=== PATIENT | male | born 1935 | race Caucasian/White ===

== ENCOUNTER 2017-06-08 07:30 | Inpatient (IN) | payer MEDICARE ==
[2017-06-08] MEDS ORDERED: Haloperidol Lactate 5 mg/mL 1mL Vial IM STA (07:43)
--- NOTE | 2017-06-08 07:43 | ED Physician Chart ---
ED Chief Complaint/HPI - Patient Information Date Seen:: 06/08/17 Time Seen:: 07:40 Chief Complaint:: Agitation History of Present Illness:: onset x one day of agitation and hostile behavior; no report of SIs, trauma, H/ As, neck pain, C/P, SOB, Abd. Pain, A/N/V/D/C, fever, chills, or urinary s/s Historian:: Patient, EMS Review:: Nurse's Note Reviewed, Old Chart Reviewed, EMS run form Reviewed ED Review of Systems - Review of Systems General/Constitutional: No fever, No chills, No weight loss, No weakness, No diaphoresis, No edema, No loss of appetite Skin: No skin lesions, No rash, No bruising Head: No headache, No light-headedness Eyes: No loss of vision, No pain, No diplopia ENT: No earache, No nasal drainage, No sore throat, No tinnitus Neck: No neck pain, No swelling, No thyromegaly, No stiffness, No mass noted Cardio Vascular: No chest pain, No palpitations, No PND, No orthopnea, No edema Pulmonary: No SOB, No cough, No sputum, No wheezing GI: No nausea, No vomiting, No diarrhea, No pain, No melena, No hematochezia, No constipation, No hematemesis G/U: No dysuria, No frequency, No hematuria, No nacturia Musculoskeletal: No bone or joint pain, No back pain, No muscle pain Endocrine: No polyuria, No polydipsia Psychiatric: Prior psych history, No depression, Anxiety, No suicidal ideation, No homicidal ideation, Auditory hallucination, No visual hallucination Hematopoietic: No bruising, No lymphadenopathy Allergic/Immuno: No urticaria, No angioedema Neurological: No syncope, No focal symptoms, No weakness, No paresthesia, No headache, No seizure, No dizziness, Confusion, No vertigo ED Past Medical History - Past Medical History Obtainable: Yes Past Medical History: HTN, Dyslipidemia, Arthritis, Dementia Family History: Diabetes Melitus, HTN Social History: Smoker, Alcohol, No Drug Use, Single, Care Facility Surgical History: None Psychiatricy History: Bipolar, Dementia Medication: Reviewed ED Physical Exam - Physical Examination General/Constitutional: Awake, Well-developed, well-nourished, Alert, No distress, GCS 15, Non-toxic appearing, Ambulatory Head: Atraumatic Eyes: Lids, conjuctiva normal, PERRL, EOMI Skin: Nl inspection, No rash, No skin lesions, No ecchymosis, Well hydrated, No lymphadenopathy ENMT: External ears, nose nl, TM canals nl, Nasal exam nl, Lips, teeth, gums nl , Oropharynx nl, Tonsils nl Neck: Nontender, Full ROM w/o pain, No JVD, No nuchal rigidity, No bruit, No mass, No stridor Respiratory: Nl effort/Exclusion, Clear to Auscultation, No Wheeze/Rhonchi/Rales Cardio Vascular: RRR, No murmur, gallop, rubs, NL S1 S2, Carotid/Femoral/Distal pulses equal bilaterally GI: No tenderness/rebounding/guarding, No organomegaly, No hernia, Normal BS's, Nondistended, No mass/bruits, No McBurney tenderness : No CVA tenderness Extremities: No tenderness or effusion, Full ROM, normal strength in all extremities, No edema, Normal digits & nails Neuro/Psych: Alert/oriented, DTR's symmetric, Normal sensory exam, Normal motor strength, Judgement/insight normal, Mood normal, Normal gait, No focal deficits Other Neuro/Psych comments:: Disoriented, Confused, and Agitated; + Psychmotor Agitationn; no SIs Misc: Normal back, No paraspinal tenderness ED Labs/Radiology/EKG Results - Lab Results Comments:: unremarkable ED Septic Shock - . Is Septic Shock (SBP<90, OR Lactate>4 mmol\L) present?: No ED Reassessment (Disposition) - Reassessment Reassessment:: pt is asymptomatic upon discharge Reassessment Condition:: Improved - Diagnosis Diagnosis:: Bipolar Disorder; Medical Clearance; Agitation-Resolved - Aftercare/Follow up Instructions Aftercare/Follow-Up Instructions:: Counseled pt regarding lab results/diagnosis & need follow up, Counseled pt & family regarding lab results/diagnosis & need follow up - Patient Disposition Discharge/Transfer:: Acute Care w/in this hosp Accepting Physician:: Dr. Christianson Time Called:: 929 Time Responded:: 09:30 Admitted to:: [facility] Spoke to:: Dr. Christianson Admitting Medical Physician:: Dr. Kadhium Admitting Psych Physician:: Dr. Reed Condition at Disposition:: Stable, Improved
[2017-06-08] MEDS ORDERED: Haloperidol Lactate 5 mg/mL 1mL Vial ONE (07:52)
[2017-06-08 08:08] LABS: URINE MICROSCOPIC INDICATED? YES; URINE SOURCE CLEAN C
[2017-06-08 08:13] LABS: URINE BILIRUBIN NEGATIVE (NEGATIVE); URINE BLOOD NEGATIVE (NEGATIVE); URINE GLUCOSE (UA) NEGATIVE (NEGATIVE); URINE KETONE NEGATIVE (NEGATIVE); URINE LEUKOCYTE ESTERASE NEGATIVE (NEGATIVE); URINE NITRATE NEGATIVE (NEGATIVE); URINE PROTEIN NEGATIVE (NEGATIVE); URINE UROBILINOGEN 0.2 E.U./dL (0.2 - 1.0)
[2017-06-08 08:24] LABS: URINE CLARITY CLEAR (CLEAR); URINE COLOR YELLOW
[2017-06-08 08:25] LABS: URINE RBC 0-2 /hpf (0-5)
[2017-06-08 08:26] LABS: URINE BACTERIA NONE SEEN /hpf (NONE SEEN); URINE EPITHELIAL CELLS RARE /lpf (FEW); URINE WBC 0-2 /hpf (0-5)
[2017-06-08 09:16] LABS: % BASOPHILS 0.7 % (0.0-2.0); % EOSINOPHILS 0.5 % (0.0-5.0); % LYMPHOCYTES 9.9 % (20.0-50.0); % MONOCYTES 6.5 % (2.0-10.0); % NEUTROPHILS 82.4 % (40.0-80.0); BASOPHILE ABSOLUTE 0.1 Th/cumm (0-0.2); HEMATOCRIT 31.9 % (41.0-60); HEMOGLOBIN 10.8 gm/dL (12-16); LYMPHOCYTE ABSOLUTE 0.9 Th/cmm (1.5-3.0); MEAN CELL VOLUME 91.5 fl (80-99); MEAN CORPUSCULAR HEMOGLOBIN 30.9 pg (27.0-31.0); MEAN CORPUSCULAR HGB CONC 33.8 pg (28.0-36.0); MEAN PLATELET VOLUME 6.9 fl; MONOCYTE ABSOLUTE 0.6 Th/cmm (0.3-1.0); NEUTROPHILE ABSOLUTE 7.6 Th/cmm (1.8-8.0); PLATELET COUNT 317 Th/cmm (150-400); RED BLOOD COUNT 3.48 Mil/cmm (3.80-5.80); RED CELL DISTRIBUTION WIDTH 14.4 % (11.5-20.0); WHITE BLOOD COUNT 9.2 Th/cmm (4.8-10.8)
[2017-06-08 09:32] LABS: ACETAMINOPHEN < 10.0 ug/mL (10.0-30.0); ALBUMIN 3.6 gm/dL (4.2-5.5); ALKALINE PHOSPHATASE 180 U/L (34-104); ANION GAP 7.4 (7.0-16.0); BILIRUBIN,TOTAL 0.5 mg/dL (0.3-1.0); BUN - UREA NITROGEN 28 mg/dL (7-25); CALCIUM SERUM 10.1 mg/dL (8.6-10.3); CARBON DIOXIDE 28.5 mEq/L (21.0-31.0); CHLORIDE 107 mEq/L (98-107); CHOLESTEROL 189 mg/dL (<200); CREATININE - SERUM 1.6 mg/dL (0.7-1.3); GLUCOSE 129 mg/dL (70-105); HDL -HIGH DENSITY LIPOPROTEIN 43 mg/dL (23-92); POTASSIUM SERUM 3.9 mEq/L (3.5-5.1); SALICYLATES (ASPIRIN) < 25.0 mg/L (30.0-100.0); SGOT 16 U/L (13-39); SGPT/ALT 13 U/L (7-52); SODIUM SERUM 139 mEq/L (136-145); TOTAL PROTEIN,SERUM 7.2 gm/dL (6.0-8.3); TRIGLYCERIDES 118 mg/dL (<150)
[2017-06-08 09:53] LABS: AMPHETAMINE URINE NEGATIVE (NEGATIVE); BARBITURATES URINE NEGATIVE (NEGATIVE); BENZODIAZEPINES QUAL URINE NEGATIVE (NEGATIVE); CANNABINOID THC NEGATIVE (NEGATIVE); COCAINE METABOLITE QUAL URINE NEGATIVE (NEGATIVE); METHADONE URINE NEGATIVE (NEGATIVE); METHAMPHETAMINES QUAL URINE NEGATIVE (NEGATIVE); OPIATES (MORPHINE) QUAL. URINE POSITIVE (NEGATIVE); PHENCYCLIDINE (PCP) URINE NEGATIVE (NEGATIVE); TRICYCLICS (TCA) QUAL. URINE NEGATIVE (NEGATIVE)
[2017-06-08 13:00] VITALS: BP 132/76
[2017-06-08] MEDS ORDERED: Magnesium Hydroxide (MOM) 30 mL UDC PO PRN (13:10)
[2017-06-08] MEDS ORDERED: Maalox 30 mL Cup PO PRN (13:10)
[2017-06-08 18:31] LABS: A1C % 4.8 % (4.0-6.0)
[2017-06-09] MEDS: Multivitamin Tab PO SCH (08:58)
--- NOTE | 2017-06-09 17:49 | Psychosocial Evaluation ---
DATE OF SERVICE: 06/09/2017 JUSTIFICATION FOR ADMISSION: Agitation, hostile behaviors. CHIEF COMPLAINT: "I am in the room, I am in the room." HISTORY OF PRESENT ILLNESS: An 82-year-old male, confused, disoriented, rambling speech, hostile, agitated, aggressive, very confused, disoriented, not answering any questions appropriately in a Abida chair. PAST PSYCHIATRIC HISTORY: Unclear but concern for dementia. FAMILY HISTORY: Unknown. SOCIAL HISTORY: The patient is not answering any questions. However, it is listed that he is residing in [facility], unclear social support at this time. We will try to increase collateral. MEDICAL PROBLEMS: Hypertension, arthritis also listed with dementia. MENTAL STATUS EXAMINATION: Stated age, in a Abida chair, restless, agitated, confused, rambling speech. No overt SI. Unclear psychotic symptoms. Poor insight, poor judgment, poor impulse control. Psychomotorically accelerated and agitated. MEDICATIONS: Noted. PROVISIONAL DIAGNOSES: hx of developmental disability; Dementia per documentation, will attempt to rule out; rule out dementia with behavioral disturbances; psychosis, unspecified; mood, unspecified; anxiety, unspecified. MEDICAL: Please see full H and P. ESTIMATED LENGTH OF STAY: 5-7 days. ASSESSMENT: The patient requiring inpatient hospitalization, agitated, confused, combative. PLAN: We will try to increase collateral. TREATMENT PLAN: Includes group as well as milieu therapy. CONDITIONS FOR DISCHARGE: Improved mood. Improved insight. Less agitation. JOB# [id number] YORDAN
--- NOTE | 2017-06-09 21:15 | History & Physical ---
ADMIT DATE: 06/08/2017 HISTORY OF PRESENT ILLNESS: The patient is an 82-year-old male with long history of dementia, degenerative joint disease, skin lesion of the forehead, resident at [facility], transferred to the Emergency Room with history of agitation. The patient was evaluated by the ER physician, admitted to [facility]. The patient is a very poor historian. PAST MEDICAL HISTORY: Significant for degenerative joint disease, chronic anemia, skin lesion of the external ear, agitation. PAST SURGICAL HISTORY: No recent surgery. ALLERGIES: None. MEDICATIONS: Follow admission reconciliation. SOCIAL HISTORY: Nonsmoker, no alcohol, no drugs. FAMILY HISTORY: Noncontributory. REVIEW OF SYSTEMS: IMMUNO SYSTEM: No history of chronic immune disorder. CARDIOVASCULAR SYSTEM: No coronary artery disease. ENDOCRINE SYSTEM: No diabetes or thyroid problem. GASTROINTESTINAL SYSTEM: No upper or lower gastrointestinal bleed. NEUROLOGICAL SYSTEM: He has history of dementia. SKELETOMUSCULAR SYSTEM: He has a lesion on the external ear. PHYSICAL EXAMINATION: GENERAL: He is not coherent. VITAL SIGNS: Temperature 98.7, heart rate 94, blood pressure 128/80. HEENT: Normocephalic. Pupils are reactive to light and accommodation. Sclerae clear. NECK: Supple. Negative for lymphadenopathy, JVD or bruit. CHEST: Entry of air bilateral normal. No rales, rhonchi or wheezing. HEART: S1, S2 normal, no gallop rhythm. ABDOMEN: Soft, bowel sounds positive. EXTREMITIES: No edema. BACK: No tenderness. SKIN: Significant for lesion on the right extremity. NEUROLOGIC: He is awake, alert, not fully oriented. No focal motor or sensory deficits. Cranial nerves 2-12 are intact. ASSESSMENT: 1. Anemia. 2. Dementia. 3. Skin lesion of the right external ear. 4. Degenerative joint disease. PLAN: The patient was admitted to the hospital under Dr. Reed service. Medical problems to be addressed during hospitalization is psychosis. Medical problems addressed at discharge are degenerative joint disease and anemia. The patient is medically stable for activity. Thank you, Dr. Reed, for asking me to see your patient. JOB# [id number]
[2017-06-10] MEDS: Multivitamin Tab PO SCH (09:51)
--- NOTE | 2017-06-10 16:40 | Progress Notes ---
DATE: 06/10/2017 An 82-year-old male, confused, disoriented, agitated when I say hello to him, he states," what do you want" and then uses an exploitive, the N word to be specific, very confused, staring blankly. Apparently, he is going to the [facility], still unruly at times, verbally accosting staff. ASSESSMENT: The patient remains symptomatic, unruly, agitated, aggressive. He is linked to the [facility] rude and unruly on exam. PLAN: We will continue to monitor given his hostile behavior. He is not safe for discharge. Currently on Namenda and Aricept. We will continue to monitor on his behaviors. [facility]# [id number]
--- NOTE | 2017-06-10 19:47 | Internal Medicine Prog Note ---
Internal Medicine Subjective - Subjective Service Date: 06/10/17 Patient seen and examined:: with staff Patient is:: awake, in bed, confused Per staff patient has:: no adverse event Internal Medicine Objective - Results Result Diagrams: 06/08/17 09:00 06/08/17 09:00 Recent Labs: Laboratory Last Values WBC 9.2 Th/cmm (4.8-10.8) 06/08/17 09:00 RBC 3.48 Mil/cmm (3.80-5.80) L 06/08/17 09:00 Hgb 10.8 gm/dL (12-16) L 06/08/17 09:00 Hct 31.9 % (41.0-60) L 06/08/17 09:00 MCV 91.5 fl (80-99) 06/08/17 09:00 MCH 30.9 pg (27.0-31.0) 06/08/17 09:00 MCHC Differential 33.8 pg (28.0-36.0) 06/08/17 09:00 RDW 14.4 % (11.5-20.0) 06/08/17 09:00 Plt Count 317 Th/cmm (150-400) 06/08/17 09:00 MPV 6.9 fl 06/08/17 09:00 Neutrophils % 82.4 % (40.0-80.0) H 06/08/17 09:00 Lymphocytes % 9.9 % (20.0-50.0) L 06/08/17 09:00 Monocytes % 6.5 % (2.0-10.0) 06/08/17 09:00 Eosinophils % 0.5 % (0.0-5.0) 06/08/17 09:00 Basophils % 0.7 % (0.0-2.0) 06/08/17 09:00 Sodium 139 mEq/L (136-145) 06/08/17 09:00 Potassium 3.9 mEq/L (3.5-5.1) 06/08/17 09:00 Chloride 107 mEq/L (98-107) 06/08/17 09:00 Carbon Dioxide 28.5 mEq/L (21.0-31.0) 06/08/17 09:00 Anion Gap 7.4 (7.0-16.0) 06/08/17 09:00 BUN 28 mg/dL (7-25) H 06/08/17 09:00 Creatinine 1.6 mg/dL (0.7-1.3) H 06/08/17 09:00 Est GFR ( Amer) TNP 06/08/17 09:00 Est GFR (Non-Af Amer) TNP 06/08/17 09:00 BUN/Creatinine Ratio 17.5 06/08/17 09:00 Glucose 129 mg/dL (70-105) H 06/08/17 09:00 Hemoglobin A1c % 4.8 % (4.0-6.0) 06/08/17 09:00 Calcium 10.1 mg/dL (8.6-10.3) 06/08/17 09:00 Total Bilirubin 0.5 mg/dL (0.3-1.0) 06/08/17 09:00 AST 16 U/L (13-39) 06/08/17 09:00 ALT 13 U/L (7-52) 06/08/17 09:00 Alkaline Phosphatase 180 U/L (34-104) H 06/08/17 09:00 Total Protein 7.2 gm/dL (6.0-8.3) 06/08/17 09:00 Albumin 3.6 gm/dL (4.2-5.5) L 06/08/17 09:00 Globulin 3.6 gm/dL 06/08/17 09:00 Albumin/Globulin Ratio 1.0 (1.0-1.8) 06/08/17 09:00 Triglycerides 118 mg/dL (<150) 06/08/17 09:00 Cholesterol 189 mg/dL (<200) 06/08/17 09:00 LDL Cholesterol Direct 137 mg/dL (75-193) 06/08/17 09:00 HDL Cholesterol 43 mg/dL (23-92) 06/08/17 09:00 TSH 3.25 uIU/ml (0.34-5.60) 06/08/17 09:00 Urine Source CLEAN C 06/08/17 07:45 Urine Color YELLOW 06/08/17 07:45 Urine Clarity CLEAR (CLEAR) 06/08/17 07:45 Urine pH 6.0 (4.6 - 8.0) 06/08/17 07:45 Ur Specific [place] 1.020 (1.005-1.030) 06/08/17 07:45 Urine Protein NEGATIVE mg/dL (NEGATIVE) 06/08/17 07:45 Urine Glucose (UA) NEGATIVE mg/dL (NEGATIVE) 06/08/17 07:45 Urine Ketones NEGATIVE mg/dL (NEGATIVE) 06/08/17 07:45 Urine Blood NEGATIVE (NEGATIVE) 06/08/17 07:45 Urine Nitrate NEGATIVE (NEGATIVE) 06/08/17 07:45 Urine Bilirubin NEGATIVE (NEGATIVE) 06/08/17 07:45 Urine Urobilinogen 0.2 E.U./dL (0.2 - 1.0) 06/08/17 07:45 Ur Leukocyte Esterase NEGATIVE (NEGATIVE) 06/08/17 07:45 Urine RBC 0-2 /hpf (0-5) H 06/08/17 07:45 Urine WBC 0-2 /hpf (0-5) 06/08/17 07:45 Ur Epithelial Cells RARE /lpf (FEW) 06/08/17 07:45 Urine Bacteria NONE SEEN /hpf (NONE SEEN) 06/08/17 07:45 Salicylates < 25.0 mg/L (30.0-100.0) L 06/08/17 09:00 Urine Opiates Screen POSITIVE (NEGATIVE) H 06/08/17 07:45 Urine Methadone Screen NEGATIVE (NEGATIVE) 06/08/17 07:45 Acetaminophen < 10.0 ug/mL (10.0-30.0) L 06/08/17 09:00 Ur Barbiturates Screen NEGATIVE (NEGATIVE) 06/08/17 07:45 Ur Tricyclics Screen NEGATIVE (NEGATIVE) 06/08/17 07:45 Ur Phencyclidine Scrn NEGATIVE (NEGATIVE) 06/08/17 07:45 Amphetamines Screen NEGATIVE (NEGATIVE) 06/08/17 07:45 U Methamphetamines Scrn NEGATIVE (NEGATIVE) 06/08/17 07:45 U Benzodiazepines Scrn NEGATIVE (NEGATIVE) 06/08/17 07:45 U Cocaine Metab Screen NEGATIVE (NEGATIVE) 06/08/17 07:45 U Cannabinoids Screen NEGATIVE (NEGATIVE) 06/08/17 07:45 Ethyl Alcohol < 10 mg/dL (0-10) 06/08/17 09:00 - Physical Exam Vitals and I&O: Vital Signs Temp 98.6 F 06/10/17 14:00 Pulse 91 06/10/17 14:00 Resp 20 06/10/17 14:00 BP 135/82 06/10/17 14:00 Pulse Ox 96 06/10/17 14:00 Intake & Output 06/10/17 06/10/17 06/11/17 06:59 18:59 06:59 Intake Total 120 1000 Balance 120 1000 Intake: Oral 120 1000 Other: # Voids 3 3 # Bowel Movements 0 1 Active Medications: Current Medications Acetaminophen (Tylenol) 650 mg PO Q4HR PRN PRN Reason: Mild Pain / Temp above 100 Stop: 08/07/17 13:09 Al Hydrox/Mg Hydrox/Simethicone (Maalox) 30 ml PO Q4HR PRN PRN Reason: GI DISTRESS Stop: 08/07/17 13:09 Donepezil HCl (Aricept) 5 mg PO HS CARMINE Stop: 08/08/17 20:59 Last Admin: 06/09/17 21:39 Dose: 5 mg Lorazepam (Ativan) 0.5 mg PO Q6HR PRN; Protocol PRN Reason: Agitation Stop: 08/08/17 17:00 Last Admin: 06/10/17 09:52 Dose: 0.5 mg Magnesium Hydroxide (Milk Of Magnesia) 30 ml PO HS PRN PRN Reason: Constipation Memantine (Namenda) 5 mg PO DAILY [facility]MINE Stop: 08/09/17 08:59 Last Admin: 06/10/17 09:51 Dose: 5 mg Multivitamins/Vitamin C (Theragran) 1 tab PO DAILY [facility] Stop: 08/08/17 08:59 Last Admin: 06/10/17 09:51 Dose: 1 tab Zolpidem Tartrate (Ambien) 5 mg PO HS PRN PRN Reason: Insomnia Stop: 08/07/17 13:09 Last Admin: 06/09/17 21:39 Dose: 5 mg General: demented HEENT: NC/AT, PERRLA, EOMI, anicteric sclerae, throat clear Neck: Supple, No JVD, No thyromegaly Lungs: CTAB Abdomen: soft, non-tender, non-distended Extremities: clear Neurological: no change Internal Medicine Assmt/Plan - Assessment Assessment: 1.ANEMIA 2.DJD. 3.LEFT EXTERNAL EAR SKIN LESION. 4.DEMENTIA. - Plan Plan: CONTINUE ON CURRENT MEDICATION AND DIET.
[2017-06-11] MEDS: Multivitamin Tab PO SCH (09:03)
--- NOTE | 2017-06-11 19:42 | Internal Medicine Prog Note ---
Internal Medicine Subjective - Subjective Service Date: 06/11/17 Patient seen and examined:: with staff Patient is:: awake, in bed, confused Per staff patient has:: no adverse event Internal Medicine Objective - Results Result Diagrams: 06/08/17 09:00 06/08/17 09:00 Recent Labs: Laboratory Last Values WBC 9.2 Th/cmm (4.8-10.8) 06/08/17 09:00 RBC 3.48 Mil/cmm (3.80-5.80) L 06/08/17 09:00 Hgb 10.8 gm/dL (12-16) L 06/08/17 09:00 Hct 31.9 % (41.0-60) L 06/08/17 09:00 MCV 91.5 fl (80-99) 06/08/17 09:00 MCH 30.9 pg (27.0-31.0) 06/08/17 09:00 MCHC Differential 33.8 pg (28.0-36.0) 06/08/17 09:00 RDW 14.4 % (11.5-20.0) 06/08/17 09:00 Plt Count 317 Th/cmm (150-400) 06/08/17 09:00 MPV 6.9 fl 06/08/17 09:00 Neutrophils % 82.4 % (40.0-80.0) H 06/08/17 09:00 Lymphocytes % 9.9 % (20.0-50.0) L 06/08/17 09:00 Monocytes % 6.5 % (2.0-10.0) 06/08/17 09:00 Eosinophils % 0.5 % (0.0-5.0) 06/08/17 09:00 Basophils % 0.7 % (0.0-2.0) 06/08/17 09:00 Sodium 139 mEq/L (136-145) 06/08/17 09:00 Potassium 3.9 mEq/L (3.5-5.1) 06/08/17 09:00 Chloride 107 mEq/L (98-107) 06/08/17 09:00 Carbon Dioxide 28.5 mEq/L (21.0-31.0) 06/08/17 09:00 Anion Gap 7.4 (7.0-16.0) 06/08/17 09:00 BUN 28 mg/dL (7-25) H 06/08/17 09:00 Creatinine 1.6 mg/dL (0.7-1.3) H 06/08/17 09:00 Est GFR ( Amer) TNP 06/08/17 09:00 Est GFR (Non-Af Amer) TNP 06/08/17 09:00 BUN/Creatinine Ratio 17.5 06/08/17 09:00 Glucose 129 mg/dL (70-105) H 06/08/17 09:00 Hemoglobin A1c % 4.8 % (4.0-6.0) 06/08/17 09:00 Calcium 10.1 mg/dL (8.6-10.3) 06/08/17 09:00 Total Bilirubin 0.5 mg/dL (0.3-1.0) 06/08/17 09:00 AST 16 U/L (13-39) 06/08/17 09:00 ALT 13 U/L (7-52) 06/08/17 09:00 Alkaline Phosphatase 180 U/L (34-104) H 06/08/17 09:00 Total Protein 7.2 gm/dL (6.0-8.3) 06/08/17 09:00 Albumin 3.6 gm/dL (4.2-5.5) L 06/08/17 09:00 Globulin 3.6 gm/dL 06/08/17 09:00 Albumin/Globulin Ratio 1.0 (1.0-1.8) 06/08/17 09:00 Triglycerides 118 mg/dL (<150) 06/08/17 09:00 Cholesterol 189 mg/dL (<200) 06/08/17 09:00 LDL Cholesterol Direct 137 mg/dL (75-193) 06/08/17 09:00 HDL Cholesterol 43 mg/dL (23-92) 06/08/17 09:00 TSH 3.25 uIU/ml (0.34-5.60) 06/08/17 09:00 Urine Source CLEAN C 06/08/17 07:45 Urine Color YELLOW 06/08/17 07:45 Urine Clarity CLEAR (CLEAR) 06/08/17 07:45 Urine pH 6.0 (4.6 - 8.0) 06/08/17 07:45 Ur Specific [place] 1.020 (1.005-1.030) 06/08/17 07:45 Urine Protein NEGATIVE mg/dL (NEGATIVE) 06/08/17 07:45 Urine Glucose (UA) NEGATIVE mg/dL (NEGATIVE) 06/08/17 07:45 Urine Ketones NEGATIVE mg/dL (NEGATIVE) 06/08/17 07:45 Urine Blood NEGATIVE (NEGATIVE) 06/08/17 07:45 Urine Nitrate NEGATIVE (NEGATIVE) 06/08/17 07:45 Urine Bilirubin NEGATIVE (NEGATIVE) 06/08/17 07:45 Urine Urobilinogen 0.2 E.U./dL (0.2 - 1.0) 06/08/17 07:45 Ur Leukocyte Esterase NEGATIVE (NEGATIVE) 06/08/17 07:45 Urine RBC 0-2 /hpf (0-5) H 06/08/17 07:45 Urine WBC 0-2 /hpf (0-5) 06/08/17 07:45 Ur Epithelial Cells RARE /lpf (FEW) 06/08/17 07:45 Urine Bacteria NONE SEEN /hpf (NONE SEEN) 06/08/17 07:45 Salicylates < 25.0 mg/L (30.0-100.0) L 06/08/17 09:00 Urine Opiates Screen POSITIVE (NEGATIVE) H 06/08/17 07:45 Urine Methadone Screen NEGATIVE (NEGATIVE) 06/08/17 07:45 Acetaminophen < 10.0 ug/mL (10.0-30.0) L 06/08/17 09:00 Ur Barbiturates Screen NEGATIVE (NEGATIVE) 06/08/17 07:45 Ur Tricyclics Screen NEGATIVE (NEGATIVE) 06/08/17 07:45 Ur Phencyclidine Scrn NEGATIVE (NEGATIVE) 06/08/17 07:45 Amphetamines Screen NEGATIVE (NEGATIVE) 06/08/17 07:45 U Methamphetamines Scrn NEGATIVE (NEGATIVE) 06/08/17 07:45 U Benzodiazepines Scrn NEGATIVE (NEGATIVE) 06/08/17 07:45 U Cocaine Metab Screen NEGATIVE (NEGATIVE) 06/08/17 07:45 U Cannabinoids Screen NEGATIVE (NEGATIVE) 06/08/17 07:45 Ethyl Alcohol < 10 mg/dL (0-10) 06/08/17 09:00 RPR NONREACTIVE (NONREACTIVE) 06/08/17 09:00 - Physical Exam Vitals and I&O: Vital Signs Temp 97.9 F 06/11/17 16:27 Pulse 77 06/11/17 16:27 Resp 19 06/11/17 16:27 BP 133/57 06/11/17 16:27 Pulse Ox 97 06/11/17 16:27 Intake & Output 06/11/17 06/11/17 06/12/17 06:59 18:59 06:59 Intake Total 400 900 Balance 400 900 Intake: Oral 400 900 Other: # Voids 3 4 # Bowel Movements 1 1 Active Medications: Current Medications Acetaminophen (Tylenol) 650 mg PO Q4HR PRN PRN Reason: Mild Pain / Temp above 100 Stop: 08/07/17 13:09 Al Hydrox/Mg Hydrox/Simethicone (Maalox) 30 ml PO Q4HR PRN PRN Reason: GI DISTRESS Stop: 08/07/17 13:09 Donepezil HCl (Aricept) 5 mg PO HS CARMINE Stop: 08/08/17 20:59 Last Admin: 06/10/17 20:48 Dose: 5 mg Lorazepam (Ativan) 0.5 mg PO Q6HR PRN; Protocol PRN Reason: Agitation Stop: 08/08/17 17:00 Last Admin: 06/10/17 09:52 Dose: 0.5 mg Magnesium Hydroxide (Milk Of Magnesia) 30 ml PO HS PRN PRN Reason: Constipation Memantine (Namenda) 5 mg PO DAILY CARMINE Stop: 08/09/17 08:59 Last Admin: 06/11/17 09:03 Dose: Not Given Multivitamins/Vitamin C (Theragran) 1 tab PO DAILY [facility] Stop: 08/08/17 08:59 Last Admin: 06/11/17 09:03 Dose: Not Given Zolpidem Tartrate (Ambien) 5 mg PO HS PRN PRN Reason: Insomnia Stop: 08/07/17 13:09 Last Admin: 06/10/17 20:48 Dose: 5 mg General: demented HEENT: NC/AT, PERRLA, EOMI, anicteric sclerae, throat clear Neck: Supple, No JVD, No thyromegaly Lungs: CTAB Abdomen: soft, non-tender, non-distended Extremities: clear Neurological: no change Internal Medicine Assmt/Plan - Assessment Assessment: 1.ANEMIA 2.DJD. 3.LEFT EXTERNAL EAR SKIN LESION. 4.DEMENTIA. - Plan Plan: CONTINUE ON CURRENT MEDICATION AND DIET.
--- NOTE | 2017-06-11 19:53 | Progress Notes ---
DATE: 06/11/2017 The patient is currently in the hospital, seen today 06/11/2017, agitation, escalation of behaviors, disoriented on [id number] today, the patient mumbling and nonsensical statements I can understand him. Yesterday, he was screaming expletives and was quite rude, dementia per documentation, the patient remains unruly highly unpredictable, still with ongoing symptoms indicative of behavioral disturbances and indicative of instability. He is linked to the [facility]. He remains reclusive and isolated. Currently, started on Namenda, Aricept as well. ASSESSMENT: The patient remains symptomatic, unruly, impulsive, unpredictable, still at times verbally accosting staff including this clinician. He remains pretty confused. PLAN: We will continue to monitor. We will monitor for any further behavioral disturbances and will make appropriate medication adjustments. JOB# [id number]
[2017-06-12] MEDS: Multivitamin Tab PO SCH (08:52)
--- NOTE | 2017-06-12 19:14 | Internal Medicine Prog Note ---
Internal Medicine Subjective - Subjective Service Date: 06/12/17 Patient seen and examined:: with staff Patient is:: awake, in bed, confused Per staff patient has:: no adverse event Internal Medicine Objective - Results Result Diagrams: 06/08/17 09:00 06/08/17 09:00 Recent Labs: Laboratory Last Values WBC 9.2 Th/cmm (4.8-10.8) 06/08/17 09:00 RBC 3.48 Mil/cmm (3.80-5.80) L 06/08/17 09:00 Hgb 10.8 gm/dL (12-16) L 06/08/17 09:00 Hct 31.9 % (41.0-60) L 06/08/17 09:00 MCV 91.5 fl (80-99) 06/08/17 09:00 MCH 30.9 pg (27.0-31.0) 06/08/17 09:00 MCHC Differential 33.8 pg (28.0-36.0) 06/08/17 09:00 RDW 14.4 % (11.5-20.0) 06/08/17 09:00 Plt Count 317 Th/cmm (150-400) 06/08/17 09:00 MPV 6.9 fl 06/08/17 09:00 Neutrophils % 82.4 % (40.0-80.0) H 06/08/17 09:00 Lymphocytes % 9.9 % (20.0-50.0) L 06/08/17 09:00 Monocytes % 6.5 % (2.0-10.0) 06/08/17 09:00 Eosinophils % 0.5 % (0.0-5.0) 06/08/17 09:00 Basophils % 0.7 % (0.0-2.0) 06/08/17 09:00 Sodium 139 mEq/L (136-145) 06/08/17 09:00 Potassium 3.9 mEq/L (3.5-5.1) 06/08/17 09:00 Chloride 107 mEq/L (98-107) 06/08/17 09:00 Carbon Dioxide 28.5 mEq/L (21.0-31.0) 06/08/17 09:00 Anion Gap 7.4 (7.0-16.0) 06/08/17 09:00 BUN 28 mg/dL (7-25) H 06/08/17 09:00 Creatinine 1.6 mg/dL (0.7-1.3) H 06/08/17 09:00 Est GFR ( Amer) TNP 06/08/17 09:00 Est GFR (Non-Af Amer) TNP 06/08/17 09:00 BUN/Creatinine Ratio 17.5 06/08/17 09:00 Glucose 129 mg/dL (70-105) H 06/08/17 09:00 Hemoglobin A1c % 4.8 % (4.0-6.0) 06/08/17 09:00 Calcium 10.1 mg/dL (8.6-10.3) 06/08/17 09:00 Total Bilirubin 0.5 mg/dL (0.3-1.0) 06/08/17 09:00 AST 16 U/L (13-39) 06/08/17 09:00 ALT 13 U/L (7-52) 06/08/17 09:00 Alkaline Phosphatase 180 U/L (34-104) H 06/08/17 09:00 Total Protein 7.2 gm/dL (6.0-8.3) 06/08/17 09:00 Albumin 3.6 gm/dL (4.2-5.5) L 06/08/17 09:00 Globulin 3.6 gm/dL 06/08/17 09:00 Albumin/Globulin Ratio 1.0 (1.0-1.8) 06/08/17 09:00 Triglycerides 118 mg/dL (<150) 06/08/17 09:00 Cholesterol 189 mg/dL (<200) 06/08/17 09:00 LDL Cholesterol Direct 137 mg/dL (75-193) 06/08/17 09:00 HDL Cholesterol 43 mg/dL (23-92) 06/08/17 09:00 TSH 3.25 uIU/ml (0.34-5.60) 06/08/17 09:00 Urine Source CLEAN C 06/08/17 07:45 Urine Color YELLOW 06/08/17 07:45 Urine Clarity CLEAR (CLEAR) 06/08/17 07:45 Urine pH 6.0 (4.6 - 8.0) 06/08/17 07:45 Ur Specific [place] 1.020 (1.005-1.030) 06/08/17 07:45 Urine Protein NEGATIVE mg/dL (NEGATIVE) 06/08/17 07:45 Urine Glucose (UA) NEGATIVE mg/dL (NEGATIVE) 06/08/17 07:45 Urine Ketones NEGATIVE mg/dL (NEGATIVE) 06/08/17 07:45 Urine Blood NEGATIVE (NEGATIVE) 06/08/17 07:45 Urine Nitrate NEGATIVE (NEGATIVE) 06/08/17 07:45 Urine Bilirubin NEGATIVE (NEGATIVE) 06/08/17 07:45 Urine Urobilinogen 0.2 E.U./dL (0.2 - 1.0) 06/08/17 07:45 Ur Leukocyte Esterase NEGATIVE (NEGATIVE) 06/08/17 07:45 Urine RBC 0-2 /hpf (0-5) H 06/08/17 07:45 Urine WBC 0-2 /hpf (0-5) 06/08/17 07:45 Ur Epithelial Cells RARE /lpf (FEW) 06/08/17 07:45 Urine Bacteria NONE SEEN /hpf (NONE SEEN) 06/08/17 07:45 Salicylates < 25.0 mg/L (30.0-100.0) L 06/08/17 09:00 Urine Opiates Screen POSITIVE (NEGATIVE) H 06/08/17 07:45 Urine Methadone Screen NEGATIVE (NEGATIVE) 06/08/17 07:45 Acetaminophen < 10.0 ug/mL (10.0-30.0) L 06/08/17 09:00 Ur Barbiturates Screen NEGATIVE (NEGATIVE) 06/08/17 07:45 Ur Tricyclics Screen NEGATIVE (NEGATIVE) 06/08/17 07:45 Ur Phencyclidine Scrn NEGATIVE (NEGATIVE) 06/08/17 07:45 Amphetamines Screen NEGATIVE (NEGATIVE) 06/08/17 07:45 U Methamphetamines Scrn NEGATIVE (NEGATIVE) 06/08/17 07:45 U Benzodiazepines Scrn NEGATIVE (NEGATIVE) 06/08/17 07:45 U Cocaine Metab Screen NEGATIVE (NEGATIVE) 06/08/17 07:45 U Cannabinoids Screen NEGATIVE (NEGATIVE) 06/08/17 07:45 Ethyl Alcohol < 10 mg/dL (0-10) 06/08/17 09:00 RPR NONREACTIVE (NONREACTIVE) 06/08/17 09:00 - Physical Exam Vitals and I&O: Vital Signs Temp 98.6 F 06/12/17 14:49 Pulse 60 06/12/17 14:49 Resp 18 06/12/17 14:49 BP 119/58 06/12/17 14:49 Pulse Ox 98 06/12/17 14:49 Intake & Output 06/12/17 06/12/17 06/13/17 06:59 18:59 07:59 Intake Total 490 900 Balance 490 900 Intake: Oral 490 900 Other: # Voids 3 4 # Bowel Movements 0 2 Active Medications: Current Medications Acetaminophen (Tylenol) 650 mg PO Q4HR PRN PRN Reason: Mild Pain / Temp above 100 Stop: 08/07/17 13:09 Al Hydrox/Mg Hydrox/Simethicone (Maalox) 30 ml PO Q4HR PRN PRN Reason: GI DISTRESS Stop: 08/07/17 13:09 Donepezil HCl (Aricept) 5 mg PO HS CARMINE Stop: 08/08/17 20:59 Last Admin: 06/11/17 20:43 Dose: 5 mg Lorazepam (Ativan) 0.5 mg PO Q6HR PRN; Protocol PRN Reason: Agitation Stop: 08/08/17 17:00 Last Admin: 06/11/17 20:43 Dose: 0.5 mg Magnesium Hydroxide (Milk Of Magnesia) 30 ml PO HS PRN PRN Reason: Constipation Memantine (Namenda) 5 mg PO DAILY CARMINE Stop: 08/09/17 08:59 Last Admin: 06/12/17 08:52 Dose: 5 mg Multivitamins/Vitamin C (Theragran) 1 tab PO DAILY CARMINE Stop: 08/08/17 08:59 Last Admin: 06/12/17 08:52 Dose: 1 tab Zolpidem Tartrate (Ambien) 5 mg PO HS PRN PRN Reason: Insomnia Stop: 08/07/17 13:09 Last Admin: 06/11/17 20:44 Dose: 5 mg General: demented HEENT: NC/AT, PERRLA, EOMI, anicteric sclerae, throat clear Neck: Supple, No JVD, No thyromegaly Lungs: CTAB Abdomen: soft, non-tender, non-distended Extremities: clear Neurological: no change Internal Medicine Assmt/Plan - Assessment Assessment: 1.ANEMIA 2.DJD. 3.LEFT EXTERNAL EAR SKIN LESION. 4.DEMENTIA. - Plan Plan: CONTINUE ON CURRENT MEDICATION AND DIET.
--- NOTE | 2017-06-12 22:55 | Progress Notes ---
DATE: 06/12/2017 Dr. Schneider covering for Dr. Reed. SUBJECTIVE: Chart reviewed and the patient interviewed. Also discussed the patient's condition with the staff and reviewed records and labs. The patient is still agitated and still have episodes of aggressive behavior and also still seems to be disoriented. The patient also has still disorganized thoughts and talking to self and mumbling and because of yelling and screaming. The patient also needs lots of redirections because of his unpredictable behavior. ASSESSMENT: The patient is still agitated and psychotic. TREATMENT PLAN: We will continue monitoring his behavior and his condition closely. Also, we will continue Namenda and Aricept and will continue to monitor behavior closely. JOB# [id number]
[2017-06-13] MEDS: Multivitamin Tab PO SCH (10:20)
--- NOTE | 2017-06-13 18:08 | Progress Notes ---
DATE: 06/13/2017 Chart reviewed and the patient interviewed. Also discussed the patient's condition with the staff and reviewed records and labs. The patient is agitated and is today covering his face and did not want to talk to me. Also, easily agitated and easily irritable, but at the same time when he cannot cover the face seems to be paranoid and disoriented. The patient also still has disorganized thoughts and rambling and thought processes are circumstantial with flight of ideas. The patient also still has episodes of yelling and screaming, but seems to be less than before. ASSESSMENT: The patient is still psychotic. TREATMENT PLAN: We will continue to monitor his behavior and his condition closely. Also, continue Aricept and Namenda and continued to work on behavior modification and on his agitation. JOB# [id number]
--- NOTE | 2017-06-13 23:46 | Internal Medicine Prog Note ---
Internal Medicine Subjective - Subjective Service Date: 06/13/17 Patient seen and examined:: without staff Patient is:: awake, in bed, confused Per staff patient has:: no adverse event Internal Medicine Objective - Results Result Diagrams: 06/08/17 09:00 06/08/17 09:00 Recent Labs: Laboratory Last Values WBC 9.2 Th/cmm (4.8-10.8) 06/08/17 09:00 RBC 3.48 Mil/cmm (3.80-5.80) L 06/08/17 09:00 Hgb 10.8 gm/dL (12-16) L 06/08/17 09:00 Hct 31.9 % (41.0-60) L 06/08/17 09:00 MCV 91.5 fl (80-99) 06/08/17 09:00 MCH 30.9 pg (27.0-31.0) 06/08/17 09:00 MCHC Differential 33.8 pg (28.0-36.0) 06/08/17 09:00 RDW 14.4 % (11.5-20.0) 06/08/17 09:00 Plt Count 317 Th/cmm (150-400) 06/08/17 09:00 MPV 6.9 fl 06/08/17 09:00 Neutrophils % 82.4 % (40.0-80.0) H 06/08/17 09:00 Lymphocytes % 9.9 % (20.0-50.0) L 06/08/17 09:00 Monocytes % 6.5 % (2.0-10.0) 06/08/17 09:00 Eosinophils % 0.5 % (0.0-5.0) 06/08/17 09:00 Basophils % 0.7 % (0.0-2.0) 06/08/17 09:00 Sodium 139 mEq/L (136-145) 06/08/17 09:00 Potassium 3.9 mEq/L (3.5-5.1) 06/08/17 09:00 Chloride 107 mEq/L (98-107) 06/08/17 09:00 Carbon Dioxide 28.5 mEq/L (21.0-31.0) 06/08/17 09:00 Anion Gap 7.4 (7.0-16.0) 06/08/17 09:00 BUN 28 mg/dL (7-25) H 06/08/17 09:00 Creatinine 1.6 mg/dL (0.7-1.3) H 06/08/17 09:00 Est GFR ( Amer) TNP 06/08/17 09:00 Est GFR (Non-Af Amer) TNP 06/08/17 09:00 BUN/Creatinine Ratio 17.5 06/08/17 09:00 Glucose 129 mg/dL (70-105) H 06/08/17 09:00 Hemoglobin A1c % 4.8 % (4.0-6.0) 06/08/17 09:00 Calcium 10.1 mg/dL (8.6-10.3) 06/08/17 09:00 Total Bilirubin 0.5 mg/dL (0.3-1.0) 06/08/17 09:00 AST 16 U/L (13-39) 06/08/17 09:00 ALT 13 U/L (7-52) 06/08/17 09:00 Alkaline Phosphatase 180 U/L (34-104) H 06/08/17 09:00 Total Protein 7.2 gm/dL (6.0-8.3) 06/08/17 09:00 Albumin 3.6 gm/dL (4.2-5.5) L 06/08/17 09:00 Globulin 3.6 gm/dL 06/08/17 09:00 Albumin/Globulin Ratio 1.0 (1.0-1.8) 06/08/17 09:00 Triglycerides 118 mg/dL (<150) 06/08/17 09:00 Cholesterol 189 mg/dL (<200) 06/08/17 09:00 LDL Cholesterol Direct 137 mg/dL (75-193) 06/08/17 09:00 HDL Cholesterol 43 mg/dL (23-92) 06/08/17 09:00 TSH 3.25 uIU/ml (0.34-5.60) 06/08/17 09:00 Urine Source CLEAN C 06/08/17 07:45 Urine Color YELLOW 06/08/17 07:45 Urine Clarity CLEAR (CLEAR) 06/08/17 07:45 Urine pH 6.0 (4.6 - 8.0) 06/08/17 07:45 Ur Specific [place] 1.020 (1.005-1.030) 06/08/17 07:45 Urine Protein NEGATIVE mg/dL (NEGATIVE) 06/08/17 07:45 Urine Glucose (UA) NEGATIVE mg/dL (NEGATIVE) 06/08/17 07:45 Urine Ketones NEGATIVE mg/dL (NEGATIVE) 06/08/17 07:45 Urine Blood NEGATIVE (NEGATIVE) 06/08/17 07:45 Urine Nitrate NEGATIVE (NEGATIVE) 06/08/17 07:45 Urine Bilirubin NEGATIVE (NEGATIVE) 06/08/17 07:45 Urine Urobilinogen 0.2 E.U./dL (0.2 - 1.0) 06/08/17 07:45 Ur Leukocyte Esterase NEGATIVE (NEGATIVE) 06/08/17 07:45 Urine RBC 0-2 /hpf (0-5) H 06/08/17 07:45 Urine WBC 0-2 /hpf (0-5) 06/08/17 07:45 Ur Epithelial Cells RARE /lpf (FEW) 06/08/17 07:45 Urine Bacteria NONE SEEN /hpf (NONE SEEN) 06/08/17 07:45 Salicylates < 25.0 mg/L (30.0-100.0) L 06/08/17 09:00 Urine Opiates Screen POSITIVE (NEGATIVE) H 06/08/17 07:45 Urine Methadone Screen NEGATIVE (NEGATIVE) 06/08/17 07:45 Acetaminophen < 10.0 ug/mL (10.0-30.0) L 06/08/17 09:00 Ur Barbiturates Screen NEGATIVE (NEGATIVE) 06/08/17 07:45 Ur Tricyclics Screen NEGATIVE (NEGATIVE) 06/08/17 07:45 Ur Phencyclidine Scrn NEGATIVE (NEGATIVE) 06/08/17 07:45 Amphetamines Screen NEGATIVE (NEGATIVE) 06/08/17 07:45 U Methamphetamines Scrn NEGATIVE (NEGATIVE) 06/08/17 07:45 U Benzodiazepines Scrn NEGATIVE (NEGATIVE) 06/08/17 07:45 U Cocaine Metab Screen NEGATIVE (NEGATIVE) 06/08/17 07:45 U Cannabinoids Screen NEGATIVE (NEGATIVE) 06/08/17 07:45 Ethyl Alcohol < 10 mg/dL (0-10) 06/08/17 09:00 RPR NONREACTIVE (NONREACTIVE) 06/08/17 09:00 - Physical Exam Vitals and I&O: Vital Signs Temp 97.3 F 06/13/17 20:38 Pulse 79 06/13/17 20:38 Resp 20 06/13/17 20:38 BP 108/55 06/13/17 20:38 Pulse Ox 99 06/13/17 20:38 Intake & Output 06/13/17 06/13/17 06/14/17 06:59 18:59 06:59 Intake Total 900 Balance 900 Intake: Oral 900 Other: # Voids 3 # Bowel Movements Active Medications: Current Medications Acetaminophen (Tylenol) 650 mg PO Q4HR PRN PRN Reason: Mild Pain / Temp above 100 Stop: 08/07/17 13:09 Al Hydrox/Mg Hydrox/Simethicone (Maalox) 30 ml PO Q4HR PRN PRN Reason: GI DISTRESS Stop: 08/07/17 13:09 Donepezil HCl (Aricept) 5 mg PO HS CARMINE Stop: 08/08/17 20:59 Last Admin: 06/13/17 20:53 Dose: 5 mg Lorazepam (Ativan) 0.5 mg PO Q6HR PRN; Protocol PRN Reason: Agitation Stop: 08/08/17 17:00 Last Admin: 06/13/17 14:42 Dose: 0.5 mg Magnesium Hydroxide (Milk Of Magnesia) 30 ml PO HS PRN PRN Reason: Constipation Memantine (Namenda) 5 mg PO DAILY CARMINE Stop: 08/09/17 08:59 Last Admin: 06/13/17 10:20 Dose: Not Given Multivitamins/Vitamin C (Theragran) 1 tab PO DAILY CARMINE Stop: 08/08/17 08:59 Last Admin: 06/13/17 10:20 Dose: Not Given Zolpidem Tartrate (Ambien) 5 mg PO HS PRN PRN Reason: Insomnia Stop: 08/07/17 13:09 Last Admin: 06/13/17 20:53 Dose: 5 mg General: demented HEENT: NC/AT, PERRLA, EOMI, anicteric sclerae, throat clear Neck: Supple, No JVD, No thyromegaly Lungs: CTAB Abdomen: soft, non-tender, non-distended Extremities: clear Neurological: no change Internal Medicine Assmt/Plan - Assessment Assessment: 1.ANEMIA 2.DJD. 3.LEFT EXTERNAL EAR SKIN LESION. 4.DEMENTIA. - Plan Plan: CONTINUE ON CURRENT MEDICATION AND DIET.
[2017-06-14] MEDS: Multivitamin Tab PO SCH (12:47)
--- NOTE | 2017-06-14 19:18 | Internal Medicine Prog Note ---
Internal Medicine Subjective - Subjective Service Date: 06/14/17 Patient seen and examined:: with staff Patient is:: awake, in bed, confused Per staff patient has:: no adverse event Internal Medicine Objective - Results Result Diagrams: 06/08/17 09:00 06/08/17 09:00 Recent Labs: Laboratory Last Values WBC 9.2 Th/cmm (4.8-10.8) 06/08/17 09:00 RBC 3.48 Mil/cmm (3.80-5.80) L 06/08/17 09:00 Hgb 10.8 gm/dL (12-16) L 06/08/17 09:00 Hct 31.9 % (41.0-60) L 06/08/17 09:00 MCV 91.5 fl (80-99) 06/08/17 09:00 MCH 30.9 pg (27.0-31.0) 06/08/17 09:00 MCHC Differential 33.8 pg (28.0-36.0) 06/08/17 09:00 RDW 14.4 % (11.5-20.0) 06/08/17 09:00 Plt Count 317 Th/cmm (150-400) 06/08/17 09:00 MPV 6.9 fl 06/08/17 09:00 Neutrophils % 82.4 % (40.0-80.0) H 06/08/17 09:00 Lymphocytes % 9.9 % (20.0-50.0) L 06/08/17 09:00 Monocytes % 6.5 % (2.0-10.0) 06/08/17 09:00 Eosinophils % 0.5 % (0.0-5.0) 06/08/17 09:00 Basophils % 0.7 % (0.0-2.0) 06/08/17 09:00 Sodium 139 mEq/L (136-145) 06/08/17 09:00 Potassium 3.9 mEq/L (3.5-5.1) 06/08/17 09:00 Chloride 107 mEq/L (98-107) 06/08/17 09:00 Carbon Dioxide 28.5 mEq/L (21.0-31.0) 06/08/17 09:00 Anion Gap 7.4 (7.0-16.0) 06/08/17 09:00 BUN 28 mg/dL (7-25) H 06/08/17 09:00 Creatinine 1.6 mg/dL (0.7-1.3) H 06/08/17 09:00 Est GFR ( Amer) TNP 06/08/17 09:00 Est GFR (Non-Af Amer) TNP 06/08/17 09:00 BUN/Creatinine Ratio 17.5 06/08/17 09:00 Glucose 129 mg/dL (70-105) H 06/08/17 09:00 Hemoglobin A1c % 4.8 % (4.0-6.0) 06/08/17 09:00 Calcium 10.1 mg/dL (8.6-10.3) 06/08/17 09:00 Total Bilirubin 0.5 mg/dL (0.3-1.0) 06/08/17 09:00 AST 16 U/L (13-39) 06/08/17 09:00 ALT 13 U/L (7-52) 06/08/17 09:00 Alkaline Phosphatase 180 U/L (34-104) H 06/08/17 09:00 Total Protein 7.2 gm/dL (6.0-8.3) 06/08/17 09:00 Albumin 3.6 gm/dL (4.2-5.5) L 06/08/17 09:00 Globulin 3.6 gm/dL 06/08/17 09:00 Albumin/Globulin Ratio 1.0 (1.0-1.8) 06/08/17 09:00 Triglycerides 118 mg/dL (<150) 06/08/17 09:00 Cholesterol 189 mg/dL (<200) 06/08/17 09:00 LDL Cholesterol Direct 137 mg/dL (75-193) 06/08/17 09:00 HDL Cholesterol 43 mg/dL (23-92) 06/08/17 09:00 TSH 3.25 uIU/ml (0.34-5.60) 06/08/17 09:00 Urine Source CLEAN C 06/08/17 07:45 Urine Color YELLOW 06/08/17 07:45 Urine Clarity CLEAR (CLEAR) 06/08/17 07:45 Urine pH 6.0 (4.6 - 8.0) 06/08/17 07:45 Ur Specific [place] 1.020 (1.005-1.030) 06/08/17 07:45 Urine Protein NEGATIVE mg/dL (NEGATIVE) 06/08/17 07:45 Urine Glucose (UA) NEGATIVE mg/dL (NEGATIVE) 06/08/17 07:45 Urine Ketones NEGATIVE mg/dL (NEGATIVE) 06/08/17 07:45 Urine Blood NEGATIVE (NEGATIVE) 06/08/17 07:45 Urine Nitrate NEGATIVE (NEGATIVE) 06/08/17 07:45 Urine Bilirubin NEGATIVE (NEGATIVE) 06/08/17 07:45 Urine Urobilinogen 0.2 E.U./dL (0.2 - 1.0) 06/08/17 07:45 Ur Leukocyte Esterase NEGATIVE (NEGATIVE) 06/08/17 07:45 Urine RBC 0-2 /hpf (0-5) H 06/08/17 07:45 Urine WBC 0-2 /hpf (0-5) 06/08/17 07:45 Ur Epithelial Cells RARE /lpf (FEW) 06/08/17 07:45 Urine Bacteria NONE SEEN /hpf (NONE SEEN) 06/08/17 07:45 Salicylates < 25.0 mg/L (30.0-100.0) L 06/08/17 09:00 Urine Opiates Screen POSITIVE (NEGATIVE) H 06/08/17 07:45 Urine Methadone Screen NEGATIVE (NEGATIVE) 06/08/17 07:45 Acetaminophen < 10.0 ug/mL (10.0-30.0) L 06/08/17 09:00 Ur Barbiturates Screen NEGATIVE (NEGATIVE) 06/08/17 07:45 Ur Tricyclics Screen NEGATIVE (NEGATIVE) 06/08/17 07:45 Ur Phencyclidine Scrn NEGATIVE (NEGATIVE) 06/08/17 07:45 Amphetamines Screen NEGATIVE (NEGATIVE) 06/08/17 07:45 U Methamphetamines Scrn NEGATIVE (NEGATIVE) 06/08/17 07:45 U Benzodiazepines Scrn NEGATIVE (NEGATIVE) 06/08/17 07:45 U Cocaine Metab Screen NEGATIVE (NEGATIVE) 06/08/17 07:45 U Cannabinoids Screen NEGATIVE (NEGATIVE) 06/08/17 07:45 Ethyl Alcohol < 10 mg/dL (0-10) 06/08/17 09:00 RPR NONREACTIVE (NONREACTIVE) 06/08/17 09:00 - Physical Exam Vitals and I&O: Vital Signs Temp 97.6 F 06/14/17 15:19 Pulse 82 06/14/17 15:19 Resp 19 06/14/17 15:19 BP 108/59 06/14/17 15:19 Pulse Ox 99 06/14/17 15:19 Intake & Output 06/14/17 06/14/17 06/15/17 06:59 18:59 06:59 Intake Total 1020 900 Balance 1020 900 Intake: Oral 1020 900 Other: # Voids 3 4 # Bowel Movements 1 Active Medications: Current Medications Acetaminophen (Tylenol) 650 mg PO Q4HR PRN PRN Reason: Mild Pain / Temp above 100 Stop: 08/07/17 13:09 Al Hydrox/Mg Hydrox/Simethicone (Maalox) 30 ml PO Q4HR PRN PRN Reason: GI DISTRESS Stop: 08/07/17 13:09 Donepezil HCl (Aricept) 5 mg PO HS CARMINE Stop: 08/08/17 20:59 Last Admin: 06/13/17 20:53 Dose: 5 mg Lorazepam (Ativan) 0.5 mg PO Q6HR PRN PRN Reason: Agitation Stop: 08/13/17 16:06 Magnesium Hydroxide (Milk Of Magnesia) 30 ml PO HS PRN PRN Reason: Constipation Memantine (Namenda) 5 mg PO DAILY [facility] Stop: 08/09/17 08:59 Last Admin: 06/14/17 12:47 Dose: Not Given Multivitamins/Vitamin C (Theragran) 1 tab PO DAILY CARMINE Stop: 08/08/17 08:59 Last Admin: 06/14/17 12:47 Dose: Not Given Zolpidem Tartrate (Ambien) 5 mg PO HS PRN PRN Reason: Insomnia Stop: 08/07/17 13:09 Last Admin: 06/13/17 20:53 Dose: 5 mg General: demented HEENT: NC/AT, PERRLA, EOMI, anicteric sclerae, throat clear Neck: Supple, No JVD, No thyromegaly Lungs: CTAB Abdomen: soft, non-tender, non-distended Extremities: clear Neurological: no change Internal Medicine Assmt/Plan - Assessment Assessment: 1.ANEMIA 2.DJD. 3.LEFT EXTERNAL EAR SKIN LESION. 4.DEMENTIA. - Plan Plan: CONTINUE ON CURRENT MEDICATION AND DIET. Nutritional Asmnt/Malnutr-PDOC - Dietary Evaluation Malnutrition Findings (Please click <Entered> for more info): Nutritional Asmnt/Malnutrition Start: 06/14/17 09: 57 Text: Status: Complete Freq: Document 06/14/17 09:57 GILLESKATERIN (Rec: 06/14/17 10:01 LCKATERIN [id number]) Nutritional Asmnt/Malnutrition Patient General Information Nutritional Screening Moderate Risk Diagnosis psychosis Pertinent Medical Hx/Surgical Hx DJD, chronic anemia, skin lesion, agitation Subjective Information Per EMR, PO intake 50-100%, avg 75%. Per nurse note, pt only oriented to self. Current Diet Order/ Nutrition Support [facility] soft chopped Pertinent Medications theragran Pertinent Labs 06/08 Na 139, K 3.9, Cl 107, BUN 28, Cr 1.6, Glucose 129, A1c 4.8, Alb 3.6 Nutritional Hx/Data Height 1.78 m Height (Calculated Centimeters) 177.8 Current Weight (lbs) 68.039 kg Weight (Calculated Kilograms) 68.0 Weight (Calculated Grams) 76152.9 [place] Body Weight 166 Body Mass Index (BMI) 21.5 Weight Status Approriate GI Symptoms GI Symptoms None Last BM 06/12 x 2 Difficult in: None Skin Integrity/Comment: laceration to left ear Estimated Nutritional Goals BEE in Kcals: Using Current wt Calories/Kcals/Kg 25-30 Kcals Calculated 7814-6866 Protein: Using Current wt Protein g/k Protein Calculated 75 Fluid: ml 1875-2250ml(1ml/kcal) Nutritional Problem No current Nutrition Prob Problem N/A Intervention/Recommendation Comments 1. Continue with [facility] soft chopped diet as ordered. 2. Monitor PO intake, wt, labs and skin integrity 3. F/U as low risk in 7 days, 06/21 Expected Outcomes/Goals Expected Outcomes/Goals 1. PO intake to meet at least 75% of nutritional needs. 2. Wt stability, skin to remain intact, labs to approach WNL.
--- NOTE | 2017-06-14 21:17 | Progress Notes ---
DATE: 06/14/2017 The patient is currently in the hospital, had been unruly, not safe for a lower level of care, admitted on , agitated, hostile behaviors, unruly. On [id number], the patient remains calm, isolative, still highly impulsive; however still at times refusing interview. Dr. Schneider saw the patient over the weekend, noted he remained disorganized, talking to self, mumbling to self. MEDICATIONS: Reviewed. ASSESSMENT: The patient remains symptomatic, still agitated, impulsive, however he does seem somewhat calmer versus his admission. We will continue to monitor. JOB# [id number]
[2017-06-15] MEDS: Multivitamin Tab PO SCH (10:02)
--- NOTE | 2017-06-15 17:07 | Progress Notes ---
DATE: 06/15/2017 SUBJECTIVE: The patient is currently in the hospital, still agitated, unruly, yelling, screaming, demanding coffee, highly impulsive, unpredictable, not answering most questions, mumbling to self, very hard to understand. He remained somewhat reclusive and isolated. Dr. Schneider saw the patient over the weekend, noted to remain quite agitated, rambling, circumstantial on psychosis. ASSESSMENT AND PLAN: The patient remains symptomatic, not safe for a lower level of care. Continue Aricept and Namenda. Consider an antipsychotic if his symptoms did not alleviate further. [facility]# [id number]
[2017-06-16] MEDS: Multivitamin Tab PO SCH (09:46)
--- NOTE | 2017-06-16 13:31 | Internal Medicine Prog Note ---
Internal Medicine Subjective - Subjective Service Date: 06/16/17 Patient seen and examined:: without staff Patient is:: awake, in bed, confused Per staff patient has:: no adverse event Internal Medicine Objective - Results Result Diagrams: 06/08/17 09:00 06/08/17 09:00 Recent Labs: Laboratory Last Values WBC 9.2 Th/cmm (4.8-10.8) 06/08/17 09:00 RBC 3.48 Mil/cmm (3.80-5.80) L 06/08/17 09:00 Hgb 10.8 gm/dL (12-16) L 06/08/17 09:00 Hct 31.9 % (41.0-60) L 06/08/17 09:00 MCV 91.5 fl (80-99) 06/08/17 09:00 MCH 30.9 pg (27.0-31.0) 06/08/17 09:00 MCHC Differential 33.8 pg (28.0-36.0) 06/08/17 09:00 RDW 14.4 % (11.5-20.0) 06/08/17 09:00 Plt Count 317 Th/cmm (150-400) 06/08/17 09:00 MPV 6.9 fl 06/08/17 09:00 Neutrophils % 82.4 % (40.0-80.0) H 06/08/17 09:00 Lymphocytes % 9.9 % (20.0-50.0) L 06/08/17 09:00 Monocytes % 6.5 % (2.0-10.0) 06/08/17 09:00 Eosinophils % 0.5 % (0.0-5.0) 06/08/17 09:00 Basophils % 0.7 % (0.0-2.0) 06/08/17 09:00 Sodium 139 mEq/L (136-145) 06/08/17 09:00 Potassium 3.9 mEq/L (3.5-5.1) 06/08/17 09:00 Chloride 107 mEq/L (98-107) 06/08/17 09:00 Carbon Dioxide 28.5 mEq/L (21.0-31.0) 06/08/17 09:00 Anion Gap 7.4 (7.0-16.0) 06/08/17 09:00 BUN 28 mg/dL (7-25) H 06/08/17 09:00 Creatinine 1.6 mg/dL (0.7-1.3) H 06/08/17 09:00 Est GFR ( Amer) TNP 06/08/17 09:00 Est GFR (Non-Af Amer) TNP 06/08/17 09:00 BUN/Creatinine Ratio 17.5 06/08/17 09:00 Glucose 129 mg/dL (70-105) H 06/08/17 09:00 Hemoglobin A1c % 4.8 % (4.0-6.0) 06/08/17 09:00 Calcium 10.1 mg/dL (8.6-10.3) 06/08/17 09:00 Total Bilirubin 0.5 mg/dL (0.3-1.0) 06/08/17 09:00 AST 16 U/L (13-39) 06/08/17 09:00 ALT 13 U/L (7-52) 06/08/17 09:00 Alkaline Phosphatase 180 U/L (34-104) H 06/08/17 09:00 Total Protein 7.2 gm/dL (6.0-8.3) 06/08/17 09:00 Albumin 3.6 gm/dL (4.2-5.5) L 06/08/17 09:00 Globulin 3.6 gm/dL 06/08/17 09:00 Albumin/Globulin Ratio 1.0 (1.0-1.8) 06/08/17 09:00 Triglycerides 118 mg/dL (<150) 06/08/17 09:00 Cholesterol 189 mg/dL (<200) 06/08/17 09:00 LDL Cholesterol Direct 137 mg/dL (75-193) 06/08/17 09:00 HDL Cholesterol 43 mg/dL (23-92) 06/08/17 09:00 TSH 3.25 uIU/ml (0.34-5.60) 06/08/17 09:00 Urine Source CLEAN C 06/08/17 07:45 Urine Color YELLOW 06/08/17 07:45 Urine Clarity CLEAR (CLEAR) 06/08/17 07:45 Urine pH 6.0 (4.6 - 8.0) 06/08/17 07:45 Ur Specific [place] 1.020 (1.005-1.030) 06/08/17 07:45 Urine Protein NEGATIVE mg/dL (NEGATIVE) 06/08/17 07:45 Urine Glucose (UA) NEGATIVE mg/dL (NEGATIVE) 06/08/17 07:45 Urine Ketones NEGATIVE mg/dL (NEGATIVE) 06/08/17 07:45 Urine Blood NEGATIVE (NEGATIVE) 06/08/17 07:45 Urine Nitrate NEGATIVE (NEGATIVE) 06/08/17 07:45 Urine Bilirubin NEGATIVE (NEGATIVE) 06/08/17 07:45 Urine Urobilinogen 0.2 E.U./dL (0.2 - 1.0) 06/08/17 07:45 Ur Leukocyte Esterase NEGATIVE (NEGATIVE) 06/08/17 07:45 Urine RBC 0-2 /hpf (0-5) H 06/08/17 07:45 Urine WBC 0-2 /hpf (0-5) 06/08/17 07:45 Ur Epithelial Cells RARE /lpf (FEW) 06/08/17 07:45 Urine Bacteria NONE SEEN /hpf (NONE SEEN) 06/08/17 07:45 Salicylates < 25.0 mg/L (30.0-100.0) L 06/08/17 09:00 Urine Opiates Screen POSITIVE (NEGATIVE) H 06/08/17 07:45 Urine Methadone Screen NEGATIVE (NEGATIVE) 06/08/17 07:45 Acetaminophen < 10.0 ug/mL (10.0-30.0) L 06/08/17 09:00 Ur Barbiturates Screen NEGATIVE (NEGATIVE) 06/08/17 07:45 Ur Tricyclics Screen NEGATIVE (NEGATIVE) 06/08/17 07:45 Ur Phencyclidine Scrn NEGATIVE (NEGATIVE) 06/08/17 07:45 Amphetamines Screen NEGATIVE (NEGATIVE) 06/08/17 07:45 U Methamphetamines Scrn NEGATIVE (NEGATIVE) 06/08/17 07:45 U Benzodiazepines Scrn NEGATIVE (NEGATIVE) 06/08/17 07:45 U Cocaine Metab Screen NEGATIVE (NEGATIVE) 06/08/17 07:45 U Cannabinoids Screen NEGATIVE (NEGATIVE) 06/08/17 07:45 Ethyl Alcohol < 10 mg/dL (0-10) 06/08/17 09:00 RPR NONREACTIVE (NONREACTIVE) 06/08/17 09:00 - Physical Exam Vitals and I&O: Vital Signs Temp 97.9 F 06/16/17 06:26 Pulse 56 06/16/17 06:26 Resp 19 06/16/17 06:26 BP 135/50 06/16/17 06:26 Pulse Ox 96 06/16/17 06:26 Intake & Output 06/15/17 06/16/17 06/16/17 18:59 06:59 18:59 Intake Total 1200 360 Balance 1200 360 Intake: Oral 1200 360 Other: # Voids 3 1 # Bowel Movements 1 1 Active Medications: Current Medications Acetaminophen (Tylenol) 650 mg PO Q4HR PRN PRN Reason: Mild Pain / Temp above 100 Stop: 08/07/17 13:09 Al Hydrox/Mg Hydrox/Simethicone (Maalox) 30 ml PO Q4HR PRN PRN Reason: GI DISTRESS Stop: 08/07/17 13:09 Donepezil HCl (Aricept) 5 mg PO HS CARMINE Stop: 08/08/17 20:59 Last Admin: 06/15/17 20:52 Dose: 5 mg Lorazepam (Ativan) 0.5 mg PO Q6HR PRN PRN Reason: Agitation Stop: 08/13/17 16:06 Magnesium Hydroxide (Milk Of Magnesia) 30 ml PO HS PRN PRN Reason: Constipation Memantine (Namenda) 5 mg PO DAILY CARMINE Stop: 08/09/17 08:59 Last Admin: 06/16/17 09:46 Dose: Not Given Multivitamins/Vitamin C (Theragran) 1 tab PO DAILY CARMINE Stop: 08/08/17 08:59 Last Admin: 06/16/17 09:46 Dose: Not Given Zolpidem Tartrate (Ambien) 5 mg PO HS PRN PRN Reason: Insomnia Stop: 08/07/17 13:09 Last Admin: 06/15/17 20:52 Dose: 5 mg General: demented HEENT: NC/AT, PERRLA, EOMI, anicteric sclerae, throat clear Neck: Supple, No JVD, No thyromegaly Lungs: CTAB Abdomen: soft, non-tender, non-distended Extremities: clear Neurological: no change Internal Medicine Assmt/Plan - Assessment Assessment: 1.ANEMIA 2.DJD. 3.LEFT EXTERNAL EAR SKIN LESION. 4.DEMENTIA. - Plan Plan: CONTINUE ON CURRENT MEDICATION AND DIET. Nutritional Asmnt/Malnutr-PDOC - Dietary Evaluation Malnutrition Findings (Please click <Entered> for more info): Nutritional Asmnt/Malnutrition Start: 06/14/17 09: 57 Text: Status: Complete Freq: Document 06/14/17 09:57 QUINTON (Rec: 06/14/17 10:01 [email or web address]) Nutritional Asmnt/Malnutrition Patient General Information Nutritional Screening Moderate Risk Diagnosis psychosis Pertinent Medical Hx/Surgical Hx DJD, chronic anemia, skin lesion, agitation Subjective Information Per EMR, PO intake 50-100%, avg 75%. Per nurse note, pt only oriented to self. Current Diet Order/ Nutrition Support [facility] soft chopped Pertinent Medications theragran Pertinent Labs 06/08 Na 139, K 3.9, Cl 107, BUN 28, Cr 1.6, Glucose 129, A1c 4.8, Alb 3.6 Nutritional Hx/Data Height 1.78 m Height (Calculated Centimeters) 177.8 Current Weight (lbs) 68.039 kg Weight (Calculated Kilograms) 68.0 Weight (Calculated Grams) 82789.9 [place] Body Weight 166 Body Mass Index (BMI) 21.5 Weight Status Approriate GI Symptoms GI Symptoms None Last BM 06/12 x 2 Difficult in: None Skin Integrity/Comment: laceration to left ear Estimated Nutritional Goals BEE in Kcals: Using Current wt Calories/Kcals/Kg 25-30 Kcals Calculated 4616-6885 Protein: Using Current wt Protein g/k Protein Calculated 75 Fluid: ml 1875-2250ml(1ml/kcal) Nutritional Problem No current Nutrition Prob Problem N/A Intervention/Recommendation Comments 1. Continue with [facility] soft chopped diet as ordered. 2. Monitor PO intake, wt, labs and skin integrity 3. F/U as low risk in 7 days, 06/21 Expected Outcomes/Goals Expected Outcomes/Goals 1. PO intake to meet at least 75% of nutritional needs. 2. Wt stability, skin to remain intact, labs to approach WNL.
--- NOTE | 2017-06-16 17:09 | Progress Notes ---
DATE: 06/16/2017 The patient states he feels "good," still in a [place] chair, unruly, impulsive, unpredictable, rambling speech and unable to understand them, circumstantial seems to be with ongoing psychosis, talking to self. He is more sociable and engaged, no combative behaviors. ASSESSMENT: The patient remains symptomatic, not safe for a lower level of care. The patient does seem to be improving. We will continue to monitor and follow up. [facility]# [id number]
[2017-06-17] MEDS: Multivitamin Tab PO SCH (08:24)
--- NOTE | 2017-06-17 15:03 | Internal Medicine Prog Note ---
Internal Medicine Subjective - Subjective Service Date: 06/17/17 Patient seen and examined:: with staff Patient is:: awake, in bed, confused Per staff patient has:: no adverse event Internal Medicine Objective - Results Result Diagrams: 06/08/17 09:00 06/08/17 09:00 Recent Labs: Laboratory Last Values WBC 9.2 Th/cmm (4.8-10.8) 06/08/17 09:00 RBC 3.48 Mil/cmm (3.80-5.80) L 06/08/17 09:00 Hgb 10.8 gm/dL (12-16) L 06/08/17 09:00 Hct 31.9 % (41.0-60) L 06/08/17 09:00 MCV 91.5 fl (80-99) 06/08/17 09:00 MCH 30.9 pg (27.0-31.0) 06/08/17 09:00 MCHC Differential 33.8 pg (28.0-36.0) 06/08/17 09:00 RDW 14.4 % (11.5-20.0) 06/08/17 09:00 Plt Count 317 Th/cmm (150-400) 06/08/17 09:00 MPV 6.9 fl 06/08/17 09:00 Neutrophils % 82.4 % (40.0-80.0) H 06/08/17 09:00 Lymphocytes % 9.9 % (20.0-50.0) L 06/08/17 09:00 Monocytes % 6.5 % (2.0-10.0) 06/08/17 09:00 Eosinophils % 0.5 % (0.0-5.0) 06/08/17 09:00 Basophils % 0.7 % (0.0-2.0) 06/08/17 09:00 Sodium 139 mEq/L (136-145) 06/08/17 09:00 Potassium 3.9 mEq/L (3.5-5.1) 06/08/17 09:00 Chloride 107 mEq/L (98-107) 06/08/17 09:00 Carbon Dioxide 28.5 mEq/L (21.0-31.0) 06/08/17 09:00 Anion Gap 7.4 (7.0-16.0) 06/08/17 09:00 BUN 28 mg/dL (7-25) H 06/08/17 09:00 Creatinine 1.6 mg/dL (0.7-1.3) H 06/08/17 09:00 Est GFR ( Amer) TNP 06/08/17 09:00 Est GFR (Non-Af Amer) TNP 06/08/17 09:00 BUN/Creatinine Ratio 17.5 06/08/17 09:00 Glucose 129 mg/dL (70-105) H 06/08/17 09:00 Hemoglobin A1c % 4.8 % (4.0-6.0) 06/08/17 09:00 Calcium 10.1 mg/dL (8.6-10.3) 06/08/17 09:00 Total Bilirubin 0.5 mg/dL (0.3-1.0) 06/08/17 09:00 AST 16 U/L (13-39) 06/08/17 09:00 ALT 13 U/L (7-52) 06/08/17 09:00 Alkaline Phosphatase 180 U/L (34-104) H 06/08/17 09:00 Total Protein 7.2 gm/dL (6.0-8.3) 06/08/17 09:00 Albumin 3.6 gm/dL (4.2-5.5) L 06/08/17 09:00 Globulin 3.6 gm/dL 06/08/17 09:00 Albumin/Globulin Ratio 1.0 (1.0-1.8) 06/08/17 09:00 Triglycerides 118 mg/dL (<150) 06/08/17 09:00 Cholesterol 189 mg/dL (<200) 06/08/17 09:00 LDL Cholesterol Direct 137 mg/dL (75-193) 06/08/17 09:00 HDL Cholesterol 43 mg/dL (23-92) 06/08/17 09:00 TSH 3.25 uIU/ml (0.34-5.60) 06/08/17 09:00 Urine Source CLEAN C 06/08/17 07:45 Urine Color YELLOW 06/08/17 07:45 Urine Clarity CLEAR (CLEAR) 06/08/17 07:45 Urine pH 6.0 (4.6 - 8.0) 06/08/17 07:45 Ur Specific [place] 1.020 (1.005-1.030) 06/08/17 07:45 Urine Protein NEGATIVE mg/dL (NEGATIVE) 06/08/17 07:45 Urine Glucose (UA) NEGATIVE mg/dL (NEGATIVE) 06/08/17 07:45 Urine Ketones NEGATIVE mg/dL (NEGATIVE) 06/08/17 07:45 Urine Blood NEGATIVE (NEGATIVE) 06/08/17 07:45 Urine Nitrate NEGATIVE (NEGATIVE) 06/08/17 07:45 Urine Bilirubin NEGATIVE (NEGATIVE) 06/08/17 07:45 Urine Urobilinogen 0.2 E.U./dL (0.2 - 1.0) 06/08/17 07:45 Ur Leukocyte Esterase NEGATIVE (NEGATIVE) 06/08/17 07:45 Urine RBC 0-2 /hpf (0-5) H 06/08/17 07:45 Urine WBC 0-2 /hpf (0-5) 06/08/17 07:45 Ur Epithelial Cells RARE /lpf (FEW) 06/08/17 07:45 Urine Bacteria NONE SEEN /hpf (NONE SEEN) 06/08/17 07:45 Salicylates < 25.0 mg/L (30.0-100.0) L 06/08/17 09:00 Urine Opiates Screen POSITIVE (NEGATIVE) H 06/08/17 07:45 Urine Methadone Screen NEGATIVE (NEGATIVE) 06/08/17 07:45 Acetaminophen < 10.0 ug/mL (10.0-30.0) L 06/08/17 09:00 Ur Barbiturates Screen NEGATIVE (NEGATIVE) 06/08/17 07:45 Ur Tricyclics Screen NEGATIVE (NEGATIVE) 06/08/17 07:45 Ur Phencyclidine Scrn NEGATIVE (NEGATIVE) 06/08/17 07:45 Amphetamines Screen NEGATIVE (NEGATIVE) 06/08/17 07:45 U Methamphetamines Scrn NEGATIVE (NEGATIVE) 06/08/17 07:45 U Benzodiazepines Scrn NEGATIVE (NEGATIVE) 06/08/17 07:45 U Cocaine Metab Screen NEGATIVE (NEGATIVE) 06/08/17 07:45 U Cannabinoids Screen NEGATIVE (NEGATIVE) 06/08/17 07:45 Ethyl Alcohol < 10 mg/dL (0-10) 06/08/17 09:00 RPR NONREACTIVE (NONREACTIVE) 06/08/17 09:00 - Physical Exam Vitals and I&O: Vital Signs Temp 97.3 F 06/17/17 06:40 Pulse 70 06/17/17 06:40 Resp 18 06/17/17 06:40 BP 119/66 06/17/17 06:40 Pulse Ox 98 06/17/17 06:40 Intake & Output 06/16/17 06/17/17 06/17/17 18:59 06:59 18:59 Intake Total 1200 120 Balance 1200 120 Intake: Oral 1200 120 Other: # Voids 3 3 # Bowel Movements 1 1 Stool Characteristics Formed Active Medications: Current Medications Acetaminophen (Tylenol) 650 mg PO Q4HR PRN PRN Reason: Mild Pain / Temp above 100 Stop: 08/07/17 13:09 Al Hydrox/Mg Hydrox/Simethicone (Maalox) 30 ml PO Q4HR PRN PRN Reason: GI DISTRESS Stop: 08/07/17 13:09 Donepezil HCl (Aricept) 5 mg PO HS CARMINE Stop: 08/08/17 20:59 Last Admin: 06/16/17 20:45 Dose: 5 mg Lorazepam (Ativan) 0.5 mg PO Q6HR PRN PRN Reason: Agitation Stop: 08/13/17 16:06 Magnesium Hydroxide (Milk Of Magnesia) 30 ml PO HS PRN PRN Reason: Constipation Memantine (Namenda) 5 mg PO DAILY CARMINE Stop: 08/09/17 08:59 Last Admin: 06/17/17 08:24 Dose: 5 mg Multivitamins/Vitamin C (Theragran) 1 tab PO DAILY CARMINE Stop: 08/08/17 08:59 Last Admin: 06/17/17 08:24 Dose: 1 tab Zolpidem Tartrate (Ambien) 5 mg PO HS PRN PRN Reason: Insomnia Stop: 08/07/17 13:09 Last Admin: 06/15/17 20:52 Dose: 5 mg General: demented HEENT: NC/AT, PERRLA, EOMI, anicteric sclerae, throat clear Neck: Supple, No JVD, No thyromegaly Lungs: CTAB Abdomen: soft, non-tender, non-distended Extremities: clear Neurological: no change Internal Medicine Assmt/Plan - Assessment Assessment: 1.ANEMIA 2.DJD. 3.LEFT EXTERNAL EAR SKIN LESION. 4.DEMENTIA. - Plan Plan: CONTINUE ON CURRENT MEDICATION AND DIET. Nutritional Asmnt/Malnutr-PDOC - Dietary Evaluation Malnutrition Findings (Please click <Entered> for more info): Nutritional Asmnt/Malnutrition Start: 06/14/17 09: 57 Text: Status: Complete Freq: Document 06/14/17 09:57 GILLESKATERIN (Rec: 06/14/17 10:01 GILLESKATERIN [email or web address]) Nutritional Asmnt/Malnutrition Patient General Information Nutritional Screening Moderate Risk Diagnosis psychosis Pertinent Medical Hx/Surgical Hx DJD, chronic anemia, skin lesion, agitation Subjective Information Per EMR, PO intake 50-100%, avg 75%. Per nurse note, pt only oriented to self. Current Diet Order/ Nutrition Support [facility] soft chopped Pertinent Medications theragran Pertinent Labs 06/08 Na 139, K 3.9, Cl 107, BUN 28, Cr 1.6, Glucose 129, A1c 4.8, Alb 3.6 Nutritional Hx/Data Height 1.78 m Height (Calculated Centimeters) 177.8 Current Weight (lbs) 68.039 kg Weight (Calculated Kilograms) 68.0 Weight (Calculated Grams) 70467.9 [place] Body Weight 166 Body Mass Index (BMI) 21.5 Weight Status Approriate GI Symptoms GI Symptoms None Last BM 06/12 x 2 Difficult in: None Skin Integrity/Comment: laceration to left ear Estimated Nutritional Goals BEE in Kcals: Using Current wt Calories/Kcals/Kg 25-30 Kcals Calculated 5522-3347 Protein: Using Current wt Protein g/k Protein Calculated 75 Fluid: ml 1875-2250ml(1ml/kcal) Nutritional Problem No current Nutrition Prob Problem N/A Intervention/Recommendation Comments 1. Continue with [facility] soft chopped diet as ordered. 2. Monitor PO intake, wt, labs and skin integrity 3. F/U as low risk in 7 days, 06/21 Expected Outcomes/Goals Expected Outcomes/Goals 1. PO intake to meet at least 75% of nutritional needs. 2. Wt stability, skin to remain intact, labs to approach WNL.
--- NOTE | 2017-06-17 17:33 | Progress Notes ---
DATE: 06/17/2017 The patient notes that he feels "okay." He keeps repeating "I want to go to bed," "I want to go to bed," "I want to go to bed," still talking to himself, highly impulsive and unpredictable and in a [place] chair, however he is not combative, overall calmer. ASSESSMENT: The patient is symptomatic, confused, disoriented, ruminative. PLAN: We will continue to monitor. Given his ongoing symptoms, he is not safe for discharge, still concerns for his safety. JOB# [id number]
[2017-06-18] MEDS: Multivitamin Tab PO SCH ×2 (09:08→09:11)
--- NOTE | 2017-06-18 23:13 | Internal Medicine Prog Note ---
Internal Medicine Subjective - Subjective Service Date: 06/18/17 Patient seen and examined:: with staff (HE IS STILL CONFUSSED AND AGITATED) Patient is:: awake, in bed, confused Per staff patient has:: no adverse event Internal Medicine Objective - Results Result Diagrams: 06/08/17 09:00 06/08/17 09:00 Recent Labs: Laboratory Last Values WBC 9.2 Th/cmm (4.8-10.8) 06/08/17 09:00 RBC 3.48 Mil/cmm (3.80-5.80) L 06/08/17 09:00 Hgb 10.8 gm/dL (12-16) L 06/08/17 09:00 Hct 31.9 % (41.0-60) L 06/08/17 09:00 MCV 91.5 fl (80-99) 06/08/17 09:00 MCH 30.9 pg (27.0-31.0) 06/08/17 09:00 MCHC Differential 33.8 pg (28.0-36.0) 06/08/17 09:00 RDW 14.4 % (11.5-20.0) 06/08/17 09:00 Plt Count 317 Th/cmm (150-400) 06/08/17 09:00 MPV 6.9 fl 06/08/17 09:00 Neutrophils % 82.4 % (40.0-80.0) H 06/08/17 09:00 Lymphocytes % 9.9 % (20.0-50.0) L 06/08/17 09:00 Monocytes % 6.5 % (2.0-10.0) 06/08/17 09:00 Eosinophils % 0.5 % (0.0-5.0) 06/08/17 09:00 Basophils % 0.7 % (0.0-2.0) 06/08/17 09:00 Sodium 139 mEq/L (136-145) 06/08/17 09:00 Potassium 3.9 mEq/L (3.5-5.1) 06/08/17 09:00 Chloride 107 mEq/L (98-107) 06/08/17 09:00 Carbon Dioxide 28.5 mEq/L (21.0-31.0) 06/08/17 09:00 Anion Gap 7.4 (7.0-16.0) 06/08/17 09:00 BUN 28 mg/dL (7-25) H 06/08/17 09:00 Creatinine 1.6 mg/dL (0.7-1.3) H 06/08/17 09:00 Est GFR ( Amer) TNP 06/08/17 09:00 Est GFR (Non-Af Amer) TNP 06/08/17 09:00 BUN/Creatinine Ratio 17.5 06/08/17 09:00 Glucose 129 mg/dL (70-105) H 06/08/17 09:00 Hemoglobin A1c % 4.8 % (4.0-6.0) 06/08/17 09:00 Calcium 10.1 mg/dL (8.6-10.3) 06/08/17 09:00 Total Bilirubin 0.5 mg/dL (0.3-1.0) 06/08/17 09:00 AST 16 U/L (13-39) 06/08/17 09:00 ALT 13 U/L (7-52) 06/08/17 09:00 Alkaline Phosphatase 180 U/L (34-104) H 06/08/17 09:00 Total Protein 7.2 gm/dL (6.0-8.3) 06/08/17 09:00 Albumin 3.6 gm/dL (4.2-5.5) L 06/08/17 09:00 Globulin 3.6 gm/dL 06/08/17 09:00 Albumin/Globulin Ratio 1.0 (1.0-1.8) 06/08/17 09:00 Triglycerides 118 mg/dL (<150) 06/08/17 09:00 Cholesterol 189 mg/dL (<200) 06/08/17 09:00 LDL Cholesterol Direct 137 mg/dL (75-193) 06/08/17 09:00 HDL Cholesterol 43 mg/dL (23-92) 06/08/17 09:00 TSH 3.25 uIU/ml (0.34-5.60) 06/08/17 09:00 Urine Source CLEAN C 06/08/17 07:45 Urine Color YELLOW 06/08/17 07:45 Urine Clarity CLEAR (CLEAR) 06/08/17 07:45 Urine pH 6.0 (4.6 - 8.0) 06/08/17 07:45 Ur Specific [place] 1.020 (1.005-1.030) 06/08/17 07:45 Urine Protein NEGATIVE mg/dL (NEGATIVE) 06/08/17 07:45 Urine Glucose (UA) NEGATIVE mg/dL (NEGATIVE) 06/08/17 07:45 Urine Ketones NEGATIVE mg/dL (NEGATIVE) 06/08/17 07:45 Urine Blood NEGATIVE (NEGATIVE) 06/08/17 07:45 Urine Nitrate NEGATIVE (NEGATIVE) 06/08/17 07:45 Urine Bilirubin NEGATIVE (NEGATIVE) 06/08/17 07:45 Urine Urobilinogen 0.2 E.U./dL (0.2 - 1.0) 06/08/17 07:45 Ur Leukocyte Esterase NEGATIVE (NEGATIVE) 06/08/17 07:45 Urine RBC 0-2 /hpf (0-5) H 06/08/17 07:45 Urine WBC 0-2 /hpf (0-5) 06/08/17 07:45 Ur Epithelial Cells RARE /lpf (FEW) 06/08/17 07:45 Urine Bacteria NONE SEEN /hpf (NONE SEEN) 06/08/17 07:45 Salicylates < 25.0 mg/L (30.0-100.0) L 06/08/17 09:00 Urine Opiates Screen POSITIVE (NEGATIVE) H 06/08/17 07:45 Urine Methadone Screen NEGATIVE (NEGATIVE) 06/08/17 07:45 Acetaminophen < 10.0 ug/mL (10.0-30.0) L 06/08/17 09:00 Ur Barbiturates Screen NEGATIVE (NEGATIVE) 06/08/17 07:45 Ur Tricyclics Screen NEGATIVE (NEGATIVE) 06/08/17 07:45 Ur Phencyclidine Scrn NEGATIVE (NEGATIVE) 06/08/17 07:45 Amphetamines Screen NEGATIVE (NEGATIVE) 06/08/17 07:45 U Methamphetamines Scrn NEGATIVE (NEGATIVE) 06/08/17 07:45 U Benzodiazepines Scrn NEGATIVE (NEGATIVE) 06/08/17 07:45 U Cocaine Metab Screen NEGATIVE (NEGATIVE) 06/08/17 07:45 U Cannabinoids Screen NEGATIVE (NEGATIVE) 06/08/17 07:45 Ethyl Alcohol < 10 mg/dL (0-10) 06/08/17 09:00 RPR NONREACTIVE (NONREACTIVE) 06/08/17 09:00 - Physical Exam Vitals and I&O: Vital Signs Temp 97.8 F 06/18/17 15:14 Pulse 68 06/18/17 15:14 Resp 18 06/18/17 19:36 BP 136/63 06/18/17 15:14 Pulse Ox 97 06/18/17 15:14 Intake & Output 06/18/17 06/18/17 06/19/17 06:59 18:59 06:59 Intake Total 120 1200 Balance 120 1200 Intake: Oral 120 1200 Other: # Voids 3 3 # Bowel Movements 1 1 Stool Characteristics Soft Soft Soft Formed Formed Formed Active Medications: Current Medications Acetaminophen (Tylenol) 650 mg PO Q4HR PRN PRN Reason: Mild Pain / Temp above 100 Stop: 08/07/17 13:09 Al Hydrox/Mg Hydrox/Simethicone (Maalox) 30 ml PO Q4HR PRN PRN Reason: GI DISTRESS Stop: 08/07/17 13:09 Donepezil HCl (Aricept) 5 mg PO HS CARMINE Stop: 08/08/17 20:59 Last Admin: 06/18/17 21:10 Dose: 5 mg Lorazepam (Ativan) 0.5 mg PO Q6HR PRN PRN Reason: Agitation Stop: 08/13/17 16:06 Magnesium Hydroxide (Milk Of Magnesia) 30 ml PO HS PRN PRN Reason: Constipation Memantine (Namenda) 5 mg PO DAILY PENDING SALE TO [facility] Stop: 08/09/17 08:59 Last Admin: 06/18/17 09:11 Dose: Not Given Multivitamins/Vitamin C (Theragran) 1 tab PO DAILY PENDING S[facility] TO [facility] Stop: 08/08/17 08:59 Last Admin: 06/18/17 09:11 Dose: Not Given Zolpidem Tartrate (Ambien) 5 mg PO HS PRN PRN Reason: Insomnia Stop: 08/07/17 13:09 Last Admin: 06/15/17 20:52 Dose: 5 mg General: demented HEENT: NC/AT, PERRLA, EOMI, anicteric sclerae, throat clear Neck: Supple, No JVD, No thyromegaly Lungs: CTAB Abdomen: soft, non-tender, non-distended Extremities: clear Neurological: no change Internal Medicine Assmt/Plan - Assessment Assessment: 1.ANEMIA 2.DJD. 3.LEFT EXTERNAL EAR SKIN LESION. 4.DEMENTIA. - Plan Plan: CONTINUE ON CURRENT MEDICATION AND DIET. Nutritional Asmnt/Malnutr-PDOC - Dietary Evaluation Malnutrition Findings (Please click <Entered> for more info): Nutritional Asmnt/Malnutrition Start: 06/14/17 09: 57 Text: Status: Complete Freq: Document 06/14/17 09:57 QUINTON (Rec: 06/14/17 10:01 QUINTON [email or web address]) Nutritional Asmnt/Malnutrition Patient General Information Nutritional Screening Moderate Risk Diagnosis psychosis Pertinent Medical Hx/Surgical Hx DJD, chronic anemia, skin lesion, agitation Subjective Information Per EMR, PO intake 50-100%, avg 75%. Per nurse note, pt only oriented to self. Current Diet Order/ Nutrition Support [facility] chopped Pertinent Medications theragran Pertinent Labs 06/08 Na 139, K 3.9, Cl 107, BUN 28, Cr 1.6, Glucose 129, A1c 4.8, Alb 3.6 Nutritional Hx/Data Height 1.78 m Height (Calculated Centimeters) 177.8 Current Weight (lbs) 68.039 kg Weight (Calculated Kilograms) 68.0 Weight (Calculated Grams) 95835.9 [place] Body Weight 166 Body Mass Index (BMI) 21.5 Weight Status Approriate GI Symptoms GI Symptoms None Last BM 06/12 x 2 Difficult in: None Skin Integrity/Comment: laceration to left ear Estimated Nutritional Goals BEE in Kcals: Using Current wt Calories/Kcals/Kg 25-30 Kcals Calculated 3445-1620 Protein: Using Current wt Protein g/k Protein Calculated 75 Fluid: ml 1875-2250ml(1ml/kcal) Nutritional Problem No current Nutrition Prob Problem N/A Intervention/Recommendation Comments 1. Continue with [facility] soft chopped diet as ordered. 2. Monitor PO intake, wt, labs and skin integrity 3. F/U as low risk in 7 days, 06/21 Expected Outcomes/Goals Expected Outcomes/Goals 1. PO intake to meet at least 75% of nutritional needs. 2. Wt stability, skin to remain intact, labs to approach WNL.
--- NOTE | 2017-06-19 06:54 | Progress Notes ---
DATE: 06/19/2017 SUBJECTIVE: The patient yelling, screaming "get out, get out, get out," very impulsive, unpredictable behaviors, unruly. It was originally suspected that the patient may have dementia. It is unclear if he has dementia, but he seems to certainly have a diagnosis of developmental disability. The patient is requiring a lot of prompting, a lot of redirection, currently gravely disabled. ASSESSMENT: The patient remains symptomatic, not safe for a lower level of care at this time, still unruly, acting out behaviors. PLAN: We will continue to monitor given ongoing symptoms. The patient is not safe for discharge at this time. JOB# [id number]
[2017-06-19] MEDS: Multivitamin Tab PO SCH ×2 (08:02→08:06)
--- NOTE | 2017-06-19 15:21 | General Progress Note ---
Subjective - Review of Systems Service Date: 06/19/17 Subjective: resting comfortably in chair no distress Objective - Results Result Diagrams: 06/08/17 09:00 06/08/17 09:00 Recent Labs: Laboratory Last Values WBC 9.2 Th/cmm (4.8-10.8) 06/08/17 09:00 RBC 3.48 Mil/cmm (3.80-5.80) L 06/08/17 09:00 Hgb 10.8 gm/dL (12-16) L 06/08/17 09:00 Hct 31.9 % (41.0-60) L 06/08/17 09:00 MCV 91.5 fl (80-99) 06/08/17 09:00 MCH 30.9 pg (27.0-31.0) 06/08/17 09:00 MCHC Differential 33.8 pg (28.0-36.0) 06/08/17 09:00 RDW 14.4 % (11.5-20.0) 06/08/17 09:00 Plt Count 317 Th/cmm (150-400) 06/08/17 09:00 MPV 6.9 fl 06/08/17 09:00 Neutrophils % 82.4 % (40.0-80.0) H 06/08/17 09:00 Lymphocytes % 9.9 % (20.0-50.0) L 06/08/17 09:00 Monocytes % 6.5 % (2.0-10.0) 06/08/17 09:00 Eosinophils % 0.5 % (0.0-5.0) 06/08/17 09:00 Basophils % 0.7 % (0.0-2.0) 06/08/17 09:00 Sodium 139 mEq/L (136-145) 06/08/17 09:00 Potassium 3.9 mEq/L (3.5-5.1) 06/08/17 09:00 Chloride 107 mEq/L (98-107) 06/08/17 09:00 Carbon Dioxide 28.5 mEq/L (21.0-31.0) 06/08/17 09:00 Anion Gap 7.4 (7.0-16.0) 06/08/17 09:00 BUN 28 mg/dL (7-25) H 06/08/17 09:00 Creatinine 1.6 mg/dL (0.7-1.3) H 06/08/17 09:00 Est GFR ( Amer) TNP 06/08/17 09:00 Est GFR (Non-Af Amer) TNP 06/08/17 09:00 BUN/Creatinine Ratio 17.5 06/08/17 09:00 Glucose 129 mg/dL (70-105) H 06/08/17 09:00 Hemoglobin A1c % 4.8 % (4.0-6.0) 06/08/17 09:00 Calcium 10.1 mg/dL (8.6-10.3) 06/08/17 09:00 Total Bilirubin 0.5 mg/dL (0.3-1.0) 06/08/17 09:00 AST 16 U/L (13-39) 06/08/17 09:00 ALT 13 U/L (7-52) 06/08/17 09:00 Alkaline Phosphatase 180 U/L (34-104) H 06/08/17 09:00 Total Protein 7.2 gm/dL (6.0-8.3) 06/08/17 09:00 Albumin 3.6 gm/dL (4.2-5.5) L 06/08/17 09:00 Globulin 3.6 gm/dL 06/08/17 09:00 Albumin/Globulin Ratio 1.0 (1.0-1.8) 06/08/17 09:00 Triglycerides 118 mg/dL (<150) 06/08/17 09:00 Cholesterol 189 mg/dL (<200) 06/08/17 09:00 LDL Cholesterol Direct 137 mg/dL (75-193) 06/08/17 09:00 HDL Cholesterol 43 mg/dL (23-92) 06/08/17 09:00 TSH 3.25 uIU/ml (0.34-5.60) 06/08/17 09:00 Urine Source CLEAN C 06/08/17 07:45 Urine Color YELLOW 06/08/17 07:45 Urine Clarity CLEAR (CLEAR) 06/08/17 07:45 Urine pH 6.0 (4.6 - 8.0) 06/08/17 07:45 Ur Specific [place] 1.020 (1.005-1.030) 06/08/17 07:45 Urine Protein NEGATIVE mg/dL (NEGATIVE) 06/08/17 07:45 Urine Glucose (UA) NEGATIVE mg/dL (NEGATIVE) 06/08/17 07:45 Urine Ketones NEGATIVE mg/dL (NEGATIVE) 06/08/17 07:45 Urine Blood NEGATIVE (NEGATIVE) 06/08/17 07:45 Urine Nitrate NEGATIVE (NEGATIVE) 06/08/17 07:45 Urine Bilirubin NEGATIVE (NEGATIVE) 06/08/17 07:45 Urine Urobilinogen 0.2 E.U./dL (0.2 - 1.0) 06/08/17 07:45 Ur Leukocyte Esterase NEGATIVE (NEGATIVE) 06/08/17 07:45 Urine RBC 0-2 /hpf (0-5) H 06/08/17 07:45 Urine WBC 0-2 /hpf (0-5) 06/08/17 07:45 Ur Epithelial Cells RARE /lpf (FEW) 06/08/17 07:45 Urine Bacteria NONE SEEN /hpf (NONE SEEN) 06/08/17 07:45 Salicylates < 25.0 mg/L (30.0-100.0) L 06/08/17 09:00 Urine Opiates Screen POSITIVE (NEGATIVE) H 06/08/17 07:45 Urine Methadone Screen NEGATIVE (NEGATIVE) 06/08/17 07:45 Acetaminophen < 10.0 ug/mL (10.0-30.0) L 06/08/17 09:00 Ur Barbiturates Screen NEGATIVE (NEGATIVE) 06/08/17 07:45 Ur Tricyclics Screen NEGATIVE (NEGATIVE) 06/08/17 07:45 Ur Phencyclidine Scrn NEGATIVE (NEGATIVE) 06/08/17 07:45 Amphetamines Screen NEGATIVE (NEGATIVE) 06/08/17 07:45 U Methamphetamines Scrn NEGATIVE (NEGATIVE) 06/08/17 07:45 U Benzodiazepines Scrn NEGATIVE (NEGATIVE) 06/08/17 07:45 U Cocaine Metab Screen NEGATIVE (NEGATIVE) 06/08/17 07:45 U Cannabinoids Screen NEGATIVE (NEGATIVE) 06/08/17 07:45 Ethyl Alcohol < 10 mg/dL (0-10) 06/08/17 09:00 RPR NONREACTIVE (NONREACTIVE) 06/08/17 09:00 - Physical Exam Vitals and I&O: Vital Signs Temp 97.6 F 06/19/17 15:12 Pulse 93 06/19/17 15:12 Resp 20 06/19/17 15:12 BP 130/65 06/19/17 15:12 Pulse Ox 98 06/19/17 15:12 Intake & Output 06/18/17 06/19/17 06/19/17 18:59 06:59 18:59 Intake Total 1200 Balance 1200 Intake: Oral 1200 Other: # Voids 3 # Bowel Movements 1 Stool Characteristics Soft Soft Soft Formed Formed Formed Active Medications: Current Medications Acetaminophen (Tylenol) 650 mg PO Q4HR PRN PRN Reason: Mild Pain / Temp above 100 Stop: 08/07/17 13:09 Al Hydrox/Mg Hydrox/Simethicone (Maalox) 30 ml PO Q4HR PRN PRN Reason: GI DISTRESS Stop: 08/07/17 13:09 Donepezil HCl (Aricept) 5 mg PO HS CARMINE Stop: 08/08/17 20:59 Last Admin: 06/18/17 21:10 Dose: 5 mg Lorazepam (Ativan) 0.5 mg PO Q6HR PRN PRN Reason: Agitation Stop: 08/13/17 16:06 Magnesium Hydroxide (Milk Of Magnesia) 30 ml PO HS PRN PRN Reason: Constipation Memantine (Namenda) 5 mg PO DAILY [facility] Stop: 08/09/17 08:59 Last Admin: 06/19/17 08:06 Dose: 5 mg Multivitamins/Vitamin C (Theragran) 1 tab PO DAILY [facility] Stop: 08/08/17 08:59 Last Admin: 06/19/17 08:06 Dose: 1 tab Zolpidem Tartrate (Ambien) 5 mg PO HS PRN PRN Reason: Insomnia Stop: 08/07/17 13:09 Last Admin: 06/15/17 20:52 Dose: 5 mg General: Alert, Oriented x3, Cooperative HEENT: Atraumatic, PERRLA, EOMI Neck: Supple, JVD, Thyromegaly Cardiovascular: Regular rate, Normal S1, Normal S2 Lungs: Clear to auscultation Abdomen: Bowel sounds, Soft Assessment/Plan - Assessment Assessment: 1.ANEMIA 2.DJD. 3.LEFT EXTERNAL EAR SKIN LESION. 4.DEMENTIA. - Plan Plan: cont current treatment Nutritional Asmnt/Malnutr-PDOC - Dietary Evaluation Malnutrition Findings (Please click <Entered> for more info): Nutritional Asmnt/Malnutrition Start: 06/14/17 09: 57 Text: Status: Complete Freq: Document 06/14/17 09:57 QUINTON (Rec: 06/14/17 10:01 QUINTON [email or web address]) Nutritional Asmnt/Malnutrition Patient General Information Nutritional Screening Moderate Risk Diagnosis psychosis Pertinent Medical Hx/Surgical Hx DJD, chronic anemia, skin lesion, agitation Subjective Information Per EMR, PO intake 50-100%, avg 75%. Per nurse note, pt only oriented to self. Current Diet Order/ Nutrition Support [facility] soft chopped Pertinent Medications theragran Pertinent Labs 06/08 Na 139, K 3.9, Cl 107, BUN 28, Cr 1.6, Glucose 129, A1c 4.8, Alb 3.6 Nutritional Hx/Data Height 1.78 m Height (Calculated Centimeters) 177.8 Current Weight (lbs) 68.039 kg Weight (Calculated Kilograms) 68.0 Weight (Calculated Grams) 44755.9 [place] Body Weight 166 Body Mass Index (BMI) 21.5 Weight Status Approriate GI Symptoms GI Symptoms None Last BM 06/12 x 2 Difficult in: None Skin Integrity/Comment: laceration to left ear Estimated Nutritional Goals BEE in Kcals: Using Current wt Calories/Kcals/Kg 25-30 Kcals Calculated 4210-5393 Protein: Using Current wt Protein g/k Protein Calculated 75 Fluid: ml 1875-2250ml(1ml/kcal) Nutritional Problem No current Nutrition Prob Problem N/A Intervention/Recommendation Comments 1. Continue with [facility] soft chopped diet as ordered. 2. Monitor PO intake, wt, labs and skin integrity 3. F/U as low risk in 7 days, 06/21 Expected Outcomes/Goals Expected Outcomes/Goals 1. PO intake to meet at least 75% of nutritional needs. 2. Wt stability, skin to remain intact, labs to approach WNL.
--- NOTE | 2017-06-20 07:05 | Progress Notes ---
DATE: 06/20/2017 SUBJECTIVE: The patient is still unruly, stating "get out," does not want to talk to me, still remains gravely disabled, unable to be cared for at a lower level of care, still requiring high level of redirection and prompting. He is med compliant and no combative behaviors, but remains impulsive. ASSESSMENT: The patient remains symptomatic, not safe for a lower level of care. We will continue to monitor. We are trying to confirm a safe discharge. PLAN: We will titrate and adjust medications. JOB# [id number]
[2017-06-20] MEDS: Multivitamin Tab PO SCH (09:35)
--- NOTE | 2017-06-20 11:23 | General Progress Note ---
Subjective - Review of Systems Service Date: 06/20/17 Subjective: resting comfortably in chair no distress Objective - Results Result Diagrams: 06/08/17 09:00 06/08/17 09:00 Recent Labs: Laboratory Last Values WBC 9.2 Th/cmm (4.8-10.8) 06/08/17 09:00 RBC 3.48 Mil/cmm (3.80-5.80) L 06/08/17 09:00 Hgb 10.8 gm/dL (12-16) L 06/08/17 09:00 Hct 31.9 % (41.0-60) L 06/08/17 09:00 MCV 91.5 fl (80-99) 06/08/17 09:00 MCH 30.9 pg (27.0-31.0) 06/08/17 09:00 MCHC Differential 33.8 pg (28.0-36.0) 06/08/17 09:00 RDW 14.4 % (11.5-20.0) 06/08/17 09:00 Plt Count 317 Th/cmm (150-400) 06/08/17 09:00 MPV 6.9 fl 06/08/17 09:00 Neutrophils % 82.4 % (40.0-80.0) H 06/08/17 09:00 Lymphocytes % 9.9 % (20.0-50.0) L 06/08/17 09:00 Monocytes % 6.5 % (2.0-10.0) 06/08/17 09:00 Eosinophils % 0.5 % (0.0-5.0) 06/08/17 09:00 Basophils % 0.7 % (0.0-2.0) 06/08/17 09:00 Sodium 139 mEq/L (136-145) 06/08/17 09:00 Potassium 3.9 mEq/L (3.5-5.1) 06/08/17 09:00 Chloride 107 mEq/L (98-107) 06/08/17 09:00 Carbon Dioxide 28.5 mEq/L (21.0-31.0) 06/08/17 09:00 Anion Gap 7.4 (7.0-16.0) 06/08/17 09:00 BUN 28 mg/dL (7-25) H 06/08/17 09:00 Creatinine 1.6 mg/dL (0.7-1.3) H 06/08/17 09:00 Est GFR ( Amer) TNP 06/08/17 09:00 Est GFR (Non-Af Amer) TNP 06/08/17 09:00 BUN/Creatinine Ratio 17.5 06/08/17 09:00 Glucose 129 mg/dL (70-105) H 06/08/17 09:00 Hemoglobin A1c % 4.8 % (4.0-6.0) 06/08/17 09:00 Calcium 10.1 mg/dL (8.6-10.3) 06/08/17 09:00 Total Bilirubin 0.5 mg/dL (0.3-1.0) 06/08/17 09:00 AST 16 U/L (13-39) 06/08/17 09:00 ALT 13 U/L (7-52) 06/08/17 09:00 Alkaline Phosphatase 180 U/L (34-104) H 06/08/17 09:00 Total Protein 7.2 gm/dL (6.0-8.3) 06/08/17 09:00 Albumin 3.6 gm/dL (4.2-5.5) L 06/08/17 09:00 Globulin 3.6 gm/dL 06/08/17 09:00 Albumin/Globulin Ratio 1.0 (1.0-1.8) 06/08/17 09:00 Triglycerides 118 mg/dL (<150) 06/08/17 09:00 Cholesterol 189 mg/dL (<200) 06/08/17 09:00 LDL Cholesterol Direct 137 mg/dL (75-193) 06/08/17 09:00 HDL Cholesterol 43 mg/dL (23-92) 06/08/17 09:00 TSH 3.25 uIU/ml (0.34-5.60) 06/08/17 09:00 Urine Source CLEAN C 06/08/17 07:45 Urine Color YELLOW 06/08/17 07:45 Urine Clarity CLEAR (CLEAR) 06/08/17 07:45 Urine pH 6.0 (4.6 - 8.0) 06/08/17 07:45 Ur Specific [place] 1.020 (1.005-1.030) 06/08/17 07:45 Urine Protein NEGATIVE mg/dL (NEGATIVE) 06/08/17 07:45 Urine Glucose (UA) NEGATIVE mg/dL (NEGATIVE) 06/08/17 07:45 Urine Ketones NEGATIVE mg/dL (NEGATIVE) 06/08/17 07:45 Urine Blood NEGATIVE (NEGATIVE) 06/08/17 07:45 Urine Nitrate NEGATIVE (NEGATIVE) 06/08/17 07:45 Urine Bilirubin NEGATIVE (NEGATIVE) 06/08/17 07:45 Urine Urobilinogen 0.2 E.U./dL (0.2 - 1.0) 06/08/17 07:45 Ur Leukocyte Esterase NEGATIVE (NEGATIVE) 06/08/17 07:45 Urine RBC 0-2 /hpf (0-5) H 06/08/17 07:45 Urine WBC 0-2 /hpf (0-5) 06/08/17 07:45 Ur Epithelial Cells RARE /lpf (FEW) 06/08/17 07:45 Urine Bacteria NONE SEEN /hpf (NONE SEEN) 06/08/17 07:45 Salicylates < 25.0 mg/L (30.0-100.0) L 06/08/17 09:00 Urine Opiates Screen POSITIVE (NEGATIVE) H 06/08/17 07:45 Urine Methadone Screen NEGATIVE (NEGATIVE) 06/08/17 07:45 Acetaminophen < 10.0 ug/mL (10.0-30.0) L 06/08/17 09:00 Ur Barbiturates Screen NEGATIVE (NEGATIVE) 06/08/17 07:45 Ur Tricyclics Screen NEGATIVE (NEGATIVE) 06/08/17 07:45 Ur Phencyclidine Scrn NEGATIVE (NEGATIVE) 06/08/17 07:45 Amphetamines Screen NEGATIVE (NEGATIVE) 06/08/17 07:45 U Methamphetamines Scrn NEGATIVE (NEGATIVE) 06/08/17 07:45 U Benzodiazepines Scrn NEGATIVE (NEGATIVE) 06/08/17 07:45 U Cocaine Metab Screen NEGATIVE (NEGATIVE) 06/08/17 07:45 U Cannabinoids Screen NEGATIVE (NEGATIVE) 06/08/17 07:45 Ethyl Alcohol < 10 mg/dL (0-10) 06/08/17 09:00 RPR NONREACTIVE (NONREACTIVE) 06/08/17 09:00 - Physical Exam Vitals and I&O: Vital Signs Temp 97.9 F 06/20/17 08:00 Pulse 77 06/20/17 08:00 Resp 20 06/20/17 08:00 BP 134/69 06/20/17 08:00 Pulse Ox 96 06/20/17 08:00 Intake & Output 06/19/17 06/20/17 06/20/17 18:59 06:59 18:59 Intake Total 1200 360 Balance 1200 360 Intake: Oral 1200 360 Other: # Voids 3 2 Stool Characteristics Soft Soft Formed Formed Active Medications: Current Medications Acetaminophen (Tylenol) 650 mg PO Q4HR PRN PRN Reason: Mild Pain / Temp above 100 Stop: 08/07/17 13:09 Al Hydrox/Mg Hydrox/Simethicone (Maalox) 30 ml PO Q4HR PRN PRN Reason: GI DISTRESS Stop: 08/07/17 13:09 Donepezil HCl (Aricept) 5 mg PO HS CARMINE Stop: 08/08/17 20:59 Last Admin: 06/19/17 21:36 Dose: 5 mg Lorazepam (Ativan) 0.5 mg PO Q6HR PRN PRN Reason: Agitation Stop: 08/13/17 16:06 Magnesium Hydroxide (Milk Of Magnesia) 30 ml PO HS PRN PRN Reason: Constipation Memantine (Namenda) 5 mg PO DAILY [facility] Stop: 08/09/17 08:59 Last Admin: 06/20/17 09:35 Dose: 5 mg Multivitamins/Vitamin C (Theragran) 1 tab PO DAILY CARMINE Stop: 08/08/17 08:59 Last Admin: 06/20/17 09:35 Dose: 1 tab Zolpidem Tartrate (Ambien) 5 mg PO HS PRN PRN Reason: Insomnia Stop: 08/07/17 13:09 Last Admin: 06/15/17 20:52 Dose: 5 mg General: Alert, Oriented x3, Cooperative HEENT: Atraumatic, PERRLA, EOMI Neck: Supple, JVD, Thyromegaly Cardiovascular: Regular rate, Normal S1, Normal S2 Lungs: Clear to auscultation Abdomen: Bowel sounds, Soft Assessment/Plan - Assessment Assessment: 1.ANEMIA 2.DJD. 3.LEFT EXTERNAL EAR SKIN LESION. 4.DEMENTIA. - Plan Plan: cont current treatment Nutritional Asmnt/Malnutr-PDOC - Dietary Evaluation Malnutrition Findings (Please click <Entered> for more info): Nutritional Asmnt/Malnutrition Start: 06/14/17 09: 57 Text: Status: Complete Freq: Document 06/14/17 09:57 QUINTON (Rec: 06/14/17 10:01 QUINTON [email or web address]) Nutritional Asmnt/Malnutrition Patient General Information Nutritional Screening Moderate Risk Diagnosis psychosis Pertinent Medical Hx/Surgical Hx DJD, chronic anemia, skin lesion, agitation Subjective Information Per EMR, PO intake 50-100%, avg 75%. Per nurse note, pt only oriented to self. Current Diet Order/ Nutrition Support [facility] soft chopped Pertinent Medications theragran Pertinent Labs 06/08 Na 139, K 3.9, Cl 107, BUN 28, Cr 1.6, Glucose 129, A1c 4.8, Alb 3.6 Nutritional Hx/Data Height 1.78 m Height (Calculated Centimeters) 177.8 Current Weight (lbs) 68.039 kg Weight (Calculated Kilograms) 68.0 Weight (Calculated Grams) 61523.9 [place] Body Weight 166 Body Mass Index (BMI) 21.5 Weight Status Approriate GI Symptoms GI Symptoms None Last BM 06/12 x 2 Difficult in: None Skin Integrity/Comment: laceration to left ear Estimated Nutritional Goals BEE in Kcals: Using Current wt Calories/Kcals/Kg 25-30 Kcals Calculated 5291-9550 Protein: Using Current wt Protein g/k Protein Calculated 75 Fluid: ml 1875-2250ml(1ml/kcal) Nutritional Problem No current Nutrition Prob Problem N/A Intervention/Recommendation Comments 1. Continue with [facility] soft chopped diet as ordered. 2. Monitor PO intake, wt, labs and skin integrity 3. F/U as low risk in 7 days, 06/21 Expected Outcomes/Goals Expected Outcomes/Goals 1. PO intake to meet at least 75% of nutritional needs. 2. Wt stability, skin to remain intact, labs to approach WNL.
[2017-06-21] MEDS: Multivitamin Tab PO SCH (09:03)
--- NOTE | 2017-06-21 21:44 | Internal Medicine Prog Note ---
Internal Medicine Subjective - Subjective Service Date: 06/21/17 Patient seen and examined:: with staff Patient is:: awake, in bed, confused Per staff patient has:: no adverse event Internal Medicine Objective - Results Result Diagrams: 06/08/17 09:00 06/08/17 09:00 Recent Labs: Laboratory Last Values WBC 9.2 Th/cmm (4.8-10.8) 06/08/17 09:00 RBC 3.48 Mil/cmm (3.80-5.80) L 06/08/17 09:00 Hgb 10.8 gm/dL (12-16) L 06/08/17 09:00 Hct 31.9 % (41.0-60) L 06/08/17 09:00 MCV 91.5 fl (80-99) 06/08/17 09:00 MCH 30.9 pg (27.0-31.0) 06/08/17 09:00 MCHC Differential 33.8 pg (28.0-36.0) 06/08/17 09:00 RDW 14.4 % (11.5-20.0) 06/08/17 09:00 Plt Count 317 Th/cmm (150-400) 06/08/17 09:00 MPV 6.9 fl 06/08/17 09:00 Neutrophils % 82.4 % (40.0-80.0) H 06/08/17 09:00 Lymphocytes % 9.9 % (20.0-50.0) L 06/08/17 09:00 Monocytes % 6.5 % (2.0-10.0) 06/08/17 09:00 Eosinophils % 0.5 % (0.0-5.0) 06/08/17 09:00 Basophils % 0.7 % (0.0-2.0) 06/08/17 09:00 Sodium 139 mEq/L (136-145) 06/08/17 09:00 Potassium 3.9 mEq/L (3.5-5.1) 06/08/17 09:00 Chloride 107 mEq/L (98-107) 06/08/17 09:00 Carbon Dioxide 28.5 mEq/L (21.0-31.0) 06/08/17 09:00 Anion Gap 7.4 (7.0-16.0) 06/08/17 09:00 BUN 28 mg/dL (7-25) H 06/08/17 09:00 Creatinine 1.6 mg/dL (0.7-1.3) H 06/08/17 09:00 Est GFR ( Amer) TNP 06/08/17 09:00 Est GFR (Non-Af Amer) TNP 06/08/17 09:00 BUN/Creatinine Ratio 17.5 06/08/17 09:00 Glucose 129 mg/dL (70-105) H 06/08/17 09:00 Hemoglobin A1c % 4.8 % (4.0-6.0) 06/08/17 09:00 Calcium 10.1 mg/dL (8.6-10.3) 06/08/17 09:00 Total Bilirubin 0.5 mg/dL (0.3-1.0) 06/08/17 09:00 AST 16 U/L (13-39) 06/08/17 09:00 ALT 13 U/L (7-52) 06/08/17 09:00 Alkaline Phosphatase 180 U/L (34-104) H 06/08/17 09:00 Total Protein 7.2 gm/dL (6.0-8.3) 06/08/17 09:00 Albumin 3.6 gm/dL (4.2-5.5) L 06/08/17 09:00 Globulin 3.6 gm/dL 06/08/17 09:00 Albumin/Globulin Ratio 1.0 (1.0-1.8) 06/08/17 09:00 Triglycerides 118 mg/dL (<150) 06/08/17 09:00 Cholesterol 189 mg/dL (<200) 06/08/17 09:00 LDL Cholesterol Direct 137 mg/dL (75-193) 06/08/17 09:00 HDL Cholesterol 43 mg/dL (23-92) 06/08/17 09:00 TSH 3.25 uIU/ml (0.34-5.60) 06/08/17 09:00 Urine Source CLEAN C 06/08/17 07:45 Urine Color YELLOW 06/08/17 07:45 Urine Clarity CLEAR (CLEAR) 06/08/17 07:45 Urine pH 6.0 (4.6 - 8.0) 06/08/17 07:45 Ur Specific [place] 1.020 (1.005-1.030) 06/08/17 07:45 Urine Protein NEGATIVE mg/dL (NEGATIVE) 06/08/17 07:45 Urine Glucose (UA) NEGATIVE mg/dL (NEGATIVE) 06/08/17 07:45 Urine Ketones NEGATIVE mg/dL (NEGATIVE) 06/08/17 07:45 Urine Blood NEGATIVE (NEGATIVE) 06/08/17 07:45 Urine Nitrate NEGATIVE (NEGATIVE) 06/08/17 07:45 Urine Bilirubin NEGATIVE (NEGATIVE) 06/08/17 07:45 Urine Urobilinogen 0.2 E.U./dL (0.2 - 1.0) 06/08/17 07:45 Ur Leukocyte Esterase NEGATIVE (NEGATIVE) 06/08/17 07:45 Urine RBC 0-2 /hpf (0-5) H 06/08/17 07:45 Urine WBC 0-2 /hpf (0-5) 06/08/17 07:45 Ur Epithelial Cells RARE /lpf (FEW) 06/08/17 07:45 Urine Bacteria NONE SEEN /hpf (NONE SEEN) 06/08/17 07:45 Salicylates < 25.0 mg/L (30.0-100.0) L 06/08/17 09:00 Urine Opiates Screen POSITIVE (NEGATIVE) H 06/08/17 07:45 Urine Methadone Screen NEGATIVE (NEGATIVE) 06/08/17 07:45 Acetaminophen < 10.0 ug/mL (10.0-30.0) L 06/08/17 09:00 Ur Barbiturates Screen NEGATIVE (NEGATIVE) 06/08/17 07:45 Ur Tricyclics Screen NEGATIVE (NEGATIVE) 06/08/17 07:45 Ur Phencyclidine Scrn NEGATIVE (NEGATIVE) 06/08/17 07:45 Amphetamines Screen NEGATIVE (NEGATIVE) 06/08/17 07:45 U Methamphetamines Scrn NEGATIVE (NEGATIVE) 06/08/17 07:45 U Benzodiazepines Scrn NEGATIVE (NEGATIVE) 06/08/17 07:45 U Cocaine Metab Screen NEGATIVE (NEGATIVE) 06/08/17 07:45 U Cannabinoids Screen NEGATIVE (NEGATIVE) 06/08/17 07:45 Ethyl Alcohol < 10 mg/dL (0-10) 06/08/17 09:00 RPR NONREACTIVE (NONREACTIVE) 06/08/17 09:00 - Physical Exam Vitals and I&O: Vital Signs Temp 97.6 F 06/21/17 20:06 Pulse 80 06/21/17 20:06 Resp 18 06/21/17 20:06 BP 121/55 06/21/17 20:06 Pulse Ox 98 06/21/17 20:06 Intake & Output 06/21/17 06/21/17 06/22/17 06:59 18:59 06:59 Intake Total 240 1175 120 Balance 240 1175 120 Intake: Oral 240 1175 120 Other: # Voids 1 3 3 # Bowel Movements 1 1 0 Stool Characteristics Soft Soft Formed Formed Active Medications: Current Medications Acetaminophen (Tylenol) 650 mg PO Q4HR PRN PRN Reason: Mild Pain / Temp above 100 Stop: 08/07/17 13:09 Al Hydrox/Mg Hydrox/Simethicone (Maalox) 30 ml PO Q4HR PRN PRN Reason: GI DISTRESS Stop: 08/07/17 13:09 Donepezil HCl (Aricept) 5 mg PO HS [facility] Stop: 08/08/17 20:59 Last Admin: 06/21/17 21:18 Dose: 5 mg Lorazepam (Ativan) 0.5 mg PO Q6HR PRN PRN Reason: Agitation Stop: 08/13/17 16:06 Magnesium Hydroxide (Milk Of Magnesia) 30 ml PO HS PRN PRN Reason: Constipation Memantine (Namenda) 5 mg PO BID [facility] Stop: 08/20/17 16:59 Last Admin: 06/21/17 17:52 Dose: 5 mg Multivitamins/Vitamin C (Theragran) 1 tab PO DAILY [facility] Stop: 08/08/17 08:59 Last Admin: 06/21/17 09:03 Dose: 1 tab Zolpidem Tartrate (Ambien) 5 mg PO HS PRN PRN Reason: Insomnia Stop: 08/07/17 13:09 Last Admin: 06/21/17 21:18 Dose: 5 mg General: demented HEENT: NC/AT, PERRLA, EOMI, anicteric sclerae, throat clear Neck: Supple, No JVD, No thyromegaly Lungs: CTAB Abdomen: soft, non-tender, non-distended Extremities: clear Neurological: no change Internal Medicine Assmt/Plan - Assessment Assessment: 1.ANEMIA 2.DJD. 3.LEFT EXTERNAL EAR SKIN LESION. 4.DEMENTIA. - Plan Plan: CONTINUE ON CURRENT MEDICATION AND DIET. Nutritional Asmnt/Malnutr-PDOC - Dietary Evaluation Malnutrition Findings (Please click <Entered> for more info): Nutritional Asmnt/Malnutrition Start: 06/14/17 09: 57 Text: Status: Complete Freq: Document 06/14/17 09:57 QUINTON (Rec: 06/14/17 10:01 QUINTON [email or web address]) Nutritional Asmnt/Malnutrition Patient General Information Nutritional Screening Moderate Risk Diagnosis psychosis Pertinent Medical Hx/Surgical Hx DJD, chronic anemia, skin lesion, agitation Subjective Information Per EMR, PO intake 50-100%, avg 75%. Per nurse note, pt only oriented to self. Current Diet Order/ Nutrition Support [facility] [place] soft chopped Pertinent Medications theragran Pertinent Labs 06/08 Na 139, K 3.9, Cl 107, BUN 28, Cr 1.6, Glucose 129, A1c 4.8, Alb 3.6 Nutritional Hx/Data Height 1.78 m Height (Calculated Centimeters) 177.8 Current Weight (lbs) 68.039 kg Weight (Calculated Kilograms) 68.0 Weight (Calculated Grams) 35110.9 [place] Body Weight 166 Body Mass Index (BMI) 21.5 Weight Status Approriate GI Symptoms GI Symptoms None Last BM 06/12 x 2 Difficult in: None Skin Integrity/Comment: laceration to left ear Estimated Nutritional Goals BEE in Kcals: Using Current wt Calories/Kcals/Kg 25-30 Kcals Calculated 0304-8175 Protein: Using Current wt Protein g/k Protein Calculated 75 Fluid: ml 1875-2250ml(1ml/kcal) Nutritional Problem No current Nutrition Prob Problem N/A Intervention/Recommendation Comments 1. Continue with [facility] [place] soft chopped diet as ordered. 2. Monitor PO intake, wt, labs and skin integrity 3. F/U as low risk in 7 days, 06/21 Expected Outcomes/Goals Expected Outcomes/Goals 1. PO intake to meet at least 75% of nutritional needs. 2. Wt stability, skin to remain intact, labs to approach WNL.
--- NOTE | 2017-06-21 23:35 | Progress Notes ---
DATE: 06/21/[address] Charlie Reed. Case was discussed with staff of the patient, reviewed records. This is an 82-year-old male who was admitted on 06/08/2017 because of hostile, agitated behavior, who was disoriented, rambling, hostile, agitated, aggressive, very confused, not answering questions with a history of dementia. The patient continues to be confused. Continues to isolate himself staying in bed most of the time and unable to carry on a conversation, disoriented. He is compliant with the medication with no side effects. He is on Aricept 5 mg at bedtime, Namenda 5 mg daily and started on 06/10/2017, so I will be increasing the dose to twice a day and so far no side effects with the medication, no sedation, no nausea. I will continue to work with the patient in group therapy, milieu therapy and adjust medications as needed. JOB# [id number]
[2017-06-22] MEDS: Multivitamin Tab PO SCH (09:17)
[2017-06-22] MEDS ORDERED: ILOPERIDONE 8 MG PO SCH (17:00)
[2017-06-22] MEDS: FANAPT 8 MG PO SCH (17:23)
[2017-06-22] MEDS ORDERED: Non-Formulary Item 1 EA (Acetaminophen [Pain Reliever] 650 MG) PO PRN (21:47)
[2017-06-22] MEDS ORDERED: Albuterol Nebulizer 2.5mg/3mL HHN PRN (21:47)
[2017-06-22] MEDS ORDERED: Hydrocodone/APAP 5mg/325mg Tab PO PRN (21:47)
--- NOTE | 2017-06-22 21:52 | Internal Medicine Prog Note ---
Internal Medicine Subjective - Subjective Service Date: 06/22/17 Patient seen and examined:: with staff Patient is:: awake, in bed, confused Per staff patient has:: no adverse event Internal Medicine Objective - Results Result Diagrams: 06/08/17 09:00 06/08/17 09:00 Recent Labs: Laboratory Last Values WBC 9.2 Th/cmm (4.8-10.8) 06/08/17 09:00 RBC 3.48 Mil/cmm (3.80-5.80) L 06/08/17 09:00 Hgb 10.8 gm/dL (12-16) L 06/08/17 09:00 Hct 31.9 % (41.0-60) L 06/08/17 09:00 MCV 91.5 fl (80-99) 06/08/17 09:00 MCH 30.9 pg (27.0-31.0) 06/08/17 09:00 MCHC Differential 33.8 pg (28.0-36.0) 06/08/17 09:00 RDW 14.4 % (11.5-20.0) 06/08/17 09:00 Plt Count 317 Th/cmm (150-400) 06/08/17 09:00 MPV 6.9 fl 06/08/17 09:00 Neutrophils % 82.4 % (40.0-80.0) H 06/08/17 09:00 Lymphocytes % 9.9 % (20.0-50.0) L 06/08/17 09:00 Monocytes % 6.5 % (2.0-10.0) 06/08/17 09:00 Eosinophils % 0.5 % (0.0-5.0) 06/08/17 09:00 Basophils % 0.7 % (0.0-2.0) 06/08/17 09:00 Sodium 139 mEq/L (136-145) 06/08/17 09:00 Potassium 3.9 mEq/L (3.5-5.1) 06/08/17 09:00 Chloride 107 mEq/L (98-107) 06/08/17 09:00 Carbon Dioxide 28.5 mEq/L (21.0-31.0) 06/08/17 09:00 Anion Gap 7.4 (7.0-16.0) 06/08/17 09:00 BUN 28 mg/dL (7-25) H 06/08/17 09:00 Creatinine 1.6 mg/dL (0.7-1.3) H 06/08/17 09:00 Est GFR ( Amer) TNP 06/08/17 09:00 Est GFR (Non-Af Amer) TNP 06/08/17 09:00 BUN/Creatinine Ratio 17.5 06/08/17 09:00 Glucose 129 mg/dL (70-105) H 06/08/17 09:00 Hemoglobin A1c % 4.8 % (4.0-6.0) 06/08/17 09:00 Calcium 10.1 mg/dL (8.6-10.3) 06/08/17 09:00 Total Bilirubin 0.5 mg/dL (0.3-1.0) 06/08/17 09:00 AST 16 U/L (13-39) 06/08/17 09:00 ALT 13 U/L (7-52) 06/08/17 09:00 Alkaline Phosphatase 180 U/L (34-104) H 06/08/17 09:00 Total Protein 7.2 gm/dL (6.0-8.3) 06/08/17 09:00 Albumin 3.6 gm/dL (4.2-5.5) L 06/08/17 09:00 Globulin 3.6 gm/dL 06/08/17 09:00 Albumin/Globulin Ratio 1.0 (1.0-1.8) 06/08/17 09:00 Triglycerides 118 mg/dL (<150) 06/08/17 09:00 Cholesterol 189 mg/dL (<200) 06/08/17 09:00 LDL Cholesterol Direct 137 mg/dL (75-193) 06/08/17 09:00 HDL Cholesterol 43 mg/dL (23-92) 06/08/17 09:00 TSH 3.25 uIU/ml (0.34-5.60) 06/08/17 09:00 Urine Source CLEAN C 06/08/17 07:45 Urine Color YELLOW 06/08/17 07:45 Urine Clarity CLEAR (CLEAR) 06/08/17 07:45 Urine pH 6.0 (4.6 - 8.0) 06/08/17 07:45 Ur Specific [place] 1.020 (1.005-1.030) 06/08/17 07:45 Urine Protein NEGATIVE mg/dL (NEGATIVE) 06/08/17 07:45 Urine Glucose (UA) NEGATIVE mg/dL (NEGATIVE) 06/08/17 07:45 Urine Ketones NEGATIVE mg/dL (NEGATIVE) 06/08/17 07:45 Urine Blood NEGATIVE (NEGATIVE) 06/08/17 07:45 Urine Nitrate NEGATIVE (NEGATIVE) 06/08/17 07:45 Urine Bilirubin NEGATIVE (NEGATIVE) 06/08/17 07:45 Urine Urobilinogen 0.2 E.U./dL (0.2 - 1.0) 06/08/17 07:45 Ur Leukocyte Esterase NEGATIVE (NEGATIVE) 06/08/17 07:45 Urine RBC 0-2 /hpf (0-5) H 06/08/17 07:45 Urine WBC 0-2 /hpf (0-5) 06/08/17 07:45 Ur Epithelial Cells RARE /lpf (FEW) 06/08/17 07:45 Urine Bacteria NONE SEEN /hpf (NONE SEEN) 06/08/17 07:45 Salicylates < 25.0 mg/L (30.0-100.0) L 06/08/17 09:00 Urine Opiates Screen POSITIVE (NEGATIVE) H 06/08/17 07:45 Urine Methadone Screen NEGATIVE (NEGATIVE) 06/08/17 07:45 Acetaminophen < 10.0 ug/mL (10.0-30.0) L 06/08/17 09:00 Ur Barbiturates Screen NEGATIVE (NEGATIVE) 06/08/17 07:45 Ur Tricyclics Screen NEGATIVE (NEGATIVE) 06/08/17 07:45 Ur Phencyclidine Scrn NEGATIVE (NEGATIVE) 06/08/17 07:45 Amphetamines Screen NEGATIVE (NEGATIVE) 06/08/17 07:45 U Methamphetamines Scrn NEGATIVE (NEGATIVE) 06/08/17 07:45 U Benzodiazepines Scrn NEGATIVE (NEGATIVE) 06/08/17 07:45 U Cocaine Metab Screen NEGATIVE (NEGATIVE) 06/08/17 07:45 U Cannabinoids Screen NEGATIVE (NEGATIVE) 06/08/17 07:45 Ethyl Alcohol < 10 mg/dL (0-10) 06/08/17 09:00 RPR NONREACTIVE (NONREACTIVE) 06/08/17 09:00 - Physical Exam Vitals and I&O: Vital Signs Temp 98 F 06/22/17 20:00 Pulse 60 06/22/17 20:00 Resp 19 06/22/17 20:00 BP 110/63 06/22/17 20:00 Pulse Ox 98 06/22/17 20:00 Intake & Output 06/22/17 06/22/17 06/23/17 06:59 18:59 06:59 Intake Total 120 1200 Balance 120 1200 Intake: Oral 120 1200 Other: # Voids 3 3 # Bowel Movements 0 Stool Characteristics Soft Soft Formed Formed Active Medications: Current Medications Acetaminophen (Tylenol) 650 mg PO Q4HR PRN PRN Reason: Mild Pain / Temp above 100 Stop: 08/07/17 13:09 Last Admin: 06/22/17 15:43 Dose: 650 mg Acetaminophen/Hydrocodone Bitart ([place] 5mg/325mg) 1 tab PO Q6H PRN PRN Reason: Pain (Moderate) Stop: 08/21/17 21:46 Al Hydrox/Mg Hydrox/Simethicone (Maalox) 30 ml PO Q4HR PRN PRN Reason: GI DISTRESS Stop: 08/07/17 13:09 Ascorbic Acid (Vitamin C) mg PO DAILY [facility] Stop: 08/22/17 08:59 Famotidine (Pepcid) 20 mg PO DAILY [facility] Stop: 08/22/17 08:59 Levothyroxine Sodium (Synthroid) mg PO DAILY [facility] Stop: 08/22/17 08:59 Lorazepam (Ativan) 0.5 mg PO Q6HR PRN PRN Reason: Agitation Stop: 08/13/17 16:06 Last Admin: 06/22/17 15:44 Dose: 0.5 mg Magnesium Hydroxide (Milk Of Magnesia) 30 ml PO HS PRN PRN Reason: Constipation Metoprolol Tartrate (Lopressor) mg PO BID [facility] Stop: 08/22/17 08:59 Miscellaneous (Acetaminophen [Pain Reliever]) 650 mg PO Q4H PRN PRN Reason: fever>101 Miscellaneous (Albuterol Sulfate [Albuterol Sulfate]) 1 unit INH Q8H PRN PRN Reason: Shortness of Breath Miscellaneous (Lactobacillus Acidophilus/Pect [Acidophilus-Pectin Capsule]) 1 cap PO DAILY [facility] Stop: 08/22/17 08:59 Miscellaneous (Multivitamin [Multi-Day Vitamins]) 1 tab PO DAILY [facility] Stop: 08/22/17 08:59 Multivitamins/Vitamin C (Theragran) 1 tab PO DAILY [facility] Stop: 08/08/17 08:59 Last Admin: 06/22/17 09:17 Dose: 1 tab Ondansetron HCl (Zofran Odt) mg PO Q8H PRN PRN Reason: Nausea / Vomiting Stop: 08/21/17 21:46 Oxybutynin Chloride (Ditropan) mg PO BID [facility] Stop: 08/22/17 08:59 Fanapt (Iloperidone) (8mg Tablet) 1 PO BID [facility] Stop: 08/21/17 16:59 Last Admin: 06/22/17 17:23 Dose: 1 Quetiapine Fumarate (Seroquel) 75 mg PO HS [facility] PRN Reason: Protocol Stop: 08/21/17 20:59 Last Admin: 06/22/17 21:01 Dose: 75 mg Senna (Senna) mg PO HS [facility] Stop: 08/22/17 20:59 Tamsulosin HCl (Flomax) 0.4 mg PO DAILY [facility] Stop: 08/22/17 08:59 Zolpidem Tartrate (Ambien) 5 mg PO HS PRN PRN Reason: Insomnia Stop: 08/07/17 13:09 Last Admin: 06/21/17 21:18 Dose: 5 mg General: demented HEENT: NC/AT, PERRLA, EOMI, anicteric sclerae, throat clear Neck: Supple, No JVD, No thyromegaly Lungs: CTAB Abdomen: soft, non-tender, non-distended Extremities: clear Neurological: no change Internal Medicine Assmt/Plan - Assessment Assessment: 1.HTN 2.HYPOTHYROIDISM. 3.LEFT EXTERNAL EAR SKIN LESION. 4.CONFUSED - Plan Plan: CONTINUE ON CURRENT MEDICATION AND DIET. Nutritional Asmnt/Malnutr-PDOC - Dietary Evaluation Malnutrition Findings (Please click <Entered> for more info): Nutritional Asmnt/Malnutrition Start: 06/14/17 09: 57 Text: Status: Complete Freq: Document 06/14/17 09:57 QUINTON (Rec: 06/14/17 10:01 [email or web address] [email or web address]) Nutritional Asmnt/Malnutrition Patient General Information Nutritional Screening Moderate Risk Diagnosis psychosis Pertinent Medical Hx/Surgical Hx DJD, chronic anemia, skin lesion, agitation Subjective Information Per EMR, PO intake 50-100%, avg 75%. Per nurse note, pt only oriented to self. Current Diet Order/ Nutrition Support [facility] soft chopped Pertinent Medications theragran Pertinent Labs 06/08 Na 139, K 3.9, Cl 107, BUN 28, Cr 1.6, Glucose 129, A1c 4.8, Alb 3.6 Nutritional Hx/Data Height 1.78 m Height (Calculated Centimeters) 177.8 Current Weight (lbs) 68.039 kg Weight (Calculated Kilograms) 68.0 Weight (Calculated Grams) 18988.9 [place] Body Weight 166 Body Mass Index (BMI) 21.5 Weight Status Approriate GI Symptoms GI Symptoms None Last BM 06/12 x 2 Difficult in: None Skin Integrity/Comment: laceration to left ear Estimated Nutritional Goals BEE in Kcals: Using Current wt Calories/Kcals/Kg 25-30 Kcals Calculated 2213-1751 Protein: Using Current wt Protein g/k Protein Calculated 75 Fluid: ml 1875-2250ml(1ml/kcal) Nutritional Problem No current Nutrition Prob Problem N/A Intervention/Recommendation Comments 1. Continue with [facility] soft chopped diet as ordered. 2. Monitor PO intake, wt, labs and skin integrity 3. F/U as low risk in 7 days, 06/21 Expected Outcomes/Goals Expected Outcomes/Goals 1. PO intake to meet at least 75% of nutritional needs. 2. Wt stability, skin to remain intact, labs to approach WNL.
--- NOTE | 2017-06-22 21:59 | Progress Notes ---
DATE: 06/22/[address] Reed. SUBJECTIVE: Case was discussed with staff of the patient and reviewed records. 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 He was supposed to be on Seroquel and that was restarted, ordered by Dr. Reed and the patient continues to be unable to make safe plan for self-care. Continues to be unpredictable, impulsive, needing redirection. Very poor insight. We will continue the patient in group therapy, milieu therapy, and adjust medication as needed. JOB# [id number]
[2017-06-23] MEDS: Levothyroxine 0.075 Mg Tab PO SCH (08:00)
[2017-06-23] MEDS ORDERED: Non-Formulary Item 1 EA (Multivitamin [Multi-Day Vitamins] 1 TAB) PO SCH (09:00)
[2017-06-23] MEDS ORDERED: [UNRECOGNIZED DRUG - OTHER] PO SCH (09:00)
[2017-06-23] MEDS: Multivitamin Tab PO SCH (09:15)
[2017-06-23] MEDS: FANAPT 8 MG PO SCH ×2 (09:19→16:22)
--- NOTE | 2017-06-23 22:47 | Internal Medicine Prog Note ---
Internal Medicine Subjective - Subjective Service Date: 06/23/17 Patient seen and examined:: without staff Patient is:: awake, in bed, confused Per staff patient has:: no adverse event Internal Medicine Objective - Results Result Diagrams: 06/08/17 09:00 06/08/17 09:00 Recent Labs: Laboratory Last Values WBC 9.2 Th/cmm (4.8-10.8) 06/08/17 09:00 RBC 3.48 Mil/cmm (3.80-5.80) L 06/08/17 09:00 Hgb 10.8 gm/dL (12-16) L 06/08/17 09:00 Hct 31.9 % (41.0-60) L 06/08/17 09:00 MCV 91.5 fl (80-99) 06/08/17 09:00 MCH 30.9 pg (27.0-31.0) 06/08/17 09:00 MCHC Differential 33.8 pg (28.0-36.0) 06/08/17 09:00 RDW 14.4 % (11.5-20.0) 06/08/17 09:00 Plt Count 317 Th/cmm (150-400) 06/08/17 09:00 MPV 6.9 fl 06/08/17 09:00 Neutrophils % 82.4 % (40.0-80.0) H 06/08/17 09:00 Lymphocytes % 9.9 % (20.0-50.0) L 06/08/17 09:00 Monocytes % 6.5 % (2.0-10.0) 06/08/17 09:00 Eosinophils % 0.5 % (0.0-5.0) 06/08/17 09:00 Basophils % 0.7 % (0.0-2.0) 06/08/17 09:00 Sodium 139 mEq/L (136-145) 06/08/17 09:00 Potassium 3.9 mEq/L (3.5-5.1) 06/08/17 09:00 Chloride 107 mEq/L (98-107) 06/08/17 09:00 Carbon Dioxide 28.5 mEq/L (21.0-31.0) 06/08/17 09:00 Anion Gap 7.4 (7.0-16.0) 06/08/17 09:00 BUN 28 mg/dL (7-25) H 06/08/17 09:00 Creatinine 1.6 mg/dL (0.7-1.3) H 06/08/17 09:00 Est GFR ( Amer) TNP 06/08/17 09:00 Est GFR (Non-Af Amer) TNP 06/08/17 09:00 BUN/Creatinine Ratio 17.5 06/08/17 09:00 Glucose 129 mg/dL (70-105) H 06/08/17 09:00 Hemoglobin A1c % 4.8 % (4.0-6.0) 06/08/17 09:00 Calcium 10.1 mg/dL (8.6-10.3) 06/08/17 09:00 Total Bilirubin 0.5 mg/dL (0.3-1.0) 06/08/17 09:00 AST 16 U/L (13-39) 06/08/17 09:00 ALT 13 U/L (7-52) 06/08/17 09:00 Alkaline Phosphatase 180 U/L (34-104) H 06/08/17 09:00 Total Protein 7.2 gm/dL (6.0-8.3) 06/08/17 09:00 Albumin 3.6 gm/dL (4.2-5.5) L 06/08/17 09:00 Globulin 3.6 gm/dL 06/08/17 09:00 Albumin/Globulin Ratio 1.0 (1.0-1.8) 06/08/17 09:00 Triglycerides 118 mg/dL (<150) 06/08/17 09:00 Cholesterol 189 mg/dL (<200) 06/08/17 09:00 LDL Cholesterol Direct 137 mg/dL (75-193) 06/08/17 09:00 HDL Cholesterol 43 mg/dL (23-92) 06/08/17 09:00 TSH 3.25 uIU/ml (0.34-5.60) 06/08/17 09:00 Urine Source CLEAN C 06/08/17 07:45 Urine Color YELLOW 06/08/17 07:45 Urine Clarity CLEAR (CLEAR) 06/08/17 07:45 Urine pH 6.0 (4.6 - 8.0) 06/08/17 07:45 Ur Specific [place] 1.020 (1.005-1.030) 06/08/17 07:45 Urine Protein NEGATIVE mg/dL (NEGATIVE) 06/08/17 07:45 Urine Glucose (UA) NEGATIVE mg/dL (NEGATIVE) 06/08/17 07:45 Urine Ketones NEGATIVE mg/dL (NEGATIVE) 06/08/17 07:45 Urine Blood NEGATIVE (NEGATIVE) 06/08/17 07:45 Urine Nitrate NEGATIVE (NEGATIVE) 06/08/17 07:45 Urine Bilirubin NEGATIVE (NEGATIVE) 06/08/17 07:45 Urine Urobilinogen 0.2 E.U./dL (0.2 - 1.0) 06/08/17 07:45 Ur Leukocyte Esterase NEGATIVE (NEGATIVE) 06/08/17 07:45 Urine RBC 0-2 /hpf (0-5) H 06/08/17 07:45 Urine WBC 0-2 /hpf (0-5) 06/08/17 07:45 Ur Epithelial Cells RARE /lpf (FEW) 06/08/17 07:45 Urine Bacteria NONE SEEN /hpf (NONE SEEN) 06/08/17 07:45 Salicylates < 25.0 mg/L (30.0-100.0) L 06/08/17 09:00 Urine Opiates Screen POSITIVE (NEGATIVE) H 06/08/17 07:45 Urine Methadone Screen NEGATIVE (NEGATIVE) 06/08/17 07:45 Acetaminophen < 10.0 ug/mL (10.0-30.0) L 06/08/17 09:00 Ur Barbiturates Screen NEGATIVE (NEGATIVE) 06/08/17 07:45 Ur Tricyclics Screen NEGATIVE (NEGATIVE) 06/08/17 07:45 Ur Phencyclidine Scrn NEGATIVE (NEGATIVE) 06/08/17 07:45 Amphetamines Screen NEGATIVE (NEGATIVE) 06/08/17 07:45 U Methamphetamines Scrn NEGATIVE (NEGATIVE) 06/08/17 07:45 U Benzodiazepines Scrn NEGATIVE (NEGATIVE) 06/08/17 07:45 U Cocaine Metab Screen NEGATIVE (NEGATIVE) 06/08/17 07:45 U Cannabinoids Screen NEGATIVE (NEGATIVE) 06/08/17 07:45 Ethyl Alcohol < 10 mg/dL (0-10) 06/08/17 09:00 RPR NONREACTIVE (NONREACTIVE) 06/08/17 09:00 - Physical Exam Vitals and I&O: Vital Signs Temp 97 F 06/23/17 20:00 Pulse 85 06/23/17 20:00 Resp 18 06/23/17 20:00 BP 108/66 06/23/17 20:00 Pulse Ox 96 06/23/17 20:00 Intake & Output 06/23/17 06/23/17 06/24/17 06:59 18:59 06:59 Intake Total 240 1200 Balance 240 1200 Intake: Oral 240 1200 Other: # Voids 3 3 Stool Characteristics Soft Active Medications: Current Medications Acetaminophen (Tylenol) 650 mg PO Q4HR PRN PRN Reason: Mild Pain / Temp above 100 Stop: 08/07/17 13:09 Last Admin: 06/23/17 15:26 Dose: 650 mg Acetaminophen/Hydrocodone Bitart ([place] 5mg/325mg) 1 tab PO Q6H PRN PRN Reason: Pain (Moderate) Stop: 08/21/17 21:46 Al Hydrox/Mg Hydrox/Simethicone (Maalox) 30 ml PO Q4HR PRN PRN Reason: GI DISTRESS Stop: 08/07/17 13:09 Albuterol Sulfate (Albuterol 2.5mg/3ml Neb Ud) 2.5 mg HHN Q8H PRN PRN Reason: Shortness of Breath Ascorbic Acid (Vitamin C) 500 mg PO DAILY [facility] Stop: 08/22/17 08:59 Last Admin: 06/23/17 09:15 Dose: 500 mg Famotidine (Pepcid) 20 mg PO DAILY [facility] Stop: 08/22/17 08:59 Last Admin: 06/23/17 09:15 Dose: 20 mg Levothyroxine Sodium (Synthroid) 0.075 mg PO QDAC [facility] Stop: 08/22/17 07:29 Last Admin: 06/23/17 08:00 Dose: 0.075 mg Lorazepam (Ativan) 0.5 mg PO Q6HR PRN PRN Reason: Agitation Stop: 08/13/17 16:06 Last Admin: 06/23/17 20:42 Dose: 0.5 mg Magnesium Hydroxide (Milk Of Magnesia) 30 ml PO HS PRN PRN Reason: Constipation Metoprolol Tartrate (Lopressor) 12.5 mg PO BID [facility] Stop: 08/22/17 08:59 Last Admin: 06/23/17 16:22 Dose: 12.5 mg Multivitamins/Vitamin C (Theragran) 1 tab PO DAILY [facility] Stop: 08/08/17 08:59 Last Admin: 06/23/17 09:15 Dose: 1 tab Ondansetron HCl (Zofran Odt) 4 mg PO Q8H PRN PRN Reason: Nausea / Vomiting Stop: 08/21/17 21:46 Oxybutynin Chloride (Ditropan) 5 mg PO BID [facility] Stop: 08/22/17 08:59 Last Admin: 06/23/17 16:22 Dose: 5 mg Fanapt (Iloperidone) (8mg Tablet) 1 PO BID [facility] Stop: 08/21/17 16:59 Last Admin: 06/23/17 16:22 Dose: 1 Quetiapine Fumarate (Seroquel) 75 mg PO HS [facility] PRN Reason: Protocol Stop: 08/21/17 20:59 Last Admin: 06/23/17 20:41 Dose: 75 mg Senna (Senna) 17.2 mg PO HS [facility] Stop: 08/22/17 20:59 Last Admin: 06/23/17 20:40 Dose: 17.2 mg Tamsulosin HCl (Flomax) 0.4 mg PO DAILY [facility] Stop: 08/22/17 08:59 Last Admin: 06/23/17 09:15 Dose: 0.4 mg Zolpidem Tartrate (Ambien) 5 mg PO HS PRN PRN Reason: Insomnia Stop: 08/07/17 13:09 Last Admin: 06/23/17 20:42 Dose: 5 mg General: demented HEENT: NC/AT, PERRLA, EOMI, anicteric sclerae, throat clear Neck: Supple, No JVD, No thyromegaly Lungs: CTAB Abdomen: soft, non-tender, non-distended Extremities: clear Neurological: no change Internal Medicine Assmt/Plan - Assessment Assessment: 1.HTN 2.HYPOTHYROIDISM. 3.LEFT EXTERNAL EAR SKIN LESION. 4.CONFUSED - Plan Plan: CONTINUE ON CURRENT MEDICATION AND DIET. Nutritional Asmnt/Malnutr-PDOC - Dietary Evaluation Malnutrition Findings (Please click <Entered> for more info): Nutritional Asmnt/Malnutrition Start: 06/14/17 09: 57 Text: Status: Complete Freq: Document 06/14/17 09:57 BETTY (Rec: 06/14/17 10:01 REJI [email or web address]) Nutritional Asmnt/Malnutrition Patient General Information Nutritional Screening Moderate Risk Diagnosis psychosis Pertinent Medical Hx/Surgical Hx DJD, chronic anemia, skin lesion, agitation Subjective Information Per EMR, PO intake 50-100%, avg 75%. Per nurse note, pt only oriented to self. Current Diet Order/ Nutrition Support [facility] soft chopped Pertinent Medications theragran Pertinent Labs 06/08 Na 139, K 3.9, Cl 107, BUN 28, Cr 1.6, Glucose 129, A1c 4.8, Alb 3.6 Nutritional Hx/Data Height 1.78 m Height (Calculated Centimeters) 177.8 Current Weight (lbs) 68.039 kg Weight (Calculated Kilograms) 68.0 Weight (Calculated Grams) 57689.9 [place] Body Weight 166 Body Mass Index (BMI) 21.5 Weight Status Approriate GI Symptoms GI Symptoms None Last BM 06/12 x 2 Difficult in: None Skin Integrity/Comment: laceration to left ear Estimated Nutritional Goals BEE in Kcals: Using Current wt Calories/Kcals/Kg 25-30 Kcals Calculated 9978-8244 Protein: Using Current wt Protein g/k Protein Calculated 75 Fluid: ml 1875-2250ml(1ml/kcal) Nutritional Problem No current Nutrition Prob Problem N/A Intervention/Recommendation Comments 1. Continue with [facility] soft chopped diet as ordered. 2. Monitor PO intake, wt, labs and skin integrity 3. F/U as low risk in 7 days, 06/21 Expected Outcomes/Goals Expected Outcomes/Goals 1. PO intake to meet at least 75% of nutritional needs. 2. Wt stability, skin to remain intact, labs to approach WNL.
--- NOTE | 2017-06-24 00:56 | Progress Notes ---
DATE: 06/23/2017 SUBJECTIVE: Case was discussed with staff of the patient and reviewed records. Covering for Dr. Reed. The patient is diagnosed to be mentally retarded and he is on Seroquel, which he used to be on, of his dementia medications, though most people who have mental retardation end up getting dementia at a younger age especially if they have Mongolism. He is sleeping well, eating well. He has episodes of agitation, irritability, hard to redirect at times. No side effects with the medication, no sedation, no nausea, no extrapyramidal symptoms. We will continue to work with the patient in group therapy, milieu therapy, and adjust medications as needed. JOB# [id number]
[2017-06-24] MEDS: Levothyroxine 0.075 Mg Tab PO SCH (06:48)
[2017-06-24] MEDS: FANAPT 8 MG PO SCH (08:41)
[2017-06-24] MEDS: Multivitamin Tab PO SCH (08:41)
--- NOTE | 2017-06-24 14:23 | Diagnostic Imaging Report ---
CHEST X-RAY: AP view INDICATION: Pain rule out aspiration COMPARISON: None FINDINGS: Chronic lung changes are seen with increased right basal lung markings. No focal consolidation or effusions. Heart size normal. Degenerative changes of spine are noted. There may be a hiatal hernia. IMPRESSION: Chronic lung changes with increased right basal lung markings which may be due to atelectasis, however, focal infiltrate of right lung base cannot be excluded. There may be a hiatal hernia. If necessary CT or upper GI would further clarify.
--- NOTE | 2017-06-24 18:08 | Progress Notes ---
DATE: 06/24/2017 FOLLOWUP NOTE An 82-year-old male came into the hospital with diagnosed developmental disability, possibly with dementia, this is ruled out. The patient noted to be sleeping well, eating well. Still with some episodes of agitation in a Abida chair, still picking at himself, hard to redirect at times. It is unclear if he has dementia, unable to fully assess but he is 82 years old. It is unclear if the patient is approaching is baseline. He is requiring a lot of prompting and redirection, currently on Seroquel, recent dose adjustment. ASSESSMENT: The patient remains symptoms, still on a Abida chair, but somewhat calmer, more cooperative. Dr. Davila is seeing the patient over the past few days noting he still remains somewhat restless, confused, disoriented, rambling. PLAN: We will continue to monitor. We are currently trying to address his ongoing symptoms. We will monitor and follow up. [facility]# [id number]
--- NOTE | 2017-06-24 21:08 | Internal Medicine Prog Note ---
Internal Medicine Subjective - Subjective Service Date: 06/24/17 Patient seen and examined:: with staff (HE CHOCKED ON HIS FOOD TODAY.HE IS STABLE.), without staff Patient is:: awake, in bed, confused Per staff patient has:: no adverse event Internal Medicine Objective - Results Result Diagrams: 06/08/17 09:00 06/08/17 09:00 Recent Labs: Laboratory Last Values WBC 9.2 Th/cmm (4.8-10.8) 06/08/17 09:00 RBC 3.48 Mil/cmm (3.80-5.80) L 06/08/17 09:00 Hgb 10.8 gm/dL (12-16) L 06/08/17 09:00 Hct 31.9 % (41.0-60) L 06/08/17 09:00 MCV 91.5 fl (80-99) 06/08/17 09:00 MCH 30.9 pg (27.0-31.0) 06/08/17 09:00 MCHC Differential 33.8 pg (28.0-36.0) 06/08/17 09:00 RDW 14.4 % (11.5-20.0) 06/08/17 09:00 Plt Count 317 Th/cmm (150-400) 06/08/17 09:00 MPV 6.9 fl 06/08/17 09:00 Neutrophils % 82.4 % (40.0-80.0) H 06/08/17 09:00 Lymphocytes % 9.9 % (20.0-50.0) L 06/08/17 09:00 Monocytes % 6.5 % (2.0-10.0) 06/08/17 09:00 Eosinophils % 0.5 % (0.0-5.0) 06/08/17 09:00 Basophils % 0.7 % (0.0-2.0) 06/08/17 09:00 Sodium 139 mEq/L (136-145) 06/08/17 09:00 Potassium 3.9 mEq/L (3.5-5.1) 06/08/17 09:00 Chloride 107 mEq/L (98-107) 06/08/17 09:00 Carbon Dioxide 28.5 mEq/L (21.0-31.0) 06/08/17 09:00 Anion Gap 7.4 (7.0-16.0) 06/08/17 09:00 BUN 28 mg/dL (7-25) H 06/08/17 09:00 Creatinine 1.6 mg/dL (0.7-1.3) H 06/08/17 09:00 Est GFR ( Amer) TNP 06/08/17 09:00 Est GFR (Non-Af Amer) TNP 06/08/17 09:00 BUN/Creatinine Ratio 17.5 06/08/17 09:00 Glucose 129 mg/dL (70-105) H 06/08/17 09:00 Hemoglobin A1c % 4.8 % (4.0-6.0) 06/08/17 09:00 Calcium 10.1 mg/dL (8.6-10.3) 06/08/17 09:00 Total Bilirubin 0.5 mg/dL (0.3-1.0) 06/08/17 09:00 AST 16 U/L (13-39) 06/08/17 09:00 ALT 13 U/L (7-52) 06/08/17 09:00 Alkaline Phosphatase 180 U/L (34-104) H 06/08/17 09:00 Total Protein 7.2 gm/dL (6.0-8.3) 06/08/17 09:00 Albumin 3.6 gm/dL (4.2-5.5) L 06/08/17 09:00 Globulin 3.6 gm/dL 06/08/17 09:00 Albumin/Globulin Ratio 1.0 (1.0-1.8) 06/08/17 09:00 Triglycerides 118 mg/dL (<150) 06/08/17 09:00 Cholesterol 189 mg/dL (<200) 06/08/17 09:00 LDL Cholesterol Direct 137 mg/dL (75-193) 06/08/17 09:00 HDL Cholesterol 43 mg/dL (23-92) 06/08/17 09:00 TSH 3.25 uIU/ml (0.34-5.60) 06/08/17 09:00 Urine Source CLEAN C 06/08/17 07:45 Urine Color YELLOW 06/08/17 07:45 Urine Clarity CLEAR (CLEAR) 06/08/17 07:45 Urine pH 6.0 (4.6 - 8.0) 06/08/17 07:45 Ur Specific [place] 1.020 (1.005-1.030) 06/08/17 07:45 Urine Protein NEGATIVE mg/dL (NEGATIVE) 06/08/17 07:45 Urine Glucose (UA) NEGATIVE mg/dL (NEGATIVE) 06/08/17 07:45 Urine Ketones NEGATIVE mg/dL (NEGATIVE) 06/08/17 07:45 Urine Blood NEGATIVE (NEGATIVE) 06/08/17 07:45 Urine Nitrate NEGATIVE (NEGATIVE) 06/08/17 07:45 Urine Bilirubin NEGATIVE (NEGATIVE) 06/08/17 07:45 Urine Urobilinogen 0.2 E.U./dL (0.2 - 1.0) 06/08/17 07:45 Ur Leukocyte Esterase NEGATIVE (NEGATIVE) 06/08/17 07:45 Urine RBC 0-2 /hpf (0-5) H 06/08/17 07:45 Urine WBC 0-2 /hpf (0-5) 06/08/17 07:45 Ur Epithelial Cells RARE /lpf (FEW) 06/08/17 07:45 Urine Bacteria NONE SEEN /hpf (NONE SEEN) 06/08/17 07:45 Salicylates < 25.0 mg/L (30.0-100.0) L 06/08/17 09:00 Urine Opiates Screen POSITIVE (NEGATIVE) H 06/08/17 07:45 Urine Methadone Screen NEGATIVE (NEGATIVE) 06/08/17 07:45 Acetaminophen < 10.0 ug/mL (10.0-30.0) L 06/08/17 09:00 Ur Barbiturates Screen NEGATIVE (NEGATIVE) 06/08/17 07:45 Ur Tricyclics Screen NEGATIVE (NEGATIVE) 06/08/17 07:45 Ur Phencyclidine Scrn NEGATIVE (NEGATIVE) 06/08/17 07:45 Amphetamines Screen NEGATIVE (NEGATIVE) 06/08/17 07:45 U Methamphetamines Scrn NEGATIVE (NEGATIVE) 06/08/17 07:45 U Benzodiazepines Scrn NEGATIVE (NEGATIVE) 06/08/17 07:45 U Cocaine Metab Screen NEGATIVE (NEGATIVE) 06/08/17 07:45 U Cannabinoids Screen NEGATIVE (NEGATIVE) 06/08/17 07:45 Ethyl Alcohol < 10 mg/dL (0-10) 06/08/17 09:00 RPR NONREACTIVE (NONREACTIVE) 06/08/17 09:00 - Physical Exam Vitals and I&O: Vital Signs Temp 98.2 F 06/24/17 20:21 Pulse 101 06/24/17 20:21 Resp 18 06/24/17 20:21 BP 112/59 06/24/17 20:21 Pulse Ox 98 06/24/17 20:21 Intake & Output 06/24/17 06/24/17 06/25/17 06:59 18:59 06:59 Intake Total 120 1200 320 Balance 120 1200 320 Intake: Oral 120 1200 320 Other: # Voids 3 3 1 # Bowel Movements 1 Stool Characteristics Soft Soft Active Medications: Current Medications Acetaminophen (Tylenol) 650 mg PO Q4HR PRN PRN Reason: Mild Pain / Temp above 100 Stop: 08/07/17 13:09 Last Admin: 06/23/17 15:26 Dose: 650 mg Acetaminophen/Hydrocodone Bitart ([place] 5mg/325mg) 1 tab PO Q6H PRN PRN Reason: Pain (Moderate) Stop: 08/21/17 21:46 Al Hydrox/Mg Hydrox/Simethicone (Maalox) 30 ml PO Q4HR PRN PRN Reason: GI DISTRESS Stop: 08/07/17 13:09 Albuterol Sulfate (Albuterol 2.5mg/3ml Neb Ud) 2.5 mg HHN Q8H PRN PRN Reason: Shortness of Breath Ascorbic Acid (Vitamin C) 500 mg PO DAILY [facility] Stop: 08/22/17 08:59 Last Admin: 06/24/17 08:42 Dose: 500 mg Famotidine (Pepcid) 20 mg PO DAILY [facility] Stop: 08/22/17 08:59 Last Admin: 06/24/17 08:42 Dose: 20 mg Levothyroxine Sodium (Synthroid) 0.075 mg PO QDAC [facility] Stop: 08/22/17 07:29 Last Admin: 06/24/17 06:48 Dose: 0.075 mg Lorazepam (Ativan) 0.5 mg PO Q6HR PRN PRN Reason: Agitation Stop: 08/13/17 16:06 Last Admin: 06/24/17 09:03 Dose: 0.5 mg Magnesium Hydroxide (Milk Of Magnesia) 30 ml PO HS PRN PRN Reason: Constipation Metoprolol Tartrate (Lopressor) 12.5 mg PO BID [facility] Stop: 08/22/17 08:59 Last Admin: 06/24/17 08:42 Dose: 12.5 mg Multivitamins/Vitamin C (Theragran) 1 tab PO DAILY [facility] Stop: 08/08/17 08:59 Last Admin: 06/24/17 08:41 Dose: 1 tab Ondansetron HCl (Zofran Odt) 4 mg PO Q8H PRN PRN Reason: Nausea / Vomiting Stop: 08/21/17 21:46 Oxybutynin Chloride (Ditropan) 5 mg PO BID [facility] Stop: 08/22/17 08:59 Last Admin: 06/24/17 08:41 Dose: 5 mg Fanapt (Iloperidone) (8mg Tablet) 1 PO BID [facility] Stop: 08/21/17 16:59 Last Admin: 06/24/17 08:41 Dose: 1 Quetiapine Fumarate (Seroquel) 75 mg PO HS [facility] PRN Reason: Protocol Stop: 08/21/17 20:59 Last Admin: 06/23/17 20:41 Dose: 75 mg Senna (Senna) 17.2 mg PO HS [facility] Stop: 08/22/17 20:59 Last Admin: 06/23/17 20:40 Dose: 17.2 mg Tamsulosin HCl (Flomax) 0.4 mg PO DAILY [facility] Stop: 08/22/17 08:59 Last Admin: 06/24/17 08:42 Dose: 0.4 mg Zolpidem Tartrate (Ambien) 5 mg PO HS PRN PRN Reason: Insomnia Stop: 08/07/17 13:09 Last Admin: 06/23/17 20:42 Dose: 5 mg General: demented HEENT: NC/AT, PERRLA, EOMI, anicteric sclerae, throat clear Neck: Supple, No JVD, No thyromegaly Lungs: CTAB Abdomen: soft, non-tender, non-distended Extremities: clear Neurological: no change Internal Medicine Assmt/Plan - Assessment Assessment: 1.HTN 2.HYPOTHYROIDISM. 3.LEFT EXTERNAL EAR SKIN LESION. 4.CONFUSED - Plan Plan: CONTINUE ON CURRENT MEDICATION AND DIET. Nutritional Asmnt/Malnutr-PDOC - Dietary Evaluation Malnutrition Findings (Please click <Entered> for more info): Nutritional Asmnt/Malnutrition Start: 06/14/17 09: 57 Text: Status: Complete Freq: Document 06/14/17 09:57 QUINTON (Rec: 06/14/17 10:01 QUINTON [email or web address]) Nutritional Asmnt/Malnutrition Patient General Information Nutritional Screening Moderate Risk Diagnosis psychosis Pertinent Medical Hx/Surgical Hx DJD, chronic anemia, skin lesion, agitation Subjective Information Per EMR, PO intake 50-100%, avg 75%. Per nurse note, pt only oriented to self. Current Diet Order/ Nutrition Support mech soft chopped Pertinent Medications theragran Pertinent Labs 06/08 Na 139, K 3.9, Cl 107, BUN 28, Cr 1.6, Glucose 129, A1c 4.8, Alb 3.6 Nutritional Hx/Data Height 1.78 m Height (Calculated Centimeters) 177.8 Current Weight (lbs) 68.039 kg Weight (Calculated Kilograms) 68.0 Weight (Calculated Grams) 48676.9 [place] Body Weight 166 Body Mass Index (BMI) 21.5 Weight Status Approriate GI Symptoms GI Symptoms None Last BM 06/12 x 2 Difficult in: None Skin Integrity/Comment: laceration to left ear Estimated Nutritional Goals BEE in Kcals: Using Current wt Calories/Kcals/Kg 25-30 Kcals Calculated 2444-9779 Protein: Using Current wt Protein g/k Protein Calculated 75 Fluid: ml 1875-2250ml(1ml/kcal) Nutritional Problem No current Nutrition Prob Problem N/A Intervention/Recommendation Comments 1. Continue with mech soft chopped diet as ordered. 2. Monitor PO intake, wt, labs and skin integrity 3. F/U as low risk in 7 days, 06/21 Expected Outcomes/Goals Expected Outcomes/Goals 1. PO intake to meet at least 75% of nutritional needs. 2. Wt stability, skin to remain intact, labs to approach WNL.
[2017-06-25] MEDS: Levothyroxine 0.075 Mg Tab PO SCH (07:33)
[2017-06-25] MEDS: Multivitamin Tab PO SCH (10:00)
[2017-06-25] MEDS: FANAPT 8 MG PO SCH ×2 (10:00→18:00)
--- NOTE | 2017-06-25 18:43 | Progress Notes ---
DATE: 06/25/2017 The patient seen today 06/25/2017. The patient with history of developmental disability and possibly dementia, currently a rule out, noted to be sleeping well, eating well, still with some episodes of agitation, still picking at himself at times, not answering any questions, mumbling on exam, rambling on exam. He is calm at this time. Currently on Seroquel 75 mg at bedtime. The patient with ongoing behaviors, ongoing safety concerns. ASSESSMENT: The patient remains symptomatic, still picking at self, rambling, still requiring redirection. PLAN: We will continue to monitor. Given his ongoing symptoms, not safe for discharge. We will continue to make medication adjustments. [facility]# [id number]
--- NOTE | 2017-06-25 21:32 | Internal Medicine Prog Note ---
Internal Medicine Subjective - Subjective Service Date: 06/25/17 Patient seen and examined:: with staff Patient is:: awake, in bed, confused Per staff patient has:: no adverse event Internal Medicine Objective - Results Result Diagrams: 06/08/17 09:00 06/08/17 09:00 Recent Labs: Laboratory Last Values WBC 9.2 Th/cmm (4.8-10.8) 06/08/17 09:00 RBC 3.48 Mil/cmm (3.80-5.80) L 06/08/17 09:00 Hgb 10.8 gm/dL (12-16) L 06/08/17 09:00 Hct 31.9 % (41.0-60) L 06/08/17 09:00 MCV 91.5 fl (80-99) 06/08/17 09:00 MCH 30.9 pg (27.0-31.0) 06/08/17 09:00 MCHC Differential 33.8 pg (28.0-36.0) 06/08/17 09:00 RDW 14.4 % (11.5-20.0) 06/08/17 09:00 Plt Count 317 Th/cmm (150-400) 06/08/17 09:00 MPV 6.9 fl 06/08/17 09:00 Neutrophils % 82.4 % (40.0-80.0) H 06/08/17 09:00 Lymphocytes % 9.9 % (20.0-50.0) L 06/08/17 09:00 Monocytes % 6.5 % (2.0-10.0) 06/08/17 09:00 Eosinophils % 0.5 % (0.0-5.0) 06/08/17 09:00 Basophils % 0.7 % (0.0-2.0) 06/08/17 09:00 Sodium 139 mEq/L (136-145) 06/08/17 09:00 Potassium 3.9 mEq/L (3.5-5.1) 06/08/17 09:00 Chloride 107 mEq/L (98-107) 06/08/17 09:00 Carbon Dioxide 28.5 mEq/L (21.0-31.0) 06/08/17 09:00 Anion Gap 7.4 (7.0-16.0) 06/08/17 09:00 BUN 28 mg/dL (7-25) H 06/08/17 09:00 Creatinine 1.6 mg/dL (0.7-1.3) H 06/08/17 09:00 Est GFR ( Amer) TNP 06/08/17 09:00 Est GFR (Non-Af Amer) TNP 06/08/17 09:00 BUN/Creatinine Ratio 17.5 06/08/17 09:00 Glucose 129 mg/dL (70-105) H 06/08/17 09:00 Hemoglobin A1c % 4.8 % (4.0-6.0) 06/08/17 09:00 Calcium 10.1 mg/dL (8.6-10.3) 06/08/17 09:00 Total Bilirubin 0.5 mg/dL (0.3-1.0) 06/08/17 09:00 AST 16 U/L (13-39) 06/08/17 09:00 ALT 13 U/L (7-52) 06/08/17 09:00 Alkaline Phosphatase 180 U/L (34-104) H 06/08/17 09:00 Total Protein 7.2 gm/dL (6.0-8.3) 06/08/17 09:00 Albumin 3.6 gm/dL (4.2-5.5) L 06/08/17 09:00 Globulin 3.6 gm/dL 06/08/17 09:00 Albumin/Globulin Ratio 1.0 (1.0-1.8) 06/08/17 09:00 Triglycerides 118 mg/dL (<150) 06/08/17 09:00 Cholesterol 189 mg/dL (<200) 06/08/17 09:00 LDL Cholesterol Direct 137 mg/dL (75-193) 06/08/17 09:00 HDL Cholesterol 43 mg/dL (23-92) 06/08/17 09:00 TSH 3.25 uIU/ml (0.34-5.60) 06/08/17 09:00 Urine Source CLEAN C 06/08/17 07:45 Urine Color YELLOW 06/08/17 07:45 Urine Clarity CLEAR (CLEAR) 06/08/17 07:45 Urine pH 6.0 (4.6 - 8.0) 06/08/17 07:45 Ur Specific [place] 1.020 (1.005-1.030) 06/08/17 07:45 Urine Protein NEGATIVE mg/dL (NEGATIVE) 06/08/17 07:45 Urine Glucose (UA) NEGATIVE mg/dL (NEGATIVE) 06/08/17 07:45 Urine Ketones NEGATIVE mg/dL (NEGATIVE) 06/08/17 07:45 Urine Blood NEGATIVE (NEGATIVE) 06/08/17 07:45 Urine Nitrate NEGATIVE (NEGATIVE) 06/08/17 07:45 Urine Bilirubin NEGATIVE (NEGATIVE) 06/08/17 07:45 Urine Urobilinogen 0.2 E.U./dL (0.2 - 1.0) 06/08/17 07:45 Ur Leukocyte Esterase NEGATIVE (NEGATIVE) 06/08/17 07:45 Urine RBC 0-2 /hpf (0-5) H 06/08/17 07:45 Urine WBC 0-2 /hpf (0-5) 06/08/17 07:45 Ur Epithelial Cells RARE /lpf (FEW) 06/08/17 07:45 Urine Bacteria NONE SEEN /hpf (NONE SEEN) 06/08/17 07:45 Salicylates < 25.0 mg/L (30.0-100.0) L 06/08/17 09:00 Urine Opiates Screen POSITIVE (NEGATIVE) H 06/08/17 07:45 Urine Methadone Screen NEGATIVE (NEGATIVE) 06/08/17 07:45 Acetaminophen < 10.0 ug/mL (10.0-30.0) L 06/08/17 09:00 Ur Barbiturates Screen NEGATIVE (NEGATIVE) 06/08/17 07:45 Ur Tricyclics Screen NEGATIVE (NEGATIVE) 06/08/17 07:45 Ur Phencyclidine Scrn NEGATIVE (NEGATIVE) 06/08/17 07:45 Amphetamines Screen NEGATIVE (NEGATIVE) 06/08/17 07:45 U Methamphetamines Scrn NEGATIVE (NEGATIVE) 06/08/17 07:45 U Benzodiazepines Scrn NEGATIVE (NEGATIVE) 06/08/17 07:45 U Cocaine Metab Screen NEGATIVE (NEGATIVE) 06/08/17 07:45 U Cannabinoids Screen NEGATIVE (NEGATIVE) 06/08/17 07:45 Ethyl Alcohol < 10 mg/dL (0-10) 06/08/17 09:00 RPR NONREACTIVE (NONREACTIVE) 06/08/17 09:00 - Physical Exam Vitals and I&O: Vital Signs Temp 98.8 F 06/25/17 20:23 Pulse 98 06/25/17 20:23 Resp 18 06/25/17 20:23 BP 92/62 06/25/17 20:23 Pulse Ox 100 06/25/17 20:23 Intake & Output 06/25/17 06/25/17 06/26/17 06:59 18:59 06:59 Intake Total 320 850 240 Balance 320 850 240 Intake: Oral 320 850 240 Other: # Voids 1 4 1 # Bowel Movements 1 Active Medications: Current Medications Acetaminophen (Tylenol) 650 mg PO Q4HR PRN PRN Reason: Mild Pain / Temp above 100 Stop: 08/07/17 13:09 Last Admin: 06/23/17 15:26 Dose: 650 mg Acetaminophen/Hydrocodone Bitart ([place] 5mg/325mg) 1 tab PO Q6H PRN PRN Reason: Pain (Moderate) Stop: 08/21/17 21:46 Al Hydrox/Mg Hydrox/Simethicone (Maalox) 30 ml PO Q4HR PRN PRN Reason: GI DISTRESS Stop: 08/07/17 13:09 Albuterol Sulfate (Albuterol 2.5mg/3ml Neb Ud) 2.5 mg HHN Q8H PRN PRN Reason: Shortness of Breath Ascorbic Acid (Vitamin C) 500 mg PO DAILY [facility] Stop: 08/22/17 08:59 Last Admin: 06/25/17 10:00 Dose: Not Given Escitalopram Oxalate (Lexapro) 5 mg PO DAILY [facility] PRN Reason: Protocol Stop: 08/25/17 08:59 Famotidine (Pepcid) 20 mg PO DAILY [facility] Stop: 08/22/17 08:59 Last Admin: 06/25/17 10:00 Dose: Not Given Levothyroxine Sodium (Synthroid) 0.075 mg PO QDAC [facility] Stop: 08/22/17 07:29 Last Admin: 06/25/17 07:33 Dose: 0.075 mg Lorazepam (Ativan) 0.5 mg PO Q6HR PRN PRN Reason: Agitation Stop: 08/13/17 16:06 Last Admin: 06/24/17 09:03 Dose: 0.5 mg Magnesium Hydroxide (Milk Of Magnesia) 30 ml PO HS PRN PRN Reason: Constipation Metoprolol Tartrate (Lopressor) 12.5 mg PO BID [facility] Stop: 08/22/17 08:59 Last Admin: 06/25/17 18:02 Dose: 12.5 mg Multivitamins/Vitamin C (Theragran) 1 tab PO DAILY [facility] Stop: 08/08/17 08:59 Last Admin: 06/25/17 10:00 Dose: 1 tab Ondansetron HCl (Zofran Odt) 4 mg PO Q8H PRN PRN Reason: Nausea / Vomiting Stop: 08/21/17 21:46 Oxybutynin Chloride (Ditropan) 5 mg PO BID [facility] Stop: 08/22/17 08:59 Last Admin: 06/25/17 18:00 Dose: 5 mg Fanapt (Iloperidone) (8mg Tablet) 1 PO BID [facility] Stop: 08/21/17 16:59 Last Admin: 06/25/17 18:00 Dose: 1 Quetiapine Fumarate (Seroquel) 100 mg PO HS [facility] PRN Reason: Protocol Stop: 08/24/17 15:53 Last Admin: 06/25/17 20:29 Dose: 100 mg Senna (Senna) 17.2 mg PO HS [facility] Stop: 08/22/17 20:59 Last Admin: 06/25/17 20:30 Dose: 17.2 mg Tamsulosin HCl (Flomax) 0.4 mg PO DAILY [facility] Stop: 08/22/17 08:59 Last Admin: 06/25/17 10:00 Dose: 0.4 mg Zolpidem Tartrate (Ambien) 5 mg PO HS PRN PRN Reason: Insomnia Stop: 08/07/17 13:09 Last Admin: 06/25/17 20:30 Dose: 5 mg General: demented HEENT: NC/AT, PERRLA, EOMI, anicteric sclerae, throat clear Neck: Supple, No JVD, No thyromegaly Lungs: CTAB Abdomen: soft, non-tender, non-distended Extremities: clear Neurological: no change Internal Medicine Assmt/Plan - Assessment Assessment: 1.HTN 2.HYPOTHYROIDISM. 3.LEFT EXTERNAL EAR SKIN LESION. 4.CONFUSED - Plan Plan: CONTINUE ON CURRENT MEDICATION AND DIET. Nutritional Asmnt/Malnutr-PDOC - Dietary Evaluation Malnutrition Findings (Please click <Entered> for more info): Nutritional Asmnt/Malnutrition Start: 06/14/17 09: 57 Text: Status: Complete Freq: Document 06/14/17 09:57 QUINTON (Rec: 06/14/17 10:01 QUINTON [email or web address]) Nutritional Asmnt/Malnutrition Patient General Information Nutritional Screening Moderate Risk Diagnosis psychosis Pertinent Medical Hx/Surgical Hx DJD, chronic anemia, skin lesion, agitation Subjective Information Per EMR, PO intake 50-100%, avg 75%. Per nurse note, pt only oriented to self. Current Diet Order/ Nutrition Support mech soft chopped Pertinent Medications theragran Pertinent Labs 06/08 Na 139, K 3.9, Cl 107, BUN 28, Cr 1.6, Glucose 129, A1c 4.8, Alb 3.6 Nutritional Hx/Data Height 1.78 m Height (Calculated Centimeters) 177.8 Current Weight (lbs) 68.039 kg Weight (Calculated Kilograms) 68.0 Weight (Calculated Grams) 48755.9 [facility] Body Weight 166 Body Mass Index (BMI) 21.5 Weight Status Approriate GI Symptoms GI Symptoms None Last BM 06/12 x 2 Difficult in: None Skin Integrity/Comment: laceration to left ear Estimated Nutritional Goals BEE in Kcals: Using Current wt Calories/Kcals/Kg 25-30 Kcals Calculated 9277-0037 Protein: Using Current wt Protein g/k Protein Calculated 75 Fluid: ml 1875-2250ml(1ml/kcal) Nutritional Problem No current Nutrition Prob Problem N/A Intervention/Recommendation Comments 1. Continue with [facility] soft chopped diet as ordered. 2. Monitor PO intake, wt, labs and skin integrity 3. F/U as low risk in 7 days, 06/21 Expected Outcomes/Goals Expected Outcomes/Goals 1. PO intake to meet at least 75% of nutritional needs. 2. Wt stability, skin to remain intact, labs to approach WNL.
[2017-06-26] MEDS: Levothyroxine 0.075 Mg Tab PO SCH (06:45)
[2017-06-26] MEDS: FANAPT 8 MG PO SCH ×2 (09:18→17:50)
[2017-06-26] MEDS: Multivitamin Tab PO SCH (09:25)
--- NOTE | 2017-06-26 12:05 | Internal Medicine Prog Note ---
Internal Medicine Subjective - Subjective Service Date: 06/26/17 Patient seen and examined:: with staff Patient is:: awake, in bed, confused Per staff patient has:: no adverse event Internal Medicine Objective - Results Result Diagrams: 06/08/17 09:00 06/08/17 09:00 Recent Labs: Laboratory Last Values WBC 9.2 Th/cmm (4.8-10.8) 06/08/17 09:00 RBC 3.48 Mil/cmm (3.80-5.80) L 06/08/17 09:00 Hgb 10.8 gm/dL (12-16) L 06/08/17 09:00 Hct 31.9 % (41.0-60) L 06/08/17 09:00 MCV 91.5 fl (80-99) 06/08/17 09:00 MCH 30.9 pg (27.0-31.0) 06/08/17 09:00 MCHC Differential 33.8 pg (28.0-36.0) 06/08/17 09:00 RDW 14.4 % (11.5-20.0) 06/08/17 09:00 Plt Count 317 Th/cmm (150-400) 06/08/17 09:00 MPV 6.9 fl 06/08/17 09:00 Neutrophils % 82.4 % (40.0-80.0) H 06/08/17 09:00 Lymphocytes % 9.9 % (20.0-50.0) L 06/08/17 09:00 Monocytes % 6.5 % (2.0-10.0) 06/08/17 09:00 Eosinophils % 0.5 % (0.0-5.0) 06/08/17 09:00 Basophils % 0.7 % (0.0-2.0) 06/08/17 09:00 Sodium 139 mEq/L (136-145) 06/08/17 09:00 Potassium 3.9 mEq/L (3.5-5.1) 06/08/17 09:00 Chloride 107 mEq/L (98-107) 06/08/17 09:00 Carbon Dioxide 28.5 mEq/L (21.0-31.0) 06/08/17 09:00 Anion Gap 7.4 (7.0-16.0) 06/08/17 09:00 BUN 28 mg/dL (7-25) H 06/08/17 09:00 Creatinine 1.6 mg/dL (0.7-1.3) H 06/08/17 09:00 Est GFR ( Amer) TNP 06/08/17 09:00 Est GFR (Non-Af Amer) TNP 06/08/17 09:00 BUN/Creatinine Ratio 17.5 06/08/17 09:00 Glucose 129 mg/dL (70-105) H 06/08/17 09:00 Hemoglobin A1c % 4.8 % (4.0-6.0) 06/08/17 09:00 Calcium 10.1 mg/dL (8.6-10.3) 06/08/17 09:00 Total Bilirubin 0.5 mg/dL (0.3-1.0) 06/08/17 09:00 AST 16 U/L (13-39) 06/08/17 09:00 ALT 13 U/L (7-52) 06/08/17 09:00 Alkaline Phosphatase 180 U/L (34-104) H 06/08/17 09:00 Total Protein 7.2 gm/dL (6.0-8.3) 06/08/17 09:00 Albumin 3.6 gm/dL (4.2-5.5) L 06/08/17 09:00 Globulin 3.6 gm/dL 06/08/17 09:00 Albumin/Globulin Ratio 1.0 (1.0-1.8) 06/08/17 09:00 Triglycerides 118 mg/dL (<150) 06/08/17 09:00 Cholesterol 189 mg/dL (<200) 06/08/17 09:00 LDL Cholesterol Direct 137 mg/dL (75-193) 06/08/17 09:00 HDL Cholesterol 43 mg/dL (23-92) 06/08/17 09:00 TSH 3.25 uIU/ml (0.34-5.60) 06/08/17 09:00 Urine Source CLEAN C 06/08/17 07:45 Urine Color YELLOW 06/08/17 07:45 Urine Clarity CLEAR (CLEAR) 06/08/17 07:45 Urine pH 6.0 (4.6 - 8.0) 06/08/17 07:45 Ur Specific [place] 1.020 (1.005-1.030) 06/08/17 07:45 Urine Protein NEGATIVE mg/dL (NEGATIVE) 06/08/17 07:45 Urine Glucose (UA) NEGATIVE mg/dL (NEGATIVE) 06/08/17 07:45 Urine Ketones NEGATIVE mg/dL (NEGATIVE) 06/08/17 07:45 Urine Blood NEGATIVE (NEGATIVE) 06/08/17 07:45 Urine Nitrate NEGATIVE (NEGATIVE) 06/08/17 07:45 Urine Bilirubin NEGATIVE (NEGATIVE) 06/08/17 07:45 Urine Urobilinogen 0.2 E.U./dL (0.2 - 1.0) 06/08/17 07:45 Ur Leukocyte Esterase NEGATIVE (NEGATIVE) 06/08/17 07:45 Urine RBC 0-2 /hpf (0-5) H 06/08/17 07:45 Urine WBC 0-2 /hpf (0-5) 06/08/17 07:45 Ur Epithelial Cells RARE /lpf (FEW) 06/08/17 07:45 Urine Bacteria NONE SEEN /hpf (NONE SEEN) 06/08/17 07:45 Salicylates < 25.0 mg/L (30.0-100.0) L 06/08/17 09:00 Urine Opiates Screen POSITIVE (NEGATIVE) H 06/08/17 07:45 Urine Methadone Screen NEGATIVE (NEGATIVE) 06/08/17 07:45 Acetaminophen < 10.0 ug/mL (10.0-30.0) L 06/08/17 09:00 Ur Barbiturates Screen NEGATIVE (NEGATIVE) 06/08/17 07:45 Ur Tricyclics Screen NEGATIVE (NEGATIVE) 06/08/17 07:45 Ur Phencyclidine Scrn NEGATIVE (NEGATIVE) 06/08/17 07:45 Amphetamines Screen NEGATIVE (NEGATIVE) 06/08/17 07:45 U Methamphetamines Scrn NEGATIVE (NEGATIVE) 06/08/17 07:45 U Benzodiazepines Scrn NEGATIVE (NEGATIVE) 06/08/17 07:45 U Cocaine Metab Screen NEGATIVE (NEGATIVE) 06/08/17 07:45 U Cannabinoids Screen NEGATIVE (NEGATIVE) 06/08/17 07:45 Ethyl Alcohol < 10 mg/dL (0-10) 06/08/17 09:00 RPR NONREACTIVE (NONREACTIVE) 06/08/17 09:00 - Physical Exam Vitals and I&O: Vital Signs Temp 96.9 F 06/26/17 06:35 Pulse 86 06/26/17 09:27 Resp 20 06/26/17 06:35 BP 129/70 06/26/17 09:27 Pulse Ox 98 06/26/17 06:35 Intake & Output 06/25/17 06/26/17 06/26/17 18:59 06:59 18:59 Intake Total 850 480 Output Total 1 Balance 850 479 Intake: Oral 850 480 Output: Stool 1 Other: # Voids 4 1 # Bowel Movements 1 Active Medications: Current Medications Acetaminophen (Tylenol) 650 mg PO Q4HR PRN PRN Reason: Mild Pain / Temp above 100 Stop: 08/07/17 13:09 Last Admin: 06/23/17 15:26 Dose: 650 mg Acetaminophen/Hydrocodone Bitart ([place] 5mg/325mg) 1 tab PO Q6H PRN PRN Reason: Pain (Moderate) Stop: 08/21/17 21:46 Al Hydrox/Mg Hydrox/Simethicone (Maalox) 30 ml PO Q4HR PRN PRN Reason: GI DISTRESS Stop: 08/07/17 13:09 Albuterol Sulfate (Albuterol 2.5mg/3ml Neb Ud) 2.5 mg HHN Q8H PRN PRN Reason: Shortness of Breath Ascorbic Acid (Vitamin C) 500 mg PO DAILY COUNTS INCLUDE 234 BEDS AT THE [facility] Stop: 08/22/17 08:59 Last Admin: 06/26/17 09:25 Dose: 500 mg Escitalopram Oxalate (Lexapro) 5 mg PO DAILY [facility] PRN Reason: Protocol Stop: 08/25/17 08:59 Famotidine (Pepcid) 20 mg PO DAILY COUNTS INCLUDE 234 BEDS AT THE [facility] Stop: 08/22/17 08:59 Last Admin: 06/26/17 09:24 Dose: 20 mg Levothyroxine Sodium (Synthroid) 0.075 mg PO QDAC [facility] Stop: 08/22/17 07:29 Last Admin: 06/26/17 06:45 Dose: 0.075 mg Lorazepam (Ativan) 0.5 mg PO Q6HR PRN PRN Reason: Agitation Stop: 08/13/17 16:06 Last Admin: 06/24/17 09:03 Dose: 0.5 mg Magnesium Hydroxide (Milk Of Magnesia) 30 ml PO HS PRN PRN Reason: Constipation Metoprolol Tartrate (Lopressor) 12.5 mg PO BID COUNTS INCLUDE 234 BEDS AT THE [facility] Stop: 08/22/17 08:59 Last Admin: 06/26/17 09:27 Dose: 12.5 mg Multivitamins/Vitamin C (Theragran) 1 tab PO DAILY [facility] Stop: 08/08/17 08:59 Last Admin: 06/26/17 09:25 Dose: 1 tab Ondansetron HCl (Zofran Odt) 4 mg PO Q8H PRN PRN Reason: Nausea / Vomiting Stop: 08/21/17 21:46 Oxybutynin Chloride (Ditropan) 5 mg PO BID COUNTS INCLUDE 234 BEDS AT THE [facility] Stop: 08/22/17 08:59 Last Admin: 06/26/17 09:23 Dose: 5 mg Fanapt (Iloperidone) (8mg Tablet) 1 PO BID COUNTS INCLUDE 234 BEDS AT THE [facility] Stop: 08/21/17 16:59 Last Admin: 06/26/17 09:18 Dose: 1 Quetiapine Fumarate (Seroquel) 100 mg PO HS COUNTS INCLUDE 234 BEDS AT THE [facility] PRN Reason: Protocol Stop: 08/24/17 15:53 Last Admin: 06/25/17 20:29 Dose: 100 mg Senna (Senna) 17.2 mg PO HS COUNTS INCLUDE 234 BEDS AT THE [facility] Stop: 08/22/17 20:59 Last Admin: 06/25/17 20:30 Dose: 17.2 mg Tamsulosin HCl (Flomax) 0.4 mg PO DAILY COUNTS INCLUDE 234 BEDS AT THE [facility] Stop: 08/22/17 08:59 Last Admin: 06/26/17 09:20 Dose: 0.4 mg Zolpidem Tartrate (Ambien) 5 mg PO HS PRN PRN Reason: Insomnia Stop: 08/07/17 13:09 Last Admin: 06/25/17 20:30 Dose: 5 mg General: demented HEENT: NC/AT, PERRLA, EOMI, anicteric sclerae, throat clear Neck: Supple, No JVD, No thyromegaly Lungs: CTAB Abdomen: soft, non-tender, non-distended Extremities: clear Neurological: no change Internal Medicine Assmt/Plan - Assessment Assessment: 1.HTN 2.HYPOTHYROIDISM. 3.LEFT EXTERNAL EAR SKIN LESION. 4.CONFUSED - Plan Plan: CONTINUE ON CURRENT MEDICATION AND DIET. Nutritional Asmnt/Malnutr-PDOC - Dietary Evaluation Malnutrition Findings (Please click <Entered> for more info): Nutritional Asmnt/Malnutrition Start: 06/14/17 09: 57 Text: Status: Complete Freq: Document 06/14/17 09:57 QUINTON (Rec: 06/14/17 10:01 QUINTON [email or web address]) Nutritional Asmnt/Malnutrition Patient General Information Nutritional Screening Moderate Risk Diagnosis psychosis Pertinent Medical Hx/Surgical Hx DJD, chronic anemia, skin lesion, agitation Subjective Information Per EMR, PO intake 50-100%, avg 75%. Per nurse note, pt only oriented to self. Current Diet Order/ Nutrition Support [facility] soft chopped Pertinent Medications theragran Pertinent Labs 06/08 Na 139, K 3.9, Cl 107, BUN 28, Cr 1.6, Glucose 129, A1c 4.8, Alb 3.6 Nutritional Hx/Data Height 1.78 m Height (Calculated Centimeters) 177.8 Current Weight (lbs) 68.039 kg Weight (Calculated Kilograms) 68.0 Weight (Calculated Grams) 41144.9 [place] Body Weight 166 Body Mass Index (BMI) 21.5 Weight Status Approriate GI Symptoms GI Symptoms None Last BM 06/12 x 2 Difficult in: None Skin Integrity/Comment: laceration to left ear Estimated Nutritional Goals BEE in Kcals: Using Current wt Calories/Kcals/Kg 25-30 Kcals Calculated 5478-0305 Protein: Using Current wt Protein g/k Protein Calculated 75 Fluid: ml 1875-2250ml(1ml/kcal) Nutritional Problem No current Nutrition Prob Problem N/A Intervention/Recommendation Comments 1. Continue with [facility] soft chopped diet as ordered. 2. Monitor PO intake, wt, labs and skin integrity 3. F/U as low risk in 7 days, 06/21 Expected Outcomes/Goals Expected Outcomes/Goals 1. PO intake to meet at least 75% of nutritional needs. 2. Wt stability, skin to remain intact, labs to approach WNL.
--- NOTE | 2017-06-26 22:13 | Progress Notes ---
DATE: SUBJECTIVE: The patient was seen and evaluated. The patient's chart reviewed. This is Dr. Proctor covering for Dr. Reed. This is an 82-year-old male, confused, disorganized, disoriented, who initially came in very distracted, disengaged, in a [place] chair. HOSPITAL COURSE: He responded to treatment and the patient has been initiated on Lexapro 5 mg as early as and on Seroquel augmented on the 200 mg. Nursing staff reported the patient mostly will be disengaged, withdrawn, minimally interactive. Today on [id number] evaluation, the patient was and very depressed, disengaged, is withdrawn, minimally interactive, mumbles on exam. ASSESSMENT AND PLAN: The patient continues to be still picking himself, disengaged, withdrawn. We will continue with the current recent addition of medications to continue to target the patient's self picking behavior, rambling and requires lot of redirections in simple ADL. JOB# [id number]
[2017-06-27] MEDS: Levothyroxine 0.075 Mg Tab PO SCH (06:42)
[2017-06-27] MEDS: Multivitamin Tab PO SCH (08:44)
[2017-06-27] MEDS: FANAPT 8 MG PO SCH ×2 (08:45→16:24)
[2017-06-27] MEDS: Escitalopram Oxalate 5 mg Tab PO SCH (09:02)
--- NOTE | 2017-06-27 20:08 | Internal Medicine Prog Note ---
Internal Medicine Subjective - Subjective Service Date: 06/27/17 Patient seen and examined:: with staff (HE IS STILL CONFUSED AND AGITATED) Patient is:: awake, in bed, confused Per staff patient has:: no adverse event Internal Medicine Objective - Results Result Diagrams: 06/08/17 09:00 06/08/17 09:00 Recent Labs: Laboratory Last Values WBC 9.2 Th/cmm (4.8-10.8) 06/08/17 09:00 RBC 3.48 Mil/cmm (3.80-5.80) L 06/08/17 09:00 Hgb 10.8 gm/dL (12-16) L 06/08/17 09:00 Hct 31.9 % (41.0-60) L 06/08/17 09:00 MCV 91.5 fl (80-99) 06/08/17 09:00 MCH 30.9 pg (27.0-31.0) 06/08/17 09:00 MCHC Differential 33.8 pg (28.0-36.0) 06/08/17 09:00 RDW 14.4 % (11.5-20.0) 06/08/17 09:00 Plt Count 317 Th/cmm (150-400) 06/08/17 09:00 MPV 6.9 fl 06/08/17 09:00 Neutrophils % 82.4 % (40.0-80.0) H 06/08/17 09:00 Lymphocytes % 9.9 % (20.0-50.0) L 06/08/17 09:00 Monocytes % 6.5 % (2.0-10.0) 06/08/17 09:00 Eosinophils % 0.5 % (0.0-5.0) 06/08/17 09:00 Basophils % 0.7 % (0.0-2.0) 06/08/17 09:00 Sodium 139 mEq/L (136-145) 06/08/17 09:00 Potassium 3.9 mEq/L (3.5-5.1) 06/08/17 09:00 Chloride 107 mEq/L (98-107) 06/08/17 09:00 Carbon Dioxide 28.5 mEq/L (21.0-31.0) 06/08/17 09:00 Anion Gap 7.4 (7.0-16.0) 06/08/17 09:00 BUN 28 mg/dL (7-25) H 06/08/17 09:00 Creatinine 1.6 mg/dL (0.7-1.3) H 06/08/17 09:00 Est GFR ( Amer) TNP 06/08/17 09:00 Est GFR (Non-Af Amer) TNP 06/08/17 09:00 BUN/Creatinine Ratio 17.5 06/08/17 09:00 Glucose 129 mg/dL (70-105) H 06/08/17 09:00 Hemoglobin A1c % 4.8 % (4.0-6.0) 06/08/17 09:00 Calcium 10.1 mg/dL (8.6-10.3) 06/08/17 09:00 Total Bilirubin 0.5 mg/dL (0.3-1.0) 06/08/17 09:00 AST 16 U/L (13-39) 06/08/17 09:00 ALT 13 U/L (7-52) 06/08/17 09:00 Alkaline Phosphatase 180 U/L (34-104) H 06/08/17 09:00 Total Protein 7.2 gm/dL (6.0-8.3) 06/08/17 09:00 Albumin 3.6 gm/dL (4.2-5.5) L 06/08/17 09:00 Globulin 3.6 gm/dL 06/08/17 09:00 Albumin/Globulin Ratio 1.0 (1.0-1.8) 06/08/17 09:00 Triglycerides 118 mg/dL (<150) 06/08/17 09:00 Cholesterol 189 mg/dL (<200) 06/08/17 09:00 LDL Cholesterol Direct 137 mg/dL (75-193) 06/08/17 09:00 HDL Cholesterol 43 mg/dL (23-92) 06/08/17 09:00 TSH 3.25 uIU/ml (0.34-5.60) 06/08/17 09:00 Urine Source CLEAN C 06/08/17 07:45 Urine Color YELLOW 06/08/17 07:45 Urine Clarity CLEAR (CLEAR) 06/08/17 07:45 Urine pH 6.0 (4.6 - 8.0) 06/08/17 07:45 Ur Specific [place] 1.020 (1.005-1.030) 06/08/17 07:45 Urine Protein NEGATIVE mg/dL (NEGATIVE) 06/08/17 07:45 Urine Glucose (UA) NEGATIVE mg/dL (NEGATIVE) 06/08/17 07:45 Urine Ketones NEGATIVE mg/dL (NEGATIVE) 06/08/17 07:45 Urine Blood NEGATIVE (NEGATIVE) 06/08/17 07:45 Urine Nitrate NEGATIVE (NEGATIVE) 06/08/17 07:45 Urine Bilirubin NEGATIVE (NEGATIVE) 06/08/17 07:45 Urine Urobilinogen 0.2 E.U./dL (0.2 - 1.0) 06/08/17 07:45 Ur Leukocyte Esterase NEGATIVE (NEGATIVE) 06/08/17 07:45 Urine RBC 0-2 /hpf (0-5) H 06/08/17 07:45 Urine WBC 0-2 /hpf (0-5) 06/08/17 07:45 Ur Epithelial Cells RARE /lpf (FEW) 06/08/17 07:45 Urine Bacteria NONE SEEN /hpf (NONE SEEN) 06/08/17 07:45 Salicylates < 25.0 mg/L (30.0-100.0) L 06/08/17 09:00 Urine Opiates Screen POSITIVE (NEGATIVE) H 06/08/17 07:45 Urine Methadone Screen NEGATIVE (NEGATIVE) 06/08/17 07:45 Acetaminophen < 10.0 ug/mL (10.0-30.0) L 06/08/17 09:00 Ur Barbiturates Screen NEGATIVE (NEGATIVE) 06/08/17 07:45 Ur Tricyclics Screen NEGATIVE (NEGATIVE) 06/08/17 07:45 Ur Phencyclidine Scrn NEGATIVE (NEGATIVE) 06/08/17 07:45 Amphetamines Screen NEGATIVE (NEGATIVE) 06/08/17 07:45 U Methamphetamines Scrn NEGATIVE (NEGATIVE) 06/08/17 07:45 U Benzodiazepines Scrn NEGATIVE (NEGATIVE) 06/08/17 07:45 U Cocaine Metab Screen NEGATIVE (NEGATIVE) 06/08/17 07:45 U Cannabinoids Screen NEGATIVE (NEGATIVE) 06/08/17 07:45 Ethyl Alcohol < 10 mg/dL (0-10) 06/08/17 09:00 RPR NONREACTIVE (NONREACTIVE) 06/08/17 09:00 - Physical Exam Vitals and I&O: Vital Signs Temp 97.4 F 06/27/17 19:39 Pulse 86 06/27/17 19:39 Resp 18 06/27/17 19:39 BP 127/64 06/27/17 19:39 Pulse Ox 98 06/27/17 19:39 Intake & Output 06/27/17 06/27/17 06/28/17 06:59 18:59 06:59 Intake Total 480 1600 0 Balance 480 1600 0 Intake: Oral 480 1600 0 Other: # Voids 1 4 3 # Bowel Movements 1 1 Stool Characteristics Soft Active Medications: Current Medications Acetaminophen (Tylenol) 650 mg PO Q4HR PRN PRN Reason: Mild Pain / Temp above 100 Stop: 08/07/17 13:09 Last Admin: 06/23/17 15:26 Dose: 650 mg Acetaminophen/Hydrocodone Bitart ([place] 5mg/325mg) 1 tab PO Q6H PRN PRN Reason: Pain (Moderate) Stop: 08/21/17 21:46 Al Hydrox/Mg Hydrox/Simethicone (Maalox) 30 ml PO Q4HR PRN PRN Reason: GI DISTRESS Stop: 08/07/17 13:09 Albuterol Sulfate (Albuterol 2.5mg/3ml Neb Ud) 2.5 mg HHN Q8H PRN PRN Reason: Shortness of Breath Ascorbic Acid (Vitamin C) 500 mg PO DAILY [facility] Stop: 08/22/17 08:59 Last Admin: 06/27/17 08:44 Dose: 500 mg Escitalopram Oxalate (Lexapro) 5 mg PO DAILY [facility] PRN Reason: Protocol Stop: 08/25/17 08:59 Last Admin: 06/27/17 09:02 Dose: 5 mg Famotidine (Pepcid) 20 mg PO DAILY [facility] Stop: 08/22/17 08:59 Last Admin: 06/27/17 08:44 Dose: 20 mg Levothyroxine Sodium (Synthroid) 0.075 mg PO QDAC [facility] Stop: 08/22/17 07:29 Last Admin: 06/27/17 06:42 Dose: 0.075 mg Lorazepam (Ativan) 0.5 mg PO Q6HR PRN PRN Reason: Agitation Stop: 08/13/17 16:06 Last Admin: 06/27/17 16:24 Dose: 0.5 mg Magnesium Hydroxide (Milk Of Magnesia) 30 ml PO HS PRN PRN Reason: Constipation Metoprolol Tartrate (Lopressor) 12.5 mg PO BID [facility] Stop: 08/22/17 08:59 Last Admin: 06/27/17 16:23 Dose: Not Given Multivitamins/Vitamin C (Theragran) 1 tab PO DAILY [facility] Stop: 08/08/17 08:59 Last Admin: 06/27/17 08:44 Dose: 1 tab Ondansetron HCl (Zofran Odt) 4 mg PO Q8H PRN PRN Reason: Nausea / Vomiting Stop: 08/21/17 21:46 Oxybutynin Chloride (Ditropan) 5 mg PO BID [facility] Stop: 08/22/17 08:59 Last Admin: 06/27/17 16:25 Dose: 5 mg Fanapt (Iloperidone) (8mg Tablet) 1 PO BID [facility] Stop: 08/21/17 16:59 Last Admin: 06/27/17 16:24 Dose: 1 Quetiapine Fumarate (Seroquel) 100 mg PO HS [facility] PRN Reason: Protocol Stop: 08/24/17 15:53 Last Admin: 06/26/17 20:38 Dose: 100 mg Senna (Senna) 17.2 mg PO HS [facility] Stop: 08/22/17 20:59 Last Admin: 06/26/17 20:37 Dose: 17.2 mg Tamsulosin HCl (Flomax) 0.4 mg PO DAILY [facility] Stop: 08/22/17 08:59 Last Admin: 06/27/17 08:44 Dose: 0.4 mg Zolpidem Tartrate (Ambien) 5 mg PO HS PRN PRN Reason: Insomnia Stop: 08/07/17 13:09 Last Admin: 06/26/17 20:37 Dose: 5 mg General: demented HEENT: NC/AT, PERRLA, EOMI, anicteric sclerae, throat clear Neck: Supple, No JVD, No thyromegaly Lungs: CTAB Abdomen: soft, non-tender, non-distended Extremities: clear Neurological: no change Internal Medicine Assmt/Plan - Assessment Assessment: 1.HTN 2.HYPOTHYROIDISM. 3.LEFT EXTERNAL EAR SKIN LESION. 4.CONFUSED - Plan Plan: CONTINUE ON CURRENT MEDICATION AND DIET. Nutritional Asmnt/Malnutr-PDOC - Dietary Evaluation Malnutrition Findings (Please click <Entered> for more info): Nutritional Asmnt/Malnutrition Start: 06/14/17 09: 57 Text: Status: Complete Freq: Document 06/14/17 09:57 QUINTON (Rec: 06/14/17 10:01 GILLESKATERIN [email or web address]) Nutritional Asmnt/Malnutrition Patient General Information Nutritional Screening Moderate Risk Diagnosis psychosis Pertinent Medical Hx/Surgical Hx DJD, chronic anemia, skin lesion, agitation Subjective Information Per EMR, PO intake 50-100%, avg 75%. Per nurse note, pt only oriented to self. Current Diet Order/ Nutrition Support [facility] soft chopped Pertinent Medications theragran Pertinent Labs 06/08 Na 139, K 3.9, Cl 107, BUN 28, Cr 1.6, Glucose 129, A1c 4.8, Alb 3.6 Nutritional Hx/Data Height 1.78 m Height (Calculated Centimeters) 177.8 Current Weight (lbs) 68.039 kg Weight (Calculated Kilograms) 68.0 Weight (Calculated Grams) 46430.9 [place] Body Weight 166 Body Mass Index (BMI) 21.5 Weight Status Approriate GI Symptoms GI Symptoms None Last BM 06/12 x 2 Difficult in: None Skin Integrity/Comment: laceration to left ear Estimated Nutritional Goals BEE in Kcals: Using Current wt Calories/Kcals/Kg 25-30 Kcals Calculated 1898-3981 Protein: Using Current wt Protein g/k Protein Calculated 75 Fluid: ml 1875-2250ml(1ml/kcal) Nutritional Problem No current Nutrition Prob Problem N/A Intervention/Recommendation Comments 1. Continue with [facility] soft chopped diet as ordered. 2. Monitor PO intake, wt, labs and skin integrity 3. F/U as low risk in 7 days, 06/21 Expected Outcomes/Goals Expected Outcomes/Goals 1. PO intake to meet at least 75% of nutritional needs. 2. Wt stability, skin to remain intact, labs to approach WNL.
--- NOTE | 2017-06-27 23:19 | Progress Notes ---
DATE: 06/27/2017 Dr. Proctor is Covering for Dr. Schneider. SUBJECTIVE: The patient was seen and evaluated. Today on [id number] evaluation, the patient becomes easily irritable, starts screaming "get the fuck out of my room," very withdrawn. MENTAL STATUS EXAMINATION: Paranoid, delusional. ASSESSMENT AND PLAN: The patient is an 82-year-old male, appears to be disorganized and easily triggered. Besides being triggered, the patient's mood is withdrawn since ____ of his room. We will continue with the current medication regimen to continue to target the patient's severe psychotic symptoms. JOB# [id number]
[2017-06-28] MEDS: Levothyroxine 0.075 Mg Tab PO SCH (06:46)
[2017-06-28] MEDS: Escitalopram Oxalate 5 mg Tab PO SCH (08:21)
[2017-06-28] MEDS: Multivitamin Tab PO SCH (08:23)
[2017-06-28] MEDS: FANAPT 8 MG PO SCH ×2 (09:27→18:00)
[2017-06-28] MEDS ORDERED: Aspirin 81mg Chewable Tab PO SCH (17:15)
--- NOTE | 2017-06-28 18:20 | Progress Notes ---
DATE: 06/28/2017 SUBJECTIVE: The patient is currently in the Geropsych Unit, irritable, yelling, and screaming at times, highly withdrawn in a [place] chair demanding to leave, rambling nonsensically, cursing mostly "get out, get out." The patient is unruly, impulsive, and unpredictable. He is taking his medications. Staff is noting he continues with behavioral disturbances, needing a lot of redirection and prompting. MENTAL STATUS EXAMINATION: In a [place] chair, agitated. There is a bandage over his ear now, so he cannot pick at it anymore. He remains paranoid, upset and aggressive. PLAN: We will continue to monitor. We will continue to titrate and adjust medications. Given his ongoing behaviors, I think he is not safe for discharge at this time. JOB# [id number]
--- NOTE | 2017-06-28 23:25 | Internal Medicine Prog Note ---
Internal Medicine Subjective - Subjective Service Date: 06/28/17 Patient seen and examined:: with staff (THE PATIENT HAD ONE EPSOD OF CHEST PAIN.EKG IS DONE.NOT SIGNIFICANT FOR ISCHEMIA.) Patient is:: awake, in bed, confused Per staff patient has:: no adverse event Internal Medicine Objective - Results Result Diagrams: 06/08/17 09:00 06/08/17 09:00 Recent Labs: Laboratory Last Values WBC 9.2 Th/cmm (4.8-10.8) 06/08/17 09:00 RBC 3.48 Mil/cmm (3.80-5.80) L 06/08/17 09:00 Hgb 10.8 gm/dL (12-16) L 06/08/17 09:00 Hct 31.9 % (41.0-60) L 06/08/17 09:00 MCV 91.5 fl (80-99) 06/08/17 09:00 MCH 30.9 pg (27.0-31.0) 06/08/17 09:00 MCHC Differential 33.8 pg (28.0-36.0) 06/08/17 09:00 RDW 14.4 % (11.5-20.0) 06/08/17 09:00 Plt Count 317 Th/cmm (150-400) 06/08/17 09:00 MPV 6.9 fl 06/08/17 09:00 Neutrophils % 82.4 % (40.0-80.0) H 06/08/17 09:00 Lymphocytes % 9.9 % (20.0-50.0) L 06/08/17 09:00 Monocytes % 6.5 % (2.0-10.0) 06/08/17 09:00 Eosinophils % 0.5 % (0.0-5.0) 06/08/17 09:00 Basophils % 0.7 % (0.0-2.0) 06/08/17 09:00 Sodium 139 mEq/L (136-145) 06/08/17 09:00 Potassium 3.9 mEq/L (3.5-5.1) 06/08/17 09:00 Chloride 107 mEq/L (98-107) 06/08/17 09:00 Carbon Dioxide 28.5 mEq/L (21.0-31.0) 06/08/17 09:00 Anion Gap 7.4 (7.0-16.0) 06/08/17 09:00 BUN 28 mg/dL (7-25) H 06/08/17 09:00 Creatinine 1.6 mg/dL (0.7-1.3) H 06/08/17 09:00 Est GFR ( Amer) TNP 06/08/17 09:00 Est GFR (Non-Af Amer) TNP 06/08/17 09:00 BUN/Creatinine Ratio 17.5 06/08/17 09:00 Glucose 129 mg/dL (70-105) H 06/08/17 09:00 Hemoglobin A1c % 4.8 % (4.0-6.0) 06/08/17 09:00 Calcium 10.1 mg/dL (8.6-10.3) 06/08/17 09:00 Total Bilirubin 0.5 mg/dL (0.3-1.0) 06/08/17 09:00 AST 16 U/L (13-39) 06/08/17 09:00 ALT 13 U/L (7-52) 06/08/17 09:00 Alkaline Phosphatase 180 U/L (34-104) H 06/08/17 09:00 Total Protein 7.2 gm/dL (6.0-8.3) 06/08/17 09:00 Albumin 3.6 gm/dL (4.2-5.5) L 06/08/17 09:00 Globulin 3.6 gm/dL 06/08/17 09:00 Albumin/Globulin Ratio 1.0 (1.0-1.8) 06/08/17 09:00 Triglycerides 118 mg/dL (<150) 06/08/17 09:00 Cholesterol 189 mg/dL (<200) 06/08/17 09:00 LDL Cholesterol Direct 137 mg/dL (75-193) 06/08/17 09:00 HDL Cholesterol 43 mg/dL (23-92) 06/08/17 09:00 TSH 3.25 uIU/ml (0.34-5.60) 06/08/17 09:00 Urine Source CLEAN C 06/08/17 07:45 Urine Color YELLOW 06/08/17 07:45 Urine Clarity CLEAR (CLEAR) 06/08/17 07:45 Urine pH 6.0 (4.6 - 8.0) 06/08/17 07:45 Ur Specific [place] 1.020 (1.005-1.030) 06/08/17 07:45 Urine Protein NEGATIVE mg/dL (NEGATIVE) 06/08/17 07:45 Urine Glucose (UA) NEGATIVE mg/dL (NEGATIVE) 06/08/17 07:45 Urine Ketones NEGATIVE mg/dL (NEGATIVE) 06/08/17 07:45 Urine Blood NEGATIVE (NEGATIVE) 06/08/17 07:45 Urine Nitrate NEGATIVE (NEGATIVE) 06/08/17 07:45 Urine Bilirubin NEGATIVE (NEGATIVE) 06/08/17 07:45 Urine Urobilinogen 0.2 E.U./dL (0.2 - 1.0) 06/08/17 07:45 Ur Leukocyte Esterase NEGATIVE (NEGATIVE) 06/08/17 07:45 Urine RBC 0-2 /hpf (0-5) H 06/08/17 07:45 Urine WBC 0-2 /hpf (0-5) 06/08/17 07:45 Ur Epithelial Cells RARE /lpf (FEW) 06/08/17 07:45 Urine Bacteria NONE SEEN /hpf (NONE SEEN) 06/08/17 07:45 Salicylates < 25.0 mg/L (30.0-100.0) L 06/08/17 09:00 Urine Opiates Screen POSITIVE (NEGATIVE) H 06/08/17 07:45 Urine Methadone Screen NEGATIVE (NEGATIVE) 06/08/17 07:45 Acetaminophen < 10.0 ug/mL (10.0-30.0) L 06/08/17 09:00 Ur Barbiturates Screen NEGATIVE (NEGATIVE) 06/08/17 07:45 Ur Tricyclics Screen NEGATIVE (NEGATIVE) 06/08/17 07:45 Ur Phencyclidine Scrn NEGATIVE (NEGATIVE) 06/08/17 07:45 Amphetamines Screen NEGATIVE (NEGATIVE) 06/08/17 07:45 U Methamphetamines Scrn NEGATIVE (NEGATIVE) 06/08/17 07:45 U Benzodiazepines Scrn NEGATIVE (NEGATIVE) 06/08/17 07:45 U Cocaine Metab Screen NEGATIVE (NEGATIVE) 06/08/17 07:45 U Cannabinoids Screen NEGATIVE (NEGATIVE) 06/08/17 07:45 Ethyl Alcohol < 10 mg/dL (0-10) 06/08/17 09:00 RPR NONREACTIVE (NONREACTIVE) 06/08/17 09:00 - Physical Exam Vitals and I&O: Vital Signs Temp 98.6 F 06/28/17 19:58 Pulse 80 06/28/17 19:58 Resp 18 06/28/17 20:00 BP 106/63 06/28/17 19:58 Pulse Ox 98 06/28/17 19:58 Intake & Output 06/28/17 06/28/17 06/29/17 06:59 18:59 06:59 Intake Total 120 900 240 Balance 120 900 240 Intake: Oral 120 900 240 Other: # Voids 2 4 1 # Bowel Movements 0 1 Stool Characteristics Soft Soft Soft Active Medications: Current Medications Acetaminophen (Tylenol) 650 mg PO Q4HR PRN PRN Reason: Mild Pain / Temp above 100 Stop: 08/07/17 13:09 Last Admin: 06/23/17 15:26 Dose: 650 mg Acetaminophen/Hydrocodone Bitart ([place] 5mg/325mg) 1 tab PO Q6H PRN PRN Reason: Pain (Moderate) Stop: 08/21/17 21:46 Al Hydrox/Mg Hydrox/Simethicone (Maalox) 30 ml PO Q4HR PRN PRN Reason: GI DISTRESS Stop: 08/07/17 13:09 Albuterol Sulfate (Albuterol 2.5mg/3ml Neb Ud) 2.5 mg HHN Q8H PRN PRN Reason: Shortness of Breath Ascorbic Acid (Vitamin C) 500 mg PO DAILY [facility] Stop: 08/22/17 08:59 Last Admin: 06/28/17 08:47 Dose: 500 mg Escitalopram Oxalate (Lexapro) 5 mg PO DAILY [facility] PRN Reason: Protocol Stop: 08/25/17 08:59 Last Admin: 06/28/17 08:21 Dose: 5 mg Famotidine (Pepcid) 20 mg PO DAILY [facility] Stop: 08/22/17 08:59 Last Admin: 06/28/17 08:22 Dose: 20 mg Levothyroxine Sodium (Synthroid) 0.075 mg PO QDAC [facility] Stop: 08/22/17 07:29 Last Admin: 06/28/17 06:46 Dose: 0.075 mg Lorazepam (Ativan) 0.5 mg PO Q6HR PRN PRN Reason: Agitation Stop: 08/13/17 16:06 Last Admin: 06/27/17 16:24 Dose: 0.5 mg Magnesium Hydroxide (Milk Of Magnesia) 30 ml PO HS PRN PRN Reason: Constipation Metoprolol Tartrate (Lopressor) 12.5 mg PO BID [facility] Stop: 08/22/17 08:59 Last Admin: 06/28/17 16:52 Dose: Not Given Multivitamins/Vitamin C (Theragran) 1 tab PO DAILY [facility] Stop: 08/08/17 08:59 Last Admin: 06/28/17 08:23 Dose: 1 tab Ondansetron HCl (Zofran Odt) 4 mg PO Q8H PRN PRN Reason: Nausea / Vomiting Stop: 08/21/17 21:46 Oxybutynin Chloride (Ditropan) 5 mg PO BID [facility] Stop: 08/22/17 08:59 Last Admin: 06/28/17 18:00 Dose: Not Given Fanapt (Iloperidone) (8mg Tablet) 1 PO BID [facility] Stop: 08/21/17 16:59 Last Admin: 06/28/17 18:00 Dose: Not Given Quetiapine Fumarate (Seroquel) 100 mg PO HS [facility] PRN Reason: Protocol Stop: 08/24/17 15:53 Last Admin: 06/28/17 20:55 Dose: 100 mg Senna (Senna) 17.2 mg PO HS [facility] Stop: 08/22/17 20:59 Last Admin: 06/28/17 20:55 Dose: 17.2 mg Tamsulosin HCl (Flomax) 0.4 mg PO DAILY [facility] Stop: 08/22/17 08:59 Last Admin: 06/28/17 08:32 Dose: 0.4 mg Zolpidem Tartrate (Ambien) 5 mg PO HS PRN PRN Reason: Insomnia Stop: 08/07/17 13:09 Last Admin: 06/28/17 20:55 Dose: 5 mg General: demented HEENT: NC/AT, PERRLA, EOMI, anicteric sclerae, throat clear Neck: Supple, No JVD, No thyromegaly Lungs: CTAB Abdomen: soft, non-tender, non-distended Extremities: clear Neurological: no change Internal Medicine Assmt/Plan - Assessment Assessment: 1.HTN 2.HYPOTHYROIDISM. 3.LEFT EXTERNAL EAR SKIN LESION. 4.CONFUSED 5.CHEST PAIN. - Plan Plan: CONTINUE ON CURRENT MEDICATION AND DIET.CBC CMP CPK AND TROPONIN IN AM.NITROGLYCERIN 0.4 MG SL PRN. Nutritional Asmnt/Malnutr-PDOC - Dietary Evaluation Malnutrition Findings (Please click <Entered> for more info): Nutritional Asmnt/Malnutrition Start: 06/14/17 09: 57 Text: Status: Complete Freq: Document 06/14/17 09:57 QUINTON (Rec: 06/14/17 10:01 QUINTON [email or web address]) Nutritional Asmnt/Malnutrition Patient General Information Nutritional Screening Moderate Risk Diagnosis psychosis Pertinent Medical Hx/Surgical Hx DJD, chronic anemia, skin lesion, agitation Subjective Information Per EMR, PO intake 50-100%, avg 75%. Per nurse note, pt only oriented to self. Current Diet Order/ Nutrition Support [facility] soft chopped Pertinent Medications theragran Pertinent Labs 06/08 Na 139, K 3.9, Cl 107, BUN 28, Cr 1.6, Glucose 129, A1c 4.8, Alb 3.6 Nutritional Hx/Data Height 1.78 m Height (Calculated Centimeters) 177.8 Current Weight (lbs) 68.039 kg Weight (Calculated Kilograms) 68.0 Weight (Calculated Grams) 42562.9 [place] Body Weight 166 Body Mass Index (BMI) 21.5 Weight Status Approriate GI Symptoms GI Symptoms None Last BM 06/12 x 2 Difficult in: None Skin Integrity/Comment: laceration to left ear Estimated Nutritional Goals BEE in Kcals: Using Current wt Calories/Kcals/Kg 25-30 Kcals Calculated 1892-2343 Protein: Using Current wt Protein g/k Protein Calculated 75 Fluid: ml 1875-2250ml(1ml/kcal) Nutritional Problem No current Nutrition Prob Problem N/A Intervention/Recommendation Comments 1. Continue with [facility] soft chopped diet as ordered. 2. Monitor PO intake, wt, labs and skin integrity 3. F/U as low risk in 7 days, 06/21 Expected Outcomes/Goals Expected Outcomes/Goals 1. PO intake to meet at least 75% of nutritional needs. 2. Wt stability, skin to remain intact, labs to approach WNL.
[2017-06-29] MEDS: Levothyroxine 0.075 Mg Tab PO SCH (06:34)
[2017-06-29 07:38] LABS: % BASOPHILS 0.2 % (0.0-2.0); % EOSINOPHILS 3.4 % (0.0-5.0); % LYMPHOCYTES 14.5 % (20.0-50.0); % MONOCYTES 7.3 % (2.0-10.0); % NEUTROPHILS 74.6 % (40.0-80.0); EOSINOPHILE ABSOLUTE 0.2 Th/cmm (0.1-0.4); HEMOGLOBIN 10.4 gm/dL (12-16); MEAN CELL VOLUME 90.4 fl (80-99); MEAN CORPUSCULAR HEMOGLOBIN 30.2 pg (27.0-31.0); MEAN CORPUSCULAR HGB CONC 33.4 pg (28.0-36.0); MONOCYTE ABSOLUTE 0.5 Th/cmm (0.3-1.0); NEUTROPHILE ABSOLUTE 5.5 Th/cmm (1.8-8.0); PLATELET COUNT 265 Th/cmm (150-400); RED BLOOD COUNT 3.43 Mil/cmm (3.80-5.80); RED CELL DISTRIBUTION WIDTH 14.1 % (11.5-20.0); WHITE BLOOD COUNT 7.2 Th/cmm (4.8-10.8)
[2017-06-29 07:54] LABS: ALB/GLOB RATIO 1.1 (1.0-1.8); ALBUMIN 3.2 gm/dL (4.2-5.5); ALKALINE PHOSPHATASE 135 U/L (34-104); ANION GAP 9.8 (7.0-16.0); BILIRUBIN,TOTAL 0.3 mg/dL (0.3-1.0); BUN - UREA NITROGEN 30 mg/dL (7-25); CALCIUM SERUM 9.6 mg/dL (8.6-10.3); CARBON DIOXIDE 26.8 mEq/L (21.0-31.0); CHLORIDE 104 mEq/L (98-107); CREATININE - SERUM 1.2 mg/dL (0.7-1.3); CREATININE KINASE 41 U/L (30-223); GLUCOSE 100 mg/dL (70-105); POTASSIUM SERUM 3.6 mEq/L (3.5-5.1); SGOT 11 U/L (13-39); SGPT/ALT 12 U/L (7-52); SODIUM SERUM 137 mEq/L (136-145); TOTAL PROTEIN,SERUM 6.1 gm/dL (6.0-8.3)
[2017-06-29] MEDS: FANAPT 8 MG PO SCH ×2 (09:09→17:16)
[2017-06-29] MEDS: Multivitamin Tab PO SCH (09:10)
[2017-06-29] MEDS: Escitalopram Oxalate 5 mg Tab PO SCH (09:10)
--- NOTE | 2017-06-29 16:05 | Progress Notes ---
DATE: 06/29/2017 SUBJECTIVE: The patient is currently in the Geropsych Unit, still irritable, still yelling, still in a Abida chair, generally calmer, less picking, more behavior interventions have been utilized for example putting a bandage over the ear, but he still remains highly impulsive, unpredictable, good medication compliance. ASSESSMENT: The patient remains somewhat agitated, impulsive, unpredictable impoverished. Thought processes overall calmer and improvement noted. No medication side effects noted. Medications were noted. PLAN: We will monitor and follow up. I did coordinate care with social work today. JOB# [id number]
--- NOTE | 2017-06-29 19:09 | Internal Medicine Prog Note ---
Internal Medicine Subjective - Subjective Service Date: 06/29/17 Patient seen and examined:: with staff (no chest pain) Patient is:: awake, in bed, confused Per staff patient has:: no adverse event Internal Medicine Objective - Results Result Diagrams: 06/29/17 07:15 06/29/17 07:15 Recent Labs: Laboratory Last Values WBC 7.2 Th/cmm (4.8-10.8) 06/29/17 07:15 RBC 3.43 Mil/cmm (3.80-5.80) L 06/29/17 07:15 Hgb 10.4 gm/dL (12-16) L 06/29/17 07:15 Hct 31.0 % (41.0-60) L 06/29/17 07:15 MCV 90.4 fl (80-99) 06/29/17 07:15 MCH 30.2 pg (27.0-31.0) 06/29/17 07:15 MCHC Differential 33.4 pg (28.0-36.0) 06/29/17 07:15 RDW 14.1 % (11.5-20.0) 06/29/17 07:15 Plt Count 265 Th/cmm (150-400) 06/29/17 07:15 MPV 7.0 fl 06/29/17 07:15 Neutrophils % 74.6 % (40.0-80.0) 06/29/17 07:15 Lymphocytes % 14.5 % (20.0-50.0) L 06/29/17 07:15 Monocytes % 7.3 % (2.0-10.0) 06/29/17 07:15 Eosinophils % 3.4 % (0.0-5.0) 06/29/17 07:15 Basophils % 0.2 % (0.0-2.0) 06/29/17 07:15 Sodium 137 mEq/L (136-145) 06/29/17 07:15 Potassium 3.6 mEq/L (3.5-5.1) 06/29/17 07:15 Chloride 104 mEq/L (98-107) 06/29/17 07:15 Carbon Dioxide 26.8 mEq/L (21.0-31.0) 06/29/17 07:15 Anion Gap 9.8 (7.0-16.0) 06/29/17 07:15 BUN 30 mg/dL (7-25) H 06/29/17 07:15 Creatinine 1.2 mg/dL (0.7-1.3) 06/29/17 07:15 Est GFR ( Amer) TNP 06/29/17 07:15 Est GFR (Non-Af Amer) TNP 06/29/17 07:15 BUN/Creatinine Ratio 25.0 06/29/17 07:15 Glucose 100 mg/dL (70-105) 06/29/17 07:15 POC Glucose 134 MG/DL (70 - 105) H 06/29/17 17:10 Hemoglobin A1c % 4.8 % (4.0-6.0) 06/08/17 09:00 Calcium 9.6 mg/dL (8.6-10.3) 06/29/17 07:15 Total Bilirubin 0.3 mg/dL (0.3-1.0) 06/29/17 07:15 AST 11 U/L (13-39) L 06/29/17 07:15 ALT 12 U/L (7-52) 06/29/17 07:15 Alkaline Phosphatase 135 U/L (34-104) H 06/29/17 07:15 Creatine Kinase 41 U/L (30-223) 06/29/17 07:15 Troponin I 0.01 ng/mL (0.01-0.05) 06/29/17 07:15 Total Protein 6.1 gm/dL (6.0-8.3) 06/29/17 07:15 Albumin 3.2 gm/dL (4.2-5.5) L 06/29/17 07:15 Globulin 2.9 gm/dL 06/29/17 07:15 Albumin/Globulin Ratio 1.1 (1.0-1.8) 06/29/17 07:15 Triglycerides 118 mg/dL (<150) 06/08/17 09:00 Cholesterol 189 mg/dL (<200) 06/08/17 09:00 LDL Cholesterol Direct 137 mg/dL (75-193) 06/08/17 09:00 HDL Cholesterol 43 mg/dL (23-92) 06/08/17 09:00 TSH 3.25 uIU/ml (0.34-5.60) 06/08/17 09:00 Urine Source CLEAN C 06/08/17 07:45 Urine Color YELLOW 06/08/17 07:45 Urine Clarity CLEAR (CLEAR) 06/08/17 07:45 Urine pH 6.0 (4.6 - 8.0) 06/08/17 07:45 Ur Specific [place] 1.020 (1.005-1.030) 06/08/17 07:45 Urine Protein NEGATIVE mg/dL (NEGATIVE) 06/08/17 07:45 Urine Glucose (UA) NEGATIVE mg/dL (NEGATIVE) 06/08/17 07:45 Urine Ketones NEGATIVE mg/dL (NEGATIVE) 06/08/17 07:45 Urine Blood NEGATIVE (NEGATIVE) 06/08/17 07:45 Urine Nitrate NEGATIVE (NEGATIVE) 06/08/17 07:45 Urine Bilirubin NEGATIVE (NEGATIVE) 06/08/17 07:45 Urine Urobilinogen 0.2 E.U./dL (0.2 - 1.0) 06/08/17 07:45 Ur Leukocyte Esterase NEGATIVE (NEGATIVE) 06/08/17 07:45 Urine RBC 0-2 /hpf (0-5) H 06/08/17 07:45 Urine WBC 0-2 /hpf (0-5) 06/08/17 07:45 Ur Epithelial Cells RARE /lpf (FEW) 06/08/17 07:45 Urine Bacteria NONE SEEN /hpf (NONE SEEN) 06/08/17 07:45 Salicylates < 25.0 mg/L (30.0-100.0) L 06/08/17 09:00 Urine Opiates Screen POSITIVE (NEGATIVE) H 06/08/17 07:45 Urine Methadone Screen NEGATIVE (NEGATIVE) 06/08/17 07:45 Acetaminophen < 10.0 ug/mL (10.0-30.0) L 06/08/17 09:00 Ur Barbiturates Screen NEGATIVE (NEGATIVE) 06/08/17 07:45 Ur Tricyclics Screen NEGATIVE (NEGATIVE) 06/08/17 07:45 Ur Phencyclidine Scrn NEGATIVE (NEGATIVE) 06/08/17 07:45 Amphetamines Screen NEGATIVE (NEGATIVE) 06/08/17 07:45 U Methamphetamines Scrn NEGATIVE (NEGATIVE) 06/08/17 07:45 U Benzodiazepines Scrn NEGATIVE (NEGATIVE) 06/08/17 07:45 U Cocaine Metab Screen NEGATIVE (NEGATIVE) 06/08/17 07:45 U Cannabinoids Screen NEGATIVE (NEGATIVE) 06/08/17 07:45 Ethyl Alcohol < 10 mg/dL (0-10) 06/08/17 09:00 RPR NONREACTIVE (NONREACTIVE) 06/08/17 09:00 - Physical Exam Vitals and I&O: Vital Signs Temp 97.7 F 06/29/17 15:48 Pulse 77 06/29/17 17:04 Resp 20 06/29/17 15:48 BP 124/60 06/29/17 17:04 Pulse Ox 96 06/29/17 15:48 Intake & Output 06/29/17 06/29/17 06/30/17 06:59 18:59 06:59 Intake Total 240 900 Balance 240 900 Intake: Oral 240 900 Other: # Voids 3 4 # Bowel Movements 1 1 Stool Characteristics Soft Soft Brown Active Medications: Current Medications Acetaminophen (Tylenol) 650 mg PO Q4HR PRN PRN Reason: Mild Pain / Temp above 100 Stop: 08/07/17 13:09 Last Admin: 06/23/17 15:26 Dose: 650 mg Acetaminophen/Hydrocodone Bitart ([place] 5mg/325mg) 1 tab PO Q6H PRN PRN Reason: Pain (Moderate) Stop: 08/21/17 21:46 Al Hydrox/Mg Hydrox/Simethicone (Maalox) 30 ml PO Q4HR PRN PRN Reason: GI DISTRESS Stop: 08/07/17 13:09 Albuterol Sulfate (Albuterol 2.5mg/3ml Neb Ud) 2.5 mg HHN Q8H PRN PRN Reason: Shortness of Breath Ascorbic Acid (Vitamin C) 500 mg PO DAILY [facility] Stop: 08/22/17 08:59 Last Admin: 06/29/17 09:10 Dose: Not Given Escitalopram Oxalate (Lexapro) 5 mg PO DAILY [facility] PRN Reason: Protocol Stop: 08/25/17 08:59 Last Admin: 06/29/17 09:10 Dose: Not Given Famotidine (Pepcid) 20 mg PO DAILY [facility] Stop: 08/22/17 08:59 Last Admin: 06/29/17 09:11 Dose: Not Given Levothyroxine Sodium (Synthroid) 0.075 mg PO QDAC [facility] Stop: 08/22/17 07:29 Last Admin: 06/29/17 06:34 Dose: 0.075 mg Lorazepam (Ativan) 0.5 mg PO Q6HR PRN PRN Reason: Agitation Stop: 08/13/17 16:06 Last Admin: 06/29/17 17:03 Dose: 0.5 mg Magnesium Hydroxide (Milk Of Magnesia) 30 ml PO HS PRN PRN Reason: Constipation Metoprolol Tartrate (Lopressor) 12.5 mg PO BID [facility] Stop: 08/22/17 08:59 Last Admin: 06/29/17 17:04 Dose: Not Given Multivitamins/Vitamin C (Theragran) 1 tab PO DAILY [facility] Stop: 08/08/17 08:59 Last Admin: 06/29/17 09:10 Dose: Not Given Nitroglycerin (Nitrostat) 0.4 mg SL Q5MIN PRN PRN Reason: Chest Pain Stop: 08/27/17 23:27 Ondansetron HCl (Zofran Odt) 4 mg PO Q8H PRN PRN Reason: Nausea / Vomiting Stop: 08/21/17 21:46 Oxybutynin Chloride (Ditropan) 5 mg PO BID [facility] Stop: 08/22/17 08:59 Last Admin: 06/29/17 17:03 Dose: 5 mg Fanapt (Iloperidone) (8mg Tablet) 1 PO BID [facility] Stop: 08/21/17 16:59 Last Admin: 06/29/17 17:16 Dose: 1 Quetiapine Fumarate (Seroquel) 100 mg PO HS [facility] PRN Reason: Protocol Stop: 08/24/17 15:53 Last Admin: 06/28/17 20:55 Dose: 100 mg Senna (Senna) 17.2 mg PO HS [facility] Stop: 08/22/17 20:59 Last Admin: 06/28/17 20:55 Dose: 17.2 mg Tamsulosin HCl (Flomax) 0.4 mg PO DAILY [facility] Stop: 08/22/17 08:59 Last Admin: 06/29/17 09:10 Dose: Not Given Zolpidem Tartrate (Ambien) 5 mg PO HS PRN PRN Reason: Insomnia Stop: 08/07/17 13:09 Last Admin: 06/28/17 20:55 Dose: 5 mg General: demented HEENT: NC/AT, PERRLA, EOMI, anicteric sclerae, throat clear Neck: Supple, No JVD, No thyromegaly Lungs: CTAB Abdomen: soft, non-tender, non-distended Extremities: clear Neurological: no change Internal Medicine Assmt/Plan - Assessment Assessment: 1.HTN 2.HYPOTHYROIDISM. 3.LEFT EXTERNAL EAR SKIN LESION. 4.CONFUSED 5.CHEST PAIN. - Plan Plan: CONTINUE ON CURRENT MEDICATION AND DIET. Nutritional Asmnt/Malnutr-PDOC - Dietary Evaluation Malnutrition Findings (Please click <Entered> for more info): Nutritional Asmnt/Malnutrition Start: 06/14/17 09: 57 Text: Status: Complete Freq: Document 06/14/17 09:57 QUINTON (Rec: 06/14/17 10:01 QUINTON [email or web address]) Nutritional Asmnt/Malnutrition Patient General Information Nutritional Screening Moderate Risk Diagnosis psychosis Pertinent Medical Hx/Surgical Hx DJD, chronic anemia, skin lesion, agitation Subjective Information Per EMR, PO intake 50-100%, avg 75%. Per nurse note, pt only oriented to self. Current Diet Order/ Nutrition Support [facility] soft chopped Pertinent Medications theragran Pertinent Labs 06/08 Na 139, K 3.9, Cl 107, BUN 28, Cr 1.6, Glucose 129, A1c 4.8, Alb 3.6 Nutritional Hx/Data Height 1.78 m Height (Calculated Centimeters) 177.8 Current Weight (lbs) 68.039 kg Weight (Calculated Kilograms) 68.0 Weight (Calculated Grams) 64523.9 [place] Body Weight 166 Body Mass Index (BMI) 21.5 Weight Status Approriate GI Symptoms GI Symptoms None Last BM 06/12 x 2 Difficult in: None Skin Integrity/Comment: laceration to left ear Estimated Nutritional Goals BEE in Kcals: Using Current wt Calories/Kcals/Kg 25-30 Kcals Calculated 3258-3736 Protein: Using Current wt Protein g/k Protein Calculated 75 Fluid: ml 1875-2250ml(1ml/kcal) Nutritional Problem No current Nutrition Prob Problem N/A Intervention/Recommendation Comments 1. Continue with [facility] soft chopped diet as ordered. 2. Monitor PO intake, wt, labs and skin integrity 3. F/U as low risk in 7 days, 06/21 Expected Outcomes/Goals Expected Outcomes/Goals 1. PO intake to meet at least 75% of nutritional needs. 2. Wt stability, skin to remain intact, labs to approach WNL.
[2017-06-30] MEDS: Levothyroxine 0.075 Mg Tab PO SCH (06:37)
[2017-06-30] MEDS: FANAPT 8 MG PO SCH ×2 (08:18→16:44)
[2017-06-30] MEDS: Escitalopram Oxalate 5 mg Tab PO SCH (08:19)
[2017-06-30] MEDS: Multivitamin Tab PO SCH (08:19)
--- NOTE | 2017-06-30 18:11 | Progress Notes ---
DATE: 06/30/2017 The patient seems calmer, more cooperative, less agitated. Staff noting less combative behaviors, no longer picking at his ears much, no longer lashing out. The patient seems to be more tolerant of treatment, more redirectable, still, however, noted to be in a Abida chair, still noted to be at times quite impulsive but less so. Sleeping fairly well. Calm at this time. No overt side effects. Medications were reviewed. ASSESSMENT: The patient calmer, more cooperative, likely approaching his baseline. PLAN: We will continue to monitor, titrate and adjust medications. We will coordinate care with social work regarding safe discharge plan. JOB# [id number]
--- NOTE | 2017-06-30 19:51 | Internal Medicine Prog Note ---
Internal Medicine Subjective - Subjective Service Date: 06/30/17 Patient seen and examined:: with staff (no chest pain) Patient is:: awake, in bed, confused Per staff patient has:: no adverse event Internal Medicine Objective - Results Result Diagrams: 06/29/17 07:15 06/29/17 07:15 Recent Labs: Laboratory Last Values WBC 7.2 Th/cmm (4.8-10.8) 06/29/17 07:15 RBC 3.43 Mil/cmm (3.80-5.80) L 06/29/17 07:15 Hgb 10.4 gm/dL (12-16) L 06/29/17 07:15 Hct 31.0 % (41.0-60) L 06/29/17 07:15 MCV 90.4 fl (80-99) 06/29/17 07:15 MCH 30.2 pg (27.0-31.0) 06/29/17 07:15 MCHC Differential 33.4 pg (28.0-36.0) 06/29/17 07:15 RDW 14.1 % (11.5-20.0) 06/29/17 07:15 Plt Count 265 Th/cmm (150-400) 06/29/17 07:15 MPV 7.0 fl 06/29/17 07:15 Neutrophils % 74.6 % (40.0-80.0) 06/29/17 07:15 Lymphocytes % 14.5 % (20.0-50.0) L 06/29/17 07:15 Monocytes % 7.3 % (2.0-10.0) 06/29/17 07:15 Eosinophils % 3.4 % (0.0-5.0) 06/29/17 07:15 Basophils % 0.2 % (0.0-2.0) 06/29/17 07:15 Sodium 137 mEq/L (136-145) 06/29/17 07:15 Potassium 3.6 mEq/L (3.5-5.1) 06/29/17 07:15 Chloride 104 mEq/L (98-107) 06/29/17 07:15 Carbon Dioxide 26.8 mEq/L (21.0-31.0) 06/29/17 07:15 Anion Gap 9.8 (7.0-16.0) 06/29/17 07:15 BUN 30 mg/dL (7-25) H 06/29/17 07:15 Creatinine 1.2 mg/dL (0.7-1.3) 06/29/17 07:15 Est GFR ( Amer) TNP 06/29/17 07:15 Est GFR (Non-Af Amer) TNP 06/29/17 07:15 BUN/Creatinine Ratio 25.0 06/29/17 07:15 Glucose 100 mg/dL (70-105) 06/29/17 07:15 POC Glucose 134 MG/DL (70 - 105) H 06/29/17 17:10 Hemoglobin A1c % 4.8 % (4.0-6.0) 06/08/17 09:00 Calcium 9.6 mg/dL (8.6-10.3) 06/29/17 07:15 Total Bilirubin 0.3 mg/dL (0.3-1.0) 06/29/17 07:15 AST 11 U/L (13-39) L 06/29/17 07:15 ALT 12 U/L (7-52) 06/29/17 07:15 Alkaline Phosphatase 135 U/L (34-104) H 06/29/17 07:15 Creatine Kinase 41 U/L (30-223) 06/29/17 07:15 Troponin I 0.01 ng/mL (0.01-0.05) 06/29/17 07:15 Total Protein 6.1 gm/dL (6.0-8.3) 06/29/17 07:15 Albumin 3.2 gm/dL (4.2-5.5) L 06/29/17 07:15 Globulin 2.9 gm/dL 06/29/17 07:15 Albumin/Globulin Ratio 1.1 (1.0-1.8) 06/29/17 07:15 Triglycerides 118 mg/dL (<150) 06/08/17 09:00 Cholesterol 189 mg/dL (<200) 06/08/17 09:00 LDL Cholesterol Direct 137 mg/dL (75-193) 06/08/17 09:00 HDL Cholesterol 43 mg/dL (23-92) 06/08/17 09:00 TSH 3.25 uIU/ml (0.34-5.60) 06/08/17 09:00 Urine Source CLEAN C 06/08/17 07:45 Urine Color YELLOW 06/08/17 07:45 Urine Clarity CLEAR (CLEAR) 06/08/17 07:45 Urine pH 6.0 (4.6 - 8.0) 06/08/17 07:45 Ur Specific [place] 1.020 (1.005-1.030) 06/08/17 07:45 Urine Protein NEGATIVE mg/dL (NEGATIVE) 06/08/17 07:45 Urine Glucose (UA) NEGATIVE mg/dL (NEGATIVE) 06/08/17 07:45 Urine Ketones NEGATIVE mg/dL (NEGATIVE) 06/08/17 07:45 Urine Blood NEGATIVE (NEGATIVE) 06/08/17 07:45 Urine Nitrate NEGATIVE (NEGATIVE) 06/08/17 07:45 Urine Bilirubin NEGATIVE (NEGATIVE) 06/08/17 07:45 Urine Urobilinogen 0.2 E.U./dL (0.2 - 1.0) 06/08/17 07:45 Ur Leukocyte Esterase NEGATIVE (NEGATIVE) 06/08/17 07:45 Urine RBC 0-2 /hpf (0-5) H 06/08/17 07:45 Urine WBC 0-2 /hpf (0-5) 06/08/17 07:45 Ur Epithelial Cells RARE /lpf (FEW) 06/08/17 07:45 Urine Bacteria NONE SEEN /hpf (NONE SEEN) 06/08/17 07:45 Salicylates < 25.0 mg/L (30.0-100.0) L 06/08/17 09:00 Urine Opiates Screen POSITIVE (NEGATIVE) H 06/08/17 07:45 Urine Methadone Screen NEGATIVE (NEGATIVE) 06/08/17 07:45 Acetaminophen < 10.0 ug/mL (10.0-30.0) L 06/08/17 09:00 Ur Barbiturates Screen NEGATIVE (NEGATIVE) 06/08/17 07:45 Ur Tricyclics Screen NEGATIVE (NEGATIVE) 06/08/17 07:45 Ur Phencyclidine Scrn NEGATIVE (NEGATIVE) 06/08/17 07:45 Amphetamines Screen NEGATIVE (NEGATIVE) 06/08/17 07:45 U Methamphetamines Scrn NEGATIVE (NEGATIVE) 06/08/17 07:45 U Benzodiazepines Scrn NEGATIVE (NEGATIVE) 06/08/17 07:45 U Cocaine Metab Screen NEGATIVE (NEGATIVE) 06/08/17 07:45 U Cannabinoids Screen NEGATIVE (NEGATIVE) 06/08/17 07:45 Ethyl Alcohol < 10 mg/dL (0-10) 06/08/17 09:00 RPR NONREACTIVE (NONREACTIVE) 06/08/17 09:00 - Physical Exam Vitals and I&O: Vital Signs Temp 97.1 F 06/30/17 15:33 Pulse 67 06/30/17 16:34 Resp 18 06/30/17 15:33 BP 109/53 06/30/17 16:34 Pulse Ox 97 06/30/17 15:33 Intake & Output 06/30/17 06/30/17 07/01/17 06:59 18:59 06:59 Intake Total 300 900 Balance 300 900 Intake: Oral 300 900 Other: # Voids 2 2 # Bowel Movements 1 1 Stool Characteristics Soft Brown Active Medications: Current Medications Acetaminophen (Tylenol) 650 mg PO Q4HR PRN PRN Reason: Mild Pain / Temp above 100 Stop: 08/07/17 13:09 Last Admin: 06/23/17 15:26 Dose: 650 mg Acetaminophen/Hydrocodone Bitart ([place] 5mg/325mg) 1 tab PO Q6H PRN PRN Reason: Pain (Moderate) Stop: 08/21/17 21:46 Al Hydrox/Mg Hydrox/Simethicone (Maalox) 30 ml PO Q4HR PRN PRN Reason: GI DISTRESS Stop: 08/07/17 13:09 Albuterol Sulfate (Albuterol 2.5mg/3ml Neb Ud) 2.5 mg HHN Q8H PRN PRN Reason: Shortness of Breath Ascorbic Acid (Vitamin C) 500 mg PO DAILY [facility] Stop: 08/22/17 08:59 Last Admin: 06/30/17 08:19 Dose: 500 mg Escitalopram Oxalate (Lexapro) 5 mg PO DAILY [facility] PRN Reason: Protocol Stop: 08/25/17 08:59 Last Admin: 06/30/17 08:19 Dose: 5 mg Famotidine (Pepcid) 20 mg PO DAILY [facility] Stop: 08/22/17 08:59 Last Admin: 06/30/17 08:19 Dose: 20 mg Levothyroxine Sodium (Synthroid) 0.075 mg PO QDAC [facility] Stop: 08/22/17 07:29 Last Admin: 06/30/17 06:37 Dose: 0.075 mg Lorazepam (Ativan) 0.5 mg PO Q6HR PRN PRN Reason: Agitation Stop: 08/13/17 16:06 Last Admin: 06/30/17 16:34 Dose: 0.5 mg Magnesium Hydroxide (Milk Of Magnesia) 30 ml PO HS PRN PRN Reason: Constipation Metoprolol Tartrate (Lopressor) 12.5 mg PO BID [facility] Stop: 08/22/17 08:59 Last Admin: 06/30/17 16:34 Dose: Not Given Multivitamins/Vitamin C (Theragran) 1 tab PO DAILY [facility] Stop: 08/08/17 08:59 Last Admin: 06/30/17 08:19 Dose: 1 tab Nitroglycerin (Nitrostat) 0.4 mg SL Q5MIN PRN PRN Reason: Chest Pain Stop: 08/27/17 23:27 Ondansetron HCl (Zofran Odt) 4 mg PO Q8H PRN PRN Reason: Nausea / Vomiting Stop: 08/21/17 21:46 Oxybutynin Chloride (Ditropan) 5 mg PO BID [facility] Stop: 08/22/17 08:59 Last Admin: 06/30/17 16:33 Dose: 5 mg Fanapt (Iloperidone) (8mg Tablet) 1 PO BID [facility] Stop: 08/21/17 16:59 Last Admin: 06/30/17 16:44 Dose: 1 Quetiapine Fumarate (Seroquel) 100 mg PO HS [facility] PRN Reason: Protocol Stop: 08/24/17 15:53 Last Admin: 06/29/17 21:20 Dose: 100 mg Senna (Senna) 17.2 mg PO HS [facility] Stop: 08/22/17 20:59 Last Admin: 06/29/17 21:20 Dose: 17.2 mg Tamsulosin HCl (Flomax) 0.4 mg PO DAILY [facility] Stop: 08/22/17 08:59 Last Admin: 06/30/17 08:19 Dose: 0.4 mg Zolpidem Tartrate (Ambien) 5 mg PO HS PRN PRN Reason: Insomnia Stop: 08/07/17 13:09 Last Admin: 06/29/17 21:20 Dose: 5 mg General: demented HEENT: NC/AT, PERRLA, EOMI, anicteric sclerae, throat clear Neck: Supple, No JVD, No thyromegaly Lungs: CTAB Abdomen: soft, non-tender, non-distended Extremities: clear Neurological: no change Internal Medicine Assmt/Plan - Assessment Assessment: 1.HTN 2.HYPOTHYROIDISM. 3.LEFT EXTERNAL EAR SKIN LESION. 4.CONFUSED. 5.ANEMIA - Plan Plan: CONTINUE ON CURRENT MEDICATION AND DIET. Nutritional Asmnt/Malnutr-PDOC - Dietary Evaluation Malnutrition Findings (Please click <Entered> for more info): Nutritional Asmnt/Malnutrition Start: 06/14/17 09: 57 Text: Status: Complete Freq: Document 06/14/17 09:57 QUINTON (Rec: 06/14/17 10:01 QUINTON [email or web address]) Nutritional Asmnt/Malnutrition Patient General Information Nutritional Screening Moderate Risk Diagnosis psychosis Pertinent Medical Hx/Surgical Hx DJD, chronic anemia, skin lesion, agitation Subjective Information Per EMR, PO intake 50-100%, avg 75%. Per nurse note, pt only oriented to self. Current Diet Order/ Nutrition Support [facility] soft chopped Pertinent Medications theragran Pertinent Labs 06/08 Na 139, K 3.9, Cl 107, BUN 28, Cr 1.6, Glucose 129, A1c 4.8, Alb 3.6 Nutritional Hx/Data Height 1.78 m Height (Calculated Centimeters) 177.8 Current Weight (lbs) 68.039 kg Weight (Calculated Kilograms) 68.0 Weight (Calculated Grams) 57684.9 [place] Body Weight 166 Body Mass Index (BMI) 21.5 Weight Status Approriate GI Symptoms GI Symptoms None Last BM 06/12 x 2 Difficult in: None Skin Integrity/Comment: laceration to left ear Estimated Nutritional Goals BEE in Kcals: Using Current wt Calories/Kcals/Kg 25-30 Kcals Calculated 7347-8299 Protein: Using Current wt Protein g/k Protein Calculated 75 Fluid: ml 1875-2250ml(1ml/kcal) Nutritional Problem No current Nutrition Prob Problem N/A Intervention/Recommendation Comments 1. Continue with [facility] soft chopped diet as ordered. 2. Monitor PO intake, wt, labs and skin integrity 3. F/U as low risk in 7 days, 06/21 Expected Outcomes/Goals Expected Outcomes/Goals 1. PO intake to meet at least 75% of nutritional needs. 2. Wt stability, skin to remain intact, labs to approach WNL.
[2017-07-01] MEDS: Levothyroxine 0.075 Mg Tab PO SCH (06:56)
[2017-07-01] MEDS: FANAPT 8 MG PO SCH ×2 (09:27→16:53)
[2017-07-01] MEDS: Multivitamin Tab PO SCH (10:20)
[2017-07-01] MEDS: Escitalopram Oxalate 5 mg Tab PO SCH (10:29)
--- NOTE | 2017-07-01 20:30 | Progress Notes ---
DATE: The patient remains much calmer, more cooperative, no longer picking so much at the ear, still in a [place] chair, still remains somewhat restless and impulsive but significantly calmer versus initial admission. No medication side effects noted. No EPS for example. No over sedation. The patient needs prompting and help with ADLs and to eat. Medications were noted. ASSESSMENT: The patient calmer, more cooperative, likely approaching his baseline, mildly restless and impulsive, however. PLAN: We will err on the side of caution, monitor for further 24 hours. We will continue to adjust and titrate medications as tolerated. JOB# [id number]
--- NOTE | 2017-07-02 00:12 | Internal Medicine Prog Note ---
Internal Medicine Subjective - Subjective Service Date: 07/01/17 Patient seen and examined:: without staff Patient is:: awake, in bed, confused Per staff patient has:: no adverse event Internal Medicine Objective - Results Result Diagrams: 06/29/17 07:15 06/29/17 07:15 Recent Labs: Laboratory Last Values WBC 7.2 Th/cmm (4.8-10.8) 06/29/17 07:15 RBC 3.43 Mil/cmm (3.80-5.80) L 06/29/17 07:15 Hgb 10.4 gm/dL (12-16) L 06/29/17 07:15 Hct 31.0 % (41.0-60) L 06/29/17 07:15 MCV 90.4 fl (80-99) 06/29/17 07:15 MCH 30.2 pg (27.0-31.0) 06/29/17 07:15 MCHC Differential 33.4 pg (28.0-36.0) 06/29/17 07:15 RDW 14.1 % (11.5-20.0) 06/29/17 07:15 Plt Count 265 Th/cmm (150-400) 06/29/17 07:15 MPV 7.0 fl 06/29/17 07:15 Neutrophils % 74.6 % (40.0-80.0) 06/29/17 07:15 Lymphocytes % 14.5 % (20.0-50.0) L 06/29/17 07:15 Monocytes % 7.3 % (2.0-10.0) 06/29/17 07:15 Eosinophils % 3.4 % (0.0-5.0) 06/29/17 07:15 Basophils % 0.2 % (0.0-2.0) 06/29/17 07:15 Sodium 137 mEq/L (136-145) 06/29/17 07:15 Potassium 3.6 mEq/L (3.5-5.1) 06/29/17 07:15 Chloride 104 mEq/L (98-107) 06/29/17 07:15 Carbon Dioxide 26.8 mEq/L (21.0-31.0) 06/29/17 07:15 Anion Gap 9.8 (7.0-16.0) 06/29/17 07:15 BUN 30 mg/dL (7-25) H 06/29/17 07:15 Creatinine 1.2 mg/dL (0.7-1.3) 06/29/17 07:15 Est GFR ( Amer) TNP 06/29/17 07:15 Est GFR (Non-Af Amer) TNP 06/29/17 07:15 BUN/Creatinine Ratio 25.0 06/29/17 07:15 Glucose 100 mg/dL (70-105) 06/29/17 07:15 POC Glucose 134 MG/DL (70 - 105) H 06/29/17 17:10 Hemoglobin A1c % 4.8 % (4.0-6.0) 06/08/17 09:00 Calcium 9.6 mg/dL (8.6-10.3) 06/29/17 07:15 Total Bilirubin 0.3 mg/dL (0.3-1.0) 06/29/17 07:15 AST 11 U/L (13-39) L 06/29/17 07:15 ALT 12 U/L (7-52) 06/29/17 07:15 Alkaline Phosphatase 135 U/L (34-104) H 06/29/17 07:15 Creatine Kinase 41 U/L (30-223) 06/29/17 07:15 Troponin I 0.01 ng/mL (0.01-0.05) 06/29/17 07:15 Total Protein 6.1 gm/dL (6.0-8.3) 06/29/17 07:15 Albumin 3.2 gm/dL (4.2-5.5) L 06/29/17 07:15 Globulin 2.9 gm/dL 06/29/17 07:15 Albumin/Globulin Ratio 1.1 (1.0-1.8) 06/29/17 07:15 Triglycerides 118 mg/dL (<150) 06/08/17 09:00 Cholesterol 189 mg/dL (<200) 06/08/17 09:00 LDL Cholesterol Direct 137 mg/dL (75-193) 06/08/17 09:00 HDL Cholesterol 43 mg/dL (23-92) 06/08/17 09:00 TSH 3.25 uIU/ml (0.34-5.60) 06/08/17 09:00 Urine Source CLEAN C 06/08/17 07:45 Urine Color YELLOW 06/08/17 07:45 Urine Clarity CLEAR (CLEAR) 06/08/17 07:45 Urine pH 6.0 (4.6 - 8.0) 06/08/17 07:45 Ur Specific [place] 1.020 (1.005-1.030) 06/08/17 07:45 Urine Protein NEGATIVE mg/dL (NEGATIVE) 06/08/17 07:45 Urine Glucose (UA) NEGATIVE mg/dL (NEGATIVE) 06/08/17 07:45 Urine Ketones NEGATIVE mg/dL (NEGATIVE) 06/08/17 07:45 Urine Blood NEGATIVE (NEGATIVE) 06/08/17 07:45 Urine Nitrate NEGATIVE (NEGATIVE) 06/08/17 07:45 Urine Bilirubin NEGATIVE (NEGATIVE) 06/08/17 07:45 Urine Urobilinogen 0.2 E.U./dL (0.2 - 1.0) 06/08/17 07:45 Ur Leukocyte Esterase NEGATIVE (NEGATIVE) 06/08/17 07:45 Urine RBC 0-2 /hpf (0-5) H 06/08/17 07:45 Urine WBC 0-2 /hpf (0-5) 06/08/17 07:45 Ur Epithelial Cells RARE /lpf (FEW) 06/08/17 07:45 Urine Bacteria NONE SEEN /hpf (NONE SEEN) 06/08/17 07:45 Salicylates < 25.0 mg/L (30.0-100.0) L 06/08/17 09:00 Urine Opiates Screen POSITIVE (NEGATIVE) H 06/08/17 07:45 Urine Methadone Screen NEGATIVE (NEGATIVE) 06/08/17 07:45 Acetaminophen < 10.0 ug/mL (10.0-30.0) L 06/08/17 09:00 Ur Barbiturates Screen NEGATIVE (NEGATIVE) 06/08/17 07:45 Ur Tricyclics Screen NEGATIVE (NEGATIVE) 06/08/17 07:45 Ur Phencyclidine Scrn NEGATIVE (NEGATIVE) 06/08/17 07:45 Amphetamines Screen NEGATIVE (NEGATIVE) 06/08/17 07:45 U Methamphetamines Scrn NEGATIVE (NEGATIVE) 06/08/17 07:45 U Benzodiazepines Scrn NEGATIVE (NEGATIVE) 06/08/17 07:45 U Cocaine Metab Screen NEGATIVE (NEGATIVE) 06/08/17 07:45 U Cannabinoids Screen NEGATIVE (NEGATIVE) 06/08/17 07:45 Ethyl Alcohol < 10 mg/dL (0-10) 06/08/17 09:00 RPR NONREACTIVE (NONREACTIVE) 06/08/17 09:00 - Physical Exam Vitals and I&O: Vital Signs Temp 97.2 F 07/01/17 20:56 Pulse 67 07/01/17 20:56 Resp 18 07/01/17 20:56 BP 103/53 07/01/17 20:56 Pulse Ox 97 07/01/17 20:56 Intake & Output 07/01/17 07/01/17 07/02/17 06:59 18:59 06:59 Intake Total 360 1000 240 Balance 360 1000 240 Intake: Oral 360 1000 240 Other: # Voids 3 3 1 # Bowel Movements 1 Stool Characteristics Formed Active Medications: Current Medications Acetaminophen (Tylenol) 650 mg PO Q4HR PRN PRN Reason: Mild Pain / Temp above 100 Stop: 08/07/17 13:09 Last Admin: 06/23/17 15:26 Dose: 650 mg Acetaminophen/Hydrocodone Bitart ([place] 5mg/325mg) 1 tab PO Q6H PRN PRN Reason: Pain (Moderate) Stop: 08/21/17 21:46 Al Hydrox/Mg Hydrox/Simethicone (Maalox) 30 ml PO Q4HR PRN PRN Reason: GI DISTRESS Stop: 08/07/17 13:09 Albuterol Sulfate (Albuterol 2.5mg/3ml Neb Ud) 2.5 mg HHN Q8H PRN PRN Reason: Shortness of Breath Ascorbic Acid (Vitamin C) 500 mg PO DAILY [facility] Stop: 08/22/17 08:59 Last Admin: 07/01/17 09:30 Dose: 500 mg Escitalopram Oxalate (Lexapro) 5 mg PO DAILY [facility] PRN Reason: Protocol Stop: 08/25/17 08:59 Last Admin: 07/01/17 10:29 Dose: 5 mg Famotidine (Pepcid) 20 mg PO DAILY [facility] Stop: 08/22/17 08:59 Last Admin: 07/01/17 10:32 Dose: 20 mg Levothyroxine Sodium (Synthroid) 0.075 mg PO QDAC [facility] Stop: 08/22/17 07:29 Last Admin: 07/01/17 06:56 Dose: 0.075 mg Lorazepam (Ativan) 0.5 mg PO Q6HR PRN PRN Reason: Agitation Stop: 08/13/17 16:06 Last Admin: 07/01/17 20:20 Dose: 0.5 mg Magnesium Hydroxide (Milk Of Magnesia) 30 ml PO HS PRN PRN Reason: Constipation Metoprolol Tartrate (Lopressor) 12.5 mg PO BID [facility] Stop: 08/22/17 08:59 Last Admin: 07/01/17 16:48 Dose: Not Given Multivitamins/Vitamin C (Theragran) 1 tab PO DAILY [facility] Stop: 08/08/17 08:59 Last Admin: 07/01/17 10:20 Dose: 1 tab Nitroglycerin (Nitrostat) 0.4 mg SL Q5MIN PRN PRN Reason: Chest Pain Stop: 08/27/17 23:27 Ondansetron HCl (Zofran Odt) 4 mg PO Q8H PRN PRN Reason: Nausea / Vomiting Stop: 08/21/17 21:46 Oxybutynin Chloride (Ditropan) 5 mg PO BID [facility] Stop: 08/22/17 08:59 Last Admin: 07/01/17 16:50 Dose: 5 mg Fanapt (Iloperidone) (8mg Tablet) 1 PO BID [facility] Stop: 08/21/17 16:59 Last Admin: 07/01/17 16:53 Dose: 1 Quetiapine Fumarate (Seroquel) 100 mg PO HS [facility] PRN Reason: Protocol Stop: 08/24/17 15:53 Last Admin: 07/01/17 20:20 Dose: 100 mg Senna (Senna) 17.2 mg PO HS [facility] Stop: 08/22/17 20:59 Last Admin: 07/01/17 20:20 Dose: 17.2 mg Tamsulosin HCl (Flomax) 0.4 mg PO DAILY [facility] Stop: 08/22/17 08:59 Last Admin: 07/01/17 10:20 Dose: 0.4 mg Zolpidem Tartrate (Ambien) 5 mg PO HS PRN PRN Reason: Insomnia Stop: 08/07/17 13:09 Last Admin: 07/01/17 20:20 Dose: 5 mg General: demented HEENT: NC/AT, PERRLA, EOMI, anicteric sclerae, throat clear Neck: Supple, No JVD, No thyromegaly Lungs: CTAB Abdomen: soft, non-tender, non-distended Extremities: clear Neurological: no change Internal Medicine Assmt/Plan - Assessment Assessment: 1.HTN 2.HYPOTHYROIDISM. 3.LEFT EXTERNAL EAR SKIN LESION. 4.CONFUSED. 5.ANEMIA - Plan Plan: CONTINUE ON CURRENT MEDICATION AND DIET. Nutritional Asmnt/Malnutr-PDOC - Dietary Evaluation Malnutrition Findings (Please click <Entered> for more info): Nutritional Asmnt/Malnutrition Start: 06/14/17 09: 57 Text: Status: Complete Freq: Document 06/14/17 09:57 QUINOTN (Rec: 06/14/17 10:01 QUINTON [email or web address]) Nutritional Asmnt/Malnutrition Patient General Information Nutritional Screening Moderate Risk Diagnosis psychosis Pertinent Medical Hx/Surgical Hx DJD, chronic anemia, skin lesion, agitation Subjective Information Per EMR, PO intake 50-100%, avg 75%. Per nurse note, pt only oriented to self. Current Diet Order/ Nutrition Support [facility] soft chopped Pertinent Medications theragran Pertinent Labs 06/08 Na 139, K 3.9, Cl 107, BUN 28, Cr 1.6, Glucose 129, A1c 4.8, Alb 3.6 Nutritional Hx/Data Height 1.78 m Height (Calculated Centimeters) 177.8 Current Weight (lbs) 68.039 kg Weight (Calculated Kilograms) 68.0 Weight (Calculated Grams) 04360.9 [place] Body Weight 166 Body Mass Index (BMI) 21.5 Weight Status Approriate GI Symptoms GI Symptoms None Last BM 06/12 x 2 Difficult in: None Skin Integrity/Comment: laceration to left ear Estimated Nutritional Goals BEE in Kcals: Using Current wt Calories/Kcals/Kg 25-30 Kcals Calculated 9357-7629 Protein: Using Current wt Protein g/k Protein Calculated 75 Fluid: ml 1875-2250ml(1ml/kcal) Nutritional Problem No current Nutrition Prob Problem N/A Intervention/Recommendation Comments 1. Continue with [facility] soft chopped diet as ordered. 2. Monitor PO intake, wt, labs and skin integrity 3. F/U as low risk in 7 days, 06/21 Expected Outcomes/Goals Expected Outcomes/Goals 1. PO intake to meet at least 75% of nutritional needs. 2. Wt stability, skin to remain intact, labs to approach WNL.
[2017-07-02] MEDS: Levothyroxine 0.075 Mg Tab PO SCH (06:38)
[2017-07-02] MEDS: Escitalopram Oxalate 5 mg Tab PO SCH ×2 (09:35→09:36)
[2017-07-02] MEDS: FANAPT 8 MG PO SCH ×3 (09:35→16:55)
[2017-07-02] MEDS: Multivitamin Tab PO SCH (09:35)
--- NOTE | 2017-07-02 17:46 | Progress Notes ---
DATE: 07/02/2017 The patient is still somewhat calmer, more cooperative, unable to discharge him at this time due to delays in placements. Apparently staff is being trained at the facility he is going to. He remains ___confused and impoverished__ on exam , but redirectable. No agitation, no escalation of behaviors. No violent behaviors. ASSESSMENT: The patient calmer, more cooperative likely at his baseline. No SI, no psychosis. MEDICATIONS: Noted. PLAN: We will continue to monitor. We are trying to work on a safe discharge plan. The patient cannot take care of himself and needs help with placement. JOB# [id number] YORDAN
--- NOTE | 2017-07-02 19:14 | Internal Medicine Prog Note ---
Internal Medicine Subjective - Subjective Service Date: 07/02/17 Patient seen and examined:: with staff Patient is:: awake, in bed, confused Per staff patient has:: no adverse event Internal Medicine Objective - Results Result Diagrams: 06/29/17 07:15 06/29/17 07:15 Recent Labs: Laboratory Last Values WBC 7.2 Th/cmm (4.8-10.8) 06/29/17 07:15 RBC 3.43 Mil/cmm (3.80-5.80) L 06/29/17 07:15 Hgb 10.4 gm/dL (12-16) L 06/29/17 07:15 Hct 31.0 % (41.0-60) L 06/29/17 07:15 MCV 90.4 fl (80-99) 06/29/17 07:15 MCH 30.2 pg (27.0-31.0) 06/29/17 07:15 MCHC Differential 33.4 pg (28.0-36.0) 06/29/17 07:15 RDW 14.1 % (11.5-20.0) 06/29/17 07:15 Plt Count 265 Th/cmm (150-400) 06/29/17 07:15 MPV 7.0 fl 06/29/17 07:15 Neutrophils % 74.6 % (40.0-80.0) 06/29/17 07:15 Lymphocytes % 14.5 % (20.0-50.0) L 06/29/17 07:15 Monocytes % 7.3 % (2.0-10.0) 06/29/17 07:15 Eosinophils % 3.4 % (0.0-5.0) 06/29/17 07:15 Basophils % 0.2 % (0.0-2.0) 06/29/17 07:15 Sodium 137 mEq/L (136-145) 06/29/17 07:15 Potassium 3.6 mEq/L (3.5-5.1) 06/29/17 07:15 Chloride 104 mEq/L (98-107) 06/29/17 07:15 Carbon Dioxide 26.8 mEq/L (21.0-31.0) 06/29/17 07:15 Anion Gap 9.8 (7.0-16.0) 06/29/17 07:15 BUN 30 mg/dL (7-25) H 06/29/17 07:15 Creatinine 1.2 mg/dL (0.7-1.3) 06/29/17 07:15 Est GFR ( Amer) TNP 06/29/17 07:15 Est GFR (Non-Af Amer) TNP 06/29/17 07:15 BUN/Creatinine Ratio 25.0 06/29/17 07:15 Glucose 100 mg/dL (70-105) 06/29/17 07:15 POC Glucose 134 MG/DL (70 - 105) H 06/29/17 17:10 Hemoglobin A1c % 4.8 % (4.0-6.0) 06/08/17 09:00 Calcium 9.6 mg/dL (8.6-10.3) 06/29/17 07:15 Total Bilirubin 0.3 mg/dL (0.3-1.0) 06/29/17 07:15 AST 11 U/L (13-39) L 06/29/17 07:15 ALT 12 U/L (7-52) 06/29/17 07:15 Alkaline Phosphatase 135 U/L (34-104) H 06/29/17 07:15 Creatine Kinase 41 U/L (30-223) 06/29/17 07:15 Troponin I 0.01 ng/mL (0.01-0.05) 06/29/17 07:15 Total Protein 6.1 gm/dL (6.0-8.3) 06/29/17 07:15 Albumin 3.2 gm/dL (4.2-5.5) L 06/29/17 07:15 Globulin 2.9 gm/dL 06/29/17 07:15 Albumin/Globulin Ratio 1.1 (1.0-1.8) 06/29/17 07:15 Triglycerides 118 mg/dL (<150) 06/08/17 09:00 Cholesterol 189 mg/dL (<200) 06/08/17 09:00 LDL Cholesterol Direct 137 mg/dL (75-193) 06/08/17 09:00 HDL Cholesterol 43 mg/dL (23-92) 06/08/17 09:00 TSH 3.25 uIU/ml (0.34-5.60) 06/08/17 09:00 Urine Source CLEAN C 06/08/17 07:45 Urine Color YELLOW 06/08/17 07:45 Urine Clarity CLEAR (CLEAR) 06/08/17 07:45 Urine pH 6.0 (4.6 - 8.0) 06/08/17 07:45 Ur Specific [place] 1.020 (1.005-1.030) 06/08/17 07:45 Urine Protein NEGATIVE mg/dL (NEGATIVE) 06/08/17 07:45 Urine Glucose (UA) NEGATIVE mg/dL (NEGATIVE) 06/08/17 07:45 Urine Ketones NEGATIVE mg/dL (NEGATIVE) 06/08/17 07:45 Urine Blood NEGATIVE (NEGATIVE) 06/08/17 07:45 Urine Nitrate NEGATIVE (NEGATIVE) 06/08/17 07:45 Urine Bilirubin NEGATIVE (NEGATIVE) 06/08/17 07:45 Urine Urobilinogen 0.2 E.U./dL (0.2 - 1.0) 06/08/17 07:45 Ur Leukocyte Esterase NEGATIVE (NEGATIVE) 06/08/17 07:45 Urine RBC 0-2 /hpf (0-5) H 06/08/17 07:45 Urine WBC 0-2 /hpf (0-5) 06/08/17 07:45 Ur Epithelial Cells RARE /lpf (FEW) 06/08/17 07:45 Urine Bacteria NONE SEEN /hpf (NONE SEEN) 06/08/17 07:45 Salicylates < 25.0 mg/L (30.0-100.0) L 06/08/17 09:00 Urine Opiates Screen POSITIVE (NEGATIVE) H 06/08/17 07:45 Urine Methadone Screen NEGATIVE (NEGATIVE) 06/08/17 07:45 Acetaminophen < 10.0 ug/mL (10.0-30.0) L 06/08/17 09:00 Ur Barbiturates Screen NEGATIVE (NEGATIVE) 06/08/17 07:45 Ur Tricyclics Screen NEGATIVE (NEGATIVE) 06/08/17 07:45 Ur Phencyclidine Scrn NEGATIVE (NEGATIVE) 06/08/17 07:45 Amphetamines Screen NEGATIVE (NEGATIVE) 06/08/17 07:45 U Methamphetamines Scrn NEGATIVE (NEGATIVE) 06/08/17 07:45 U Benzodiazepines Scrn NEGATIVE (NEGATIVE) 06/08/17 07:45 U Cocaine Metab Screen NEGATIVE (NEGATIVE) 06/08/17 07:45 U Cannabinoids Screen NEGATIVE (NEGATIVE) 06/08/17 07:45 Ethyl Alcohol < 10 mg/dL (0-10) 06/08/17 09:00 RPR NONREACTIVE (NONREACTIVE) 06/08/17 09:00 - Physical Exam Vitals and I&O: Vital Signs Temp 97.3 F 07/02/17 15:28 Pulse 75 07/02/17 16:54 Resp 18 07/02/17 15:28 BP 121/65 07/02/17 16:54 Pulse Ox 96 07/02/17 15:28 Intake & Output 07/02/17 07/02/17 07/03/17 06:59 18:59 06:59 Intake Total 240 1000 Balance 240 1000 Intake: Oral 240 1000 Other: # Voids 2 3 Active Medications: Current Medications Acetaminophen (Tylenol) 650 mg PO Q4HR PRN PRN Reason: Mild Pain / Temp above 100 Stop: 08/07/17 13:09 Last Admin: 06/23/17 15:26 Dose: 650 mg Acetaminophen/Hydrocodone Bitart ([place] 5mg/325mg) 1 tab PO Q6H PRN PRN Reason: Pain (Moderate) Stop: 08/21/17 21:46 Al Hydrox/Mg Hydrox/Simethicone (Maalox) 30 ml PO Q4HR PRN PRN Reason: GI DISTRESS Stop: 08/07/17 13:09 Albuterol Sulfate (Albuterol 2.5mg/3ml Neb Ud) 2.5 mg HHN Q8H PRN PRN Reason: Shortness of Breath Ascorbic Acid (Vitamin C) 500 mg PO DAILY [facility] Stop: 08/22/17 08:59 Last Admin: 07/02/17 09:34 Dose: 500 mg Escitalopram Oxalate (Lexapro) 5 mg PO DAILY [facility] PRN Reason: Protocol Stop: 08/25/17 08:59 Last Admin: 07/02/17 09:36 Dose: 5 mg Famotidine (Pepcid) 20 mg PO DAILY [facility] Stop: 08/22/17 08:59 Last Admin: 07/02/17 09:35 Dose: 20 mg Levothyroxine Sodium (Synthroid) 0.075 mg PO QDAC [facility] Stop: 08/22/17 07:29 Last Admin: 07/02/17 06:38 Dose: 0.075 mg Lorazepam (Ativan) 0.5 mg PO Q6HR PRN PRN Reason: Agitation Stop: 08/13/17 16:06 Last Admin: 07/01/17 20:20 Dose: 0.5 mg Magnesium Hydroxide (Milk Of Magnesia) 30 ml PO HS PRN PRN Reason: Constipation Metoprolol Tartrate (Lopressor) 12.5 mg PO BID [facility] Stop: 08/22/17 08:59 Last Admin: 07/02/17 16:54 Dose: 12.5 mg Multivitamins/Vitamin C (Theragran) 1 tab PO DAILY [facility] Stop: 08/08/17 08:59 Last Admin: 07/02/17 09:35 Dose: 1 tab Nitroglycerin (Nitrostat) 0.4 mg SL Q5MIN PRN PRN Reason: Chest Pain Stop: 08/27/17 23:27 Ondansetron HCl (Zofran Odt) 4 mg PO Q8H PRN PRN Reason: Nausea / Vomiting Stop: 08/21/17 21:46 Oxybutynin Chloride (Ditropan) 5 mg PO BID [facility] Stop: 08/22/17 08:59 Last Admin: 07/02/17 16:53 Dose: 5 mg Fanapt (Iloperidone) (8mg Tablet) 1 PO BID [facility] Stop: 08/21/17 16:59 Last Admin: 07/02/17 16:55 Dose: 1 Quetiapine Fumarate (Seroquel) 100 mg PO HS [facility] PRN Reason: Protocol Stop: 08/24/17 15:53 Last Admin: 07/01/17 20:20 Dose: 100 mg Senna (Senna) 17.2 mg PO HS [facility] Stop: 08/22/17 20:59 Last Admin: 07/01/17 20:20 Dose: 17.2 mg Tamsulosin HCl (Flomax) 0.4 mg PO DAILY [facility] Stop: 08/22/17 08:59 Last Admin: 07/02/17 09:34 Dose: 0.4 mg Zolpidem Tartrate (Ambien) 5 mg PO HS PRN PRN Reason: Insomnia Stop: 08/07/17 13:09 Last Admin: 07/01/17 20:20 Dose: 5 mg General: demented HEENT: NC/AT, PERRLA, EOMI, anicteric sclerae, throat clear Neck: Supple, No JVD, No thyromegaly Lungs: CTAB Abdomen: soft, non-tender, non-distended Extremities: clear Neurological: no change Internal Medicine Assmt/Plan - Assessment Assessment: 1.HTN 2.HYPOTHYROIDISM. 3.LEFT EXTERNAL EAR SKIN LESION. 4.CONFUSED. 5.ANEMIA - Plan Plan: CONTINUE ON CURRENT MEDICATION AND DIET. Nutritional Asmnt/Malnutr-PDOC - Dietary Evaluation Malnutrition Findings (Please click <Entered> for more info): Nutritional Asmnt/Malnutrition Start: 06/14/17 09: 57 Text: Status: Complete Freq: Document 06/14/17 09:57 QUINTON (Rec: 06/14/17 10:01 [email or web address]) Nutritional Asmnt/Malnutrition Patient General Information Nutritional Screening Moderate Risk Diagnosis psychosis Pertinent Medical Hx/Surgical Hx DJD, chronic anemia, skin lesion, agitation Subjective Information Per EMR, PO intake 50-100%, avg 75%. Per nurse note, pt only oriented to self. Current Diet Order/ Nutrition Support [facility] soft chopped Pertinent Medications theragran Pertinent Labs 06/08 Na 139, K 3.9, Cl 107, BUN 28, Cr 1.6, Glucose 129, A1c 4.8, Alb 3.6 Nutritional Hx/Data Height 1.78 m Height (Calculated Centimeters) 177.8 Current Weight (lbs) 68.039 kg Weight (Calculated Kilograms) 68.0 Weight (Calculated Grams) 50980.9 [place] Body Weight 166 Body Mass Index (BMI) 21.5 Weight Status Approriate GI Symptoms GI Symptoms None Last BM 06/12 x 2 Difficult in: None Skin Integrity/Comment: laceration to left ear Estimated Nutritional Goals BEE in Kcals: Using Current wt Calories/Kcals/Kg 25-30 Kcals Calculated 4316-3639 Protein: Using Current wt Protein g/k Protein Calculated 75 Fluid: ml 1875-2250ml(1ml/kcal) Nutritional Problem No current Nutrition Prob Problem N/A Intervention/Recommendation Comments 1. Continue with [facility] soft chopped diet as ordered. 2. Monitor PO intake, wt, labs and skin integrity 3. F/U as low risk in 7 days, 06/21 Expected Outcomes/Goals Expected Outcomes/Goals 1. PO intake to meet at least 75% of nutritional needs. 2. Wt stability, skin to remain intact, labs to approach WNL.
[2017-07-03] MEDS: Levothyroxine 0.075 Mg Tab PO SCH (06:35)
[2017-07-03] MEDS: Escitalopram Oxalate 5 mg Tab PO SCH (08:51)
[2017-07-03] MEDS: Multivitamin Tab PO SCH (08:51)
[2017-07-03] MEDS: FANAPT 8 MG PO SCH ×2 (09:38→17:23)
--- NOTE | 2017-07-03 14:04 | General Progress Note ---
Subjective - Review of Systems Service Date: 07/03/17 Subjective: resting comfortably in chair no distress Objective - Results Result Diagrams: 06/29/17 07:15 06/29/17 07:15 Recent Labs: Laboratory Last Values WBC 7.2 Th/cmm (4.8-10.8) 06/29/17 07:15 RBC 3.43 Mil/cmm (3.80-5.80) L 06/29/17 07:15 Hgb 10.4 gm/dL (12-16) L 06/29/17 07:15 Hct 31.0 % (41.0-60) L 06/29/17 07:15 MCV 90.4 fl (80-99) 06/29/17 07:15 MCH 30.2 pg (27.0-31.0) 06/29/17 07:15 MCHC Differential 33.4 pg (28.0-36.0) 06/29/17 07:15 RDW 14.1 % (11.5-20.0) 06/29/17 07:15 Plt Count 265 Th/cmm (150-400) 06/29/17 07:15 MPV 7.0 fl 06/29/17 07:15 Neutrophils % 74.6 % (40.0-80.0) 06/29/17 07:15 Lymphocytes % 14.5 % (20.0-50.0) L 06/29/17 07:15 Monocytes % 7.3 % (2.0-10.0) 06/29/17 07:15 Eosinophils % 3.4 % (0.0-5.0) 06/29/17 07:15 Basophils % 0.2 % (0.0-2.0) 06/29/17 07:15 Sodium 137 mEq/L (136-145) 06/29/17 07:15 Potassium 3.6 mEq/L (3.5-5.1) 06/29/17 07:15 Chloride 104 mEq/L (98-107) 06/29/17 07:15 Carbon Dioxide 26.8 mEq/L (21.0-31.0) 06/29/17 07:15 Anion Gap 9.8 (7.0-16.0) 06/29/17 07:15 BUN 30 mg/dL (7-25) H 06/29/17 07:15 Creatinine 1.2 mg/dL (0.7-1.3) 06/29/17 07:15 Est GFR ( Amer) TNP 06/29/17 07:15 Est GFR (Non-Af Amer) TNP 06/29/17 07:15 BUN/Creatinine Ratio 25.0 06/29/17 07:15 Glucose 100 mg/dL (70-105) 06/29/17 07:15 POC Glucose 134 MG/DL (70 - 105) H 06/29/17 17:10 Hemoglobin A1c % 4.8 % (4.0-6.0) 06/08/17 09:00 Calcium 9.6 mg/dL (8.6-10.3) 06/29/17 07:15 Total Bilirubin 0.3 mg/dL (0.3-1.0) 06/29/17 07:15 AST 11 U/L (13-39) L 06/29/17 07:15 ALT 12 U/L (7-52) 06/29/17 07:15 Alkaline Phosphatase 135 U/L (34-104) H 06/29/17 07:15 Creatine Kinase 41 U/L (30-223) 06/29/17 07:15 Troponin I 0.01 ng/mL (0.01-0.05) 06/29/17 07:15 Total Protein 6.1 gm/dL (6.0-8.3) 06/29/17 07:15 Albumin 3.2 gm/dL (4.2-5.5) L 06/29/17 07:15 Globulin 2.9 gm/dL 06/29/17 07:15 Albumin/Globulin Ratio 1.1 (1.0-1.8) 06/29/17 07:15 Triglycerides 118 mg/dL (<150) 06/08/17 09:00 Cholesterol 189 mg/dL (<200) 06/08/17 09:00 LDL Cholesterol Direct 137 mg/dL (75-193) 06/08/17 09:00 HDL Cholesterol 43 mg/dL (23-92) 06/08/17 09:00 TSH 3.25 uIU/ml (0.34-5.60) 06/08/17 09:00 Urine Source CLEAN C 06/08/17 07:45 Urine Color YELLOW 06/08/17 07:45 Urine Clarity CLEAR (CLEAR) 06/08/17 07:45 Urine pH 6.0 (4.6 - 8.0) 06/08/17 07:45 Ur Specific [place] 1.020 (1.005-1.030) 06/08/17 07:45 Urine Protein NEGATIVE mg/dL (NEGATIVE) 06/08/17 07:45 Urine Glucose (UA) NEGATIVE mg/dL (NEGATIVE) 06/08/17 07:45 Urine Ketones NEGATIVE mg/dL (NEGATIVE) 06/08/17 07:45 Urine Blood NEGATIVE (NEGATIVE) 06/08/17 07:45 Urine Nitrate NEGATIVE (NEGATIVE) 06/08/17 07:45 Urine Bilirubin NEGATIVE (NEGATIVE) 06/08/17 07:45 Urine Urobilinogen 0.2 E.U./dL (0.2 - 1.0) 06/08/17 07:45 Ur Leukocyte Esterase NEGATIVE (NEGATIVE) 06/08/17 07:45 Urine RBC 0-2 /hpf (0-5) H 06/08/17 07:45 Urine WBC 0-2 /hpf (0-5) 06/08/17 07:45 Ur Epithelial Cells RARE /lpf (FEW) 06/08/17 07:45 Urine Bacteria NONE SEEN /hpf (NONE SEEN) 06/08/17 07:45 Salicylates < 25.0 mg/L (30.0-100.0) L 06/08/17 09:00 Urine Opiates Screen POSITIVE (NEGATIVE) H 06/08/17 07:45 Urine Methadone Screen NEGATIVE (NEGATIVE) 06/08/17 07:45 Acetaminophen < 10.0 ug/mL (10.0-30.0) L 06/08/17 09:00 Ur Barbiturates Screen NEGATIVE (NEGATIVE) 06/08/17 07:45 Ur Tricyclics Screen NEGATIVE (NEGATIVE) 06/08/17 07:45 Ur Phencyclidine Scrn NEGATIVE (NEGATIVE) 06/08/17 07:45 Amphetamines Screen NEGATIVE (NEGATIVE) 06/08/17 07:45 U Methamphetamines Scrn NEGATIVE (NEGATIVE) 06/08/17 07:45 U Benzodiazepines Scrn NEGATIVE (NEGATIVE) 06/08/17 07:45 U Cocaine Metab Screen NEGATIVE (NEGATIVE) 06/08/17 07:45 U Cannabinoids Screen NEGATIVE (NEGATIVE) 06/08/17 07:45 Ethyl Alcohol < 10 mg/dL (0-10) 06/08/17 09:00 RPR NONREACTIVE (NONREACTIVE) 06/08/17 09:00 - Physical Exam Vitals and I&O: Vital Signs Temp 98.5 F 07/03/17 06:31 Pulse 102 07/03/17 08:51 Resp 20 07/03/17 11:26 BP 122/69 07/03/17 08:51 Pulse Ox 95 07/03/17 06:31 Intake & Output 07/02/17 07/03/17 07/03/17 18:59 06:59 18:59 Intake Total 1000 Balance 1000 Intake: Oral 1000 Other: # Voids 3 Active Medications: Current Medications Acetaminophen (Tylenol) 650 mg PO Q4HR PRN PRN Reason: Mild Pain / Temp above 100 Stop: 08/07/17 13:09 Last Admin: 06/23/17 15:26 Dose: 650 mg Acetaminophen/Hydrocodone Bitart ([place] 5mg/325mg) 1 tab PO Q6H PRN PRN Reason: Pain (Moderate) Stop: 08/21/17 21:46 Last Admin: 07/03/17 08:51 Dose: 1 tab Al Hydrox/Mg Hydrox/Simethicone (Maalox) 30 ml PO Q4HR PRN PRN Reason: GI DISTRESS Stop: 08/07/17 13:09 Albuterol Sulfate (Albuterol 2.5mg/3ml Neb Ud) 2.5 mg HHN Q8H PRN PRN Reason: Shortness of Breath Ascorbic Acid (Vitamin C) 500 mg PO DAILY [facility] Stop: 08/22/17 08:59 Last Admin: 07/03/17 08:51 Dose: 500 mg Escitalopram Oxalate (Lexapro) 5 mg PO DAILY [facility] PRN Reason: Protocol Stop: 08/25/17 08:59 Last Admin: 07/03/17 08:51 Dose: 5 mg Famotidine (Pepcid) 20 mg PO DAILY [facility] Stop: 08/22/17 08:59 Last Admin: 07/03/17 08:51 Dose: 20 mg Levothyroxine Sodium (Synthroid) 0.075 mg PO QDAC [facility] Stop: 08/22/17 07:29 Last Admin: 07/03/17 06:35 Dose: 0.075 mg Lorazepam (Ativan) 0.5 mg PO Q6HR PRN PRN Reason: Agitation Stop: 08/13/17 16:06 Last Admin: 07/03/17 09:38 Dose: 0.5 mg Magnesium Hydroxide (Milk Of Magnesia) 30 ml PO HS PRN PRN Reason: Constipation Metoprolol Tartrate (Lopressor) 12.5 mg PO BID [facility] Stop: 08/22/17 08:59 Last Admin: 07/03/17 08:51 Dose: 12.5 mg Multivitamins/Vitamin C (Theragran) 1 tab PO DAILY [facility] Stop: 08/08/17 08:59 Last Admin: 07/03/17 08:51 Dose: 1 tab Nitroglycerin (Nitrostat) 0.4 mg SL Q5MIN PRN PRN Reason: Chest Pain Stop: 08/27/17 23:27 Ondansetron HCl (Zofran Odt) 4 mg PO Q8H PRN PRN Reason: Nausea / Vomiting Stop: 08/21/17 21:46 Oxybutynin Chloride (Ditropan) 5 mg PO BID [facility] Stop: 08/22/17 08:59 Last Admin: 07/03/17 08:51 Dose: 5 mg Fanapt (Iloperidone) (8mg Tablet) 1 PO BID [facility] Stop: 08/21/17 16:59 Last Admin: 07/03/17 09:38 Dose: Not Given Quetiapine Fumarate (Seroquel) 100 mg PO HS [facility] PRN Reason: Protocol Stop: 08/24/17 15:53 Last Admin: 07/02/17 21:12 Dose: 100 mg Senna (Senna) 17.2 mg PO HS [facility] Stop: 08/22/17 20:59 Last Admin: 07/02/17 21:12 Dose: 17.2 mg Tamsulosin HCl (Flomax) 0.4 mg PO DAILY [facility] Stop: 08/22/17 08:59 Last Admin: 07/03/17 08:51 Dose: 0.4 mg Zolpidem Tartrate (Ambien) 5 mg PO HS PRN PRN Reason: Insomnia Stop: 08/07/17 13:09 Last Admin: 07/01/17 20:20 Dose: 5 mg General: Alert, Oriented x3, Cooperative HEENT: Atraumatic, PERRLA, EOMI Neck: Supple, JVD, Thyromegaly Cardiovascular: Regular rate, Normal S1, Normal S2 Lungs: Clear to auscultation Abdomen: Bowel sounds, Soft Assessment/Plan - Assessment Assessment: 1.ANEMIA 2.DJD. 3.LEFT EXTERNAL EAR SKIN LESION. 4.DEMENTIA. - Plan Plan: cont current treatment Nutritional Asmnt/Malnutr-PDOC - Dietary Evaluation Malnutrition Findings (Please click <Entered> for more info): Nutritional Asmnt/Malnutrition Start: 06/14/17 09: 57 Text: Status: Complete Freq: Document 06/14/17 09:57 REJI (Rec: 06/14/17 10:01 REJI [email or web address]) Nutritional Asmnt/Malnutrition Patient General Information Nutritional Screening Moderate Risk Diagnosis psychosis Pertinent Medical Hx/Surgical Hx DJD, chronic anemia, skin lesion, agitation Subjective Information Per EMR, PO intake 50-100%, avg 75%. Per nurse note, pt only oriented to self. Current Diet Order/ Nutrition Support [facility] soft chopped Pertinent Medications theragran Pertinent Labs 06/08 Na 139, K 3.9, Cl 107, BUN 28, Cr 1.6, Glucose 129, A1c 4.8, Alb 3.6 Nutritional Hx/Data Height 1.78 m Height (Calculated Centimeters) 177.8 Current Weight (lbs) 68.039 kg Weight (Calculated Kilograms) 68.0 Weight (Calculated Grams) 90769.9 [place] Body Weight 166 Body Mass Index (BMI) 21.5 Weight Status Approriate GI Symptoms GI Symptoms None Last BM 06/12 x 2 Difficult in: None Skin Integrity/Comment: laceration to left ear Estimated Nutritional Goals BEE in Kcals: Using Current wt Calories/Kcals/Kg 25-30 Kcals Calculated 2922-4445 Protein: Using Current wt Protein g/k Protein Calculated 75 Fluid: ml 1875-2250ml(1ml/kcal) Nutritional Problem No current Nutrition Prob Problem N/A Intervention/Recommendation Comments 1. Continue with [facility] soft chopped diet as ordered. 2. Monitor PO intake, wt, labs and skin integrity 3. F/U as low risk in 7 days, 06/21 Expected Outcomes/Goals Expected Outcomes/Goals 1. PO intake to meet at least 75% of nutritional needs. 2. Wt stability, skin to remain intact, labs to approach WNL.
--- NOTE | 2017-07-03 21:35 | Progress Notes ---
DATE: 07/03/2017 SUBJECTIVE: The patient was seen, chart reviewed, discussed with staff. The patient is seen today, on 07/03/2017; calm, cooperative, likely approaching his baseline; less picking __at his ear__ behaviors; less agitation; remains confused on exam; but redirectable; needs a lot of help, redirection, and prompting. No escalation of behaviors. No violent behaviors. ASSESSMENT: The patient is calmer, more cooperative, likely at his baseline. MEDICATIONS: Noted. PLAN: We are working on a safe discharge plan. He does not have a confirmed discharge plan. At this time, he is considered gravely disabled. We are monitoring him until a safe discharge plan is confirmed. JOB# [id number] YORDAN
[2017-07-04] MEDS: Levothyroxine 0.075 Mg Tab PO SCH (07:00)
--- NOTE | 2017-07-04 08:10 | General Progress Note ---
Subjective - Review of Systems Service Date: 07/04/17 Subjective: resting comfortably in chair no distress Objective - Results Result Diagrams: 06/29/17 07:15 06/29/17 07:15 Recent Labs: Laboratory Last Values WBC 7.2 Th/cmm (4.8-10.8) 06/29/17 07:15 RBC 3.43 Mil/cmm (3.80-5.80) L 06/29/17 07:15 Hgb 10.4 gm/dL (12-16) L 06/29/17 07:15 Hct 31.0 % (41.0-60) L 06/29/17 07:15 MCV 90.4 fl (80-99) 06/29/17 07:15 MCH 30.2 pg (27.0-31.0) 06/29/17 07:15 MCHC Differential 33.4 pg (28.0-36.0) 06/29/17 07:15 RDW 14.1 % (11.5-20.0) 06/29/17 07:15 Plt Count 265 Th/cmm (150-400) 06/29/17 07:15 MPV 7.0 fl 06/29/17 07:15 Neutrophils % 74.6 % (40.0-80.0) 06/29/17 07:15 Lymphocytes % 14.5 % (20.0-50.0) L 06/29/17 07:15 Monocytes % 7.3 % (2.0-10.0) 06/29/17 07:15 Eosinophils % 3.4 % (0.0-5.0) 06/29/17 07:15 Basophils % 0.2 % (0.0-2.0) 06/29/17 07:15 Sodium 137 mEq/L (136-145) 06/29/17 07:15 Potassium 3.6 mEq/L (3.5-5.1) 06/29/17 07:15 Chloride 104 mEq/L (98-107) 06/29/17 07:15 Carbon Dioxide 26.8 mEq/L (21.0-31.0) 06/29/17 07:15 Anion Gap 9.8 (7.0-16.0) 06/29/17 07:15 BUN 30 mg/dL (7-25) H 06/29/17 07:15 Creatinine 1.2 mg/dL (0.7-1.3) 06/29/17 07:15 Est GFR ( Amer) TNP 06/29/17 07:15 Est GFR (Non-Af Amer) TNP 06/29/17 07:15 BUN/Creatinine Ratio 25.0 06/29/17 07:15 Glucose 100 mg/dL (70-105) 06/29/17 07:15 POC Glucose 134 MG/DL (70 - 105) H 06/29/17 17:10 Hemoglobin A1c % 4.8 % (4.0-6.0) 06/08/17 09:00 Calcium 9.6 mg/dL (8.6-10.3) 06/29/17 07:15 Total Bilirubin 0.3 mg/dL (0.3-1.0) 06/29/17 07:15 AST 11 U/L (13-39) L 06/29/17 07:15 ALT 12 U/L (7-52) 06/29/17 07:15 Alkaline Phosphatase 135 U/L (34-104) H 06/29/17 07:15 Creatine Kinase 41 U/L (30-223) 06/29/17 07:15 Troponin I 0.01 ng/mL (0.01-0.05) 06/29/17 07:15 Total Protein 6.1 gm/dL (6.0-8.3) 06/29/17 07:15 Albumin 3.2 gm/dL (4.2-5.5) L 06/29/17 07:15 Globulin 2.9 gm/dL 06/29/17 07:15 Albumin/Globulin Ratio 1.1 (1.0-1.8) 06/29/17 07:15 Triglycerides 118 mg/dL (<150) 06/08/17 09:00 Cholesterol 189 mg/dL (<200) 06/08/17 09:00 LDL Cholesterol Direct 137 mg/dL (75-193) 06/08/17 09:00 HDL Cholesterol 43 mg/dL (23-92) 06/08/17 09:00 TSH 3.25 uIU/ml (0.34-5.60) 06/08/17 09:00 Urine Source CLEAN C 06/08/17 07:45 Urine Color YELLOW 06/08/17 07:45 Urine Clarity CLEAR (CLEAR) 06/08/17 07:45 Urine pH 6.0 (4.6 - 8.0) 06/08/17 07:45 Ur Specific [place] 1.020 (1.005-1.030) 06/08/17 07:45 Urine Protein NEGATIVE mg/dL (NEGATIVE) 06/08/17 07:45 Urine Glucose (UA) NEGATIVE mg/dL (NEGATIVE) 06/08/17 07:45 Urine Ketones NEGATIVE mg/dL (NEGATIVE) 06/08/17 07:45 Urine Blood NEGATIVE (NEGATIVE) 06/08/17 07:45 Urine Nitrate NEGATIVE (NEGATIVE) 06/08/17 07:45 Urine Bilirubin NEGATIVE (NEGATIVE) 06/08/17 07:45 Urine Urobilinogen 0.2 E.U./dL (0.2 - 1.0) 06/08/17 07:45 Ur Leukocyte Esterase NEGATIVE (NEGATIVE) 06/08/17 07:45 Urine RBC 0-2 /hpf (0-5) H 06/08/17 07:45 Urine WBC 0-2 /hpf (0-5) 06/08/17 07:45 Ur Epithelial Cells RARE /lpf (FEW) 06/08/17 07:45 Urine Bacteria NONE SEEN /hpf (NONE SEEN) 06/08/17 07:45 Salicylates < 25.0 mg/L (30.0-100.0) L 06/08/17 09:00 Urine Opiates Screen POSITIVE (NEGATIVE) H 06/08/17 07:45 Urine Methadone Screen NEGATIVE (NEGATIVE) 06/08/17 07:45 Acetaminophen < 10.0 ug/mL (10.0-30.0) L 06/08/17 09:00 Ur Barbiturates Screen NEGATIVE (NEGATIVE) 06/08/17 07:45 Ur Tricyclics Screen NEGATIVE (NEGATIVE) 06/08/17 07:45 Ur Phencyclidine Scrn NEGATIVE (NEGATIVE) 06/08/17 07:45 Amphetamines Screen NEGATIVE (NEGATIVE) 06/08/17 07:45 U Methamphetamines Scrn NEGATIVE (NEGATIVE) 06/08/17 07:45 U Benzodiazepines Scrn NEGATIVE (NEGATIVE) 06/08/17 07:45 U Cocaine Metab Screen NEGATIVE (NEGATIVE) 06/08/17 07:45 U Cannabinoids Screen NEGATIVE (NEGATIVE) 06/08/17 07:45 Ethyl Alcohol < 10 mg/dL (0-10) 06/08/17 09:00 RPR NONREACTIVE (NONREACTIVE) 06/08/17 09:00 - Physical Exam Vitals and I&O: Vital Signs Temp 97.9 F 07/04/17 07:02 Pulse 51 07/04/17 07:02 Resp 18 07/04/17 07:02 BP 126/62 07/04/17 07:02 Pulse Ox 95 07/04/17 07:02 Intake & Output 07/03/17 07/04/17 07/04/17 18:59 06:59 18:59 Intake Total 1000 0 Balance 1000 0 Intake: Oral 1000 0 Other: # Voids 3 1 Active Medications: Current Medications Acetaminophen (Tylenol) 650 mg PO Q4HR PRN PRN Reason: Mild Pain / Temp above 100 Stop: 08/07/17 13:09 Last Admin: 06/23/17 15:26 Dose: 650 mg Acetaminophen/Hydrocodone Bitart ([place] 5mg/325mg) 1 tab PO Q6H PRN PRN Reason: Pain (Moderate) Stop: 08/21/17 21:46 Last Admin: 07/03/17 08:51 Dose: 1 tab Al Hydrox/Mg Hydrox/Simethicone (Maalox) 30 ml PO Q4HR PRN PRN Reason: GI DISTRESS Stop: 08/07/17 13:09 Albuterol Sulfate (Albuterol 2.5mg/3ml Neb Ud) 2.5 mg HHN Q8H PRN PRN Reason: Shortness of Breath Ascorbic Acid (Vitamin C) 500 mg PO DAILY [facility] Stop: 08/22/17 08:59 Last Admin: 07/03/17 08:51 Dose: 500 mg Escitalopram Oxalate (Lexapro) 5 mg PO DAILY [facility] PRN Reason: Protocol Stop: 08/25/17 08:59 Last Admin: 07/03/17 08:51 Dose: 5 mg Famotidine (Pepcid) 20 mg PO DAILY [facility] Stop: 08/22/17 08:59 Last Admin: 07/03/17 08:51 Dose: 20 mg Levothyroxine Sodium (Synthroid) 0.075 mg PO QDAC [facility] Stop: 08/22/17 07:29 Last Admin: 07/03/17 06:35 Dose: 0.075 mg Lorazepam (Ativan) 0.5 mg PO Q6HR PRN PRN Reason: Agitation Stop: 08/13/17 16:06 Last Admin: 07/03/17 09:38 Dose: 0.5 mg Magnesium Hydroxide (Milk Of Magnesia) 30 ml PO HS PRN PRN Reason: Constipation Metoprolol Tartrate (Lopressor) 12.5 mg PO BID [facility] Stop: 08/22/17 08:59 Last Admin: 07/03/17 17:23 Dose: Not Given Multivitamins/Vitamin C (Theragran) 1 tab PO DAILY [facility] Stop: 08/08/17 08:59 Last Admin: 07/03/17 08:51 Dose: 1 tab Nitroglycerin (Nitrostat) 0.4 mg SL Q5MIN PRN PRN Reason: Chest Pain Stop: 08/27/17 23:27 Ondansetron HCl (Zofran Odt) 4 mg PO Q8H PRN PRN Reason: Nausea / Vomiting Stop: 08/21/17 21:46 Oxybutynin Chloride (Ditropan) 5 mg PO BID [facility] Stop: 08/22/17 08:59 Last Admin: 07/03/17 17:23 Dose: Not Given Fanapt (Iloperidone) (8mg Tablet) 1 PO BID [facility] Stop: 08/21/17 16:59 Last Admin: 07/03/17 17:23 Dose: Not Given Quetiapine Fumarate (Seroquel) 100 mg PO HS [facility] PRN Reason: Protocol Stop: 08/24/17 15:53 Last Admin: 07/03/17 20:50 Dose: 100 mg Senna (Senna) 17.2 mg PO HS [facility] Stop: 08/22/17 20:59 Last Admin: 07/03/17 20:50 Dose: 17.2 mg Tamsulosin HCl (Flomax) 0.4 mg PO DAILY [facility] Stop: 08/22/17 08:59 Last Admin: 07/03/17 08:51 Dose: 0.4 mg Zolpidem Tartrate (Ambien) 5 mg PO HS PRN PRN Reason: Insomnia Stop: 08/07/17 13:09 Last Admin: 07/03/17 20:50 Dose: 5 mg General: Alert, Oriented x3, Cooperative HEENT: Atraumatic, PERRLA, EOMI Neck: Supple, JVD, Thyromegaly Cardiovascular: Regular rate, Normal S1, Normal S2 Lungs: Clear to auscultation Abdomen: Bowel sounds, Soft Assessment/Plan - Assessment Assessment: 1.ANEMIA 2.DJD. 3.LEFT EXTERNAL EAR SKIN LESION. 4.DEMENTIA. - Plan Plan: cont current treatment Nutritional Asmnt/Malnutr-PDOC - Dietary Evaluation Malnutrition Findings (Please click <Entered> for more info): Nutritional Asmnt/Malnutrition Start: 06/14/17 09: 57 Text: Status: Complete Freq: Document 06/14/17 09:57 REJI (Rec: 06/14/17 10:01 [facility] [id number]) Nutritional Asmnt/Malnutrition Patient General Information Nutritional Screening Moderate Risk Diagnosis psychosis Pertinent Medical Hx/Surgical Hx DJD, chronic anemia, skin lesion, agitation Subjective Information Per EMR, PO intake 50-100%, avg 75%. Per nurse note, pt only oriented to self. Current Diet Order/ Nutrition Support [facility] soft chopped Pertinent Medications theragran Pertinent Labs 06/08 Na 139, K 3.9, Cl 107, BUN 28, Cr 1.6, Glucose 129, A1c 4.8, Alb 3.6 Nutritional Hx/Data Height 1.78 m Height (Calculated Centimeters) 177.8 Current Weight (lbs) 68.039 kg Weight (Calculated Kilograms) 68.0 Weight (Calculated Grams) 46466.9 [place] Body Weight 166 Body Mass Index (BMI) 21.5 Weight Status Approriate GI Symptoms GI Symptoms None Last BM 06/12 x 2 Difficult in: None Skin Integrity/Comment: laceration to left ear Estimated Nutritional Goals BEE in Kcals: Using Current wt Calories/Kcals/Kg 25-30 Kcals Calculated 9800-7386 Protein: Using Current wt Protein g/k Protein Calculated 75 Fluid: ml 1875-2250ml(1ml/kcal) Nutritional Problem No current Nutrition Prob Problem N/A Intervention/Recommendation Comments 1. Continue with [facility] soft chopped diet as ordered. 2. Monitor PO intake, wt, labs and skin integrity 3. F/U as low risk in 7 days, 06/21 Expected Outcomes/Goals Expected Outcomes/Goals 1. PO intake to meet at least 75% of nutritional needs. 2. Wt stability, skin to remain intact, labs to approach WNL.
[2017-07-04] MEDS: Escitalopram Oxalate 5 mg Tab PO SCH (10:34)
[2017-07-04] MEDS: Multivitamin Tab PO SCH (10:35)
[2017-07-04] MEDS: FANAPT 8 MG PO SCH ×2 (10:36→17:03)
--- NOTE | 2017-07-04 16:07 | Progress Notes ---
DATE: 07/04/2017 SUBJECTIVE: The patient noted to be calm, cooperative, less pricking at his ear, is less agitation and still very confused, disoriented. History of developmental disability. It is unclear if he also has dementia. This is a difficult thing to assess given his history, still need a lot of help, redirection, prompting; however, no escalation of behaviors. No violent behaviors, getting along well with staff and peers. No aggression. ASSESSMENT: The patient calmer, more cooperative. Medications noted. PLAN: We are trying to confirm the discharge plan. We will continue medications at current dose. No changes at this time. JOB# [id number]
[2017-07-05] MEDS: Levothyroxine 0.075 Mg Tab PO SCH (06:43)
[2017-07-05] MEDS: Escitalopram Oxalate 5 mg Tab PO SCH (10:09)
[2017-07-05] MEDS: Multivitamin Tab PO SCH (10:10)
[2017-07-05] MEDS: FANAPT 8 MG PO SCH ×2 (10:45→18:52)
--- NOTE | 2017-07-05 18:19 | Internal Medicine Prog Note ---
Internal Medicine Subjective - Subjective Service Date: 07/05/17 Patient seen and examined:: with staff (HE DENIES CHEST PAIN) Patient is:: awake, in bed, confused Per staff patient has:: no adverse event Internal Medicine Objective - Results Result Diagrams: 06/29/17 07:15 06/29/17 07:15 Recent Labs: Laboratory Last Values WBC 7.2 Th/cmm (4.8-10.8) 06/29/17 07:15 RBC 3.43 Mil/cmm (3.80-5.80) L 06/29/17 07:15 Hgb 10.4 gm/dL (12-16) L 06/29/17 07:15 Hct 31.0 % (41.0-60) L 06/29/17 07:15 MCV 90.4 fl (80-99) 06/29/17 07:15 MCH 30.2 pg (27.0-31.0) 06/29/17 07:15 MCHC Differential 33.4 pg (28.0-36.0) 06/29/17 07:15 RDW 14.1 % (11.5-20.0) 06/29/17 07:15 Plt Count 265 Th/cmm (150-400) 06/29/17 07:15 MPV 7.0 fl 06/29/17 07:15 Neutrophils % 74.6 % (40.0-80.0) 06/29/17 07:15 Lymphocytes % 14.5 % (20.0-50.0) L 06/29/17 07:15 Monocytes % 7.3 % (2.0-10.0) 06/29/17 07:15 Eosinophils % 3.4 % (0.0-5.0) 06/29/17 07:15 Basophils % 0.2 % (0.0-2.0) 06/29/17 07:15 Sodium 137 mEq/L (136-145) 06/29/17 07:15 Potassium 3.6 mEq/L (3.5-5.1) 06/29/17 07:15 Chloride 104 mEq/L (98-107) 06/29/17 07:15 Carbon Dioxide 26.8 mEq/L (21.0-31.0) 06/29/17 07:15 Anion Gap 9.8 (7.0-16.0) 06/29/17 07:15 BUN 30 mg/dL (7-25) H 06/29/17 07:15 Creatinine 1.2 mg/dL (0.7-1.3) 06/29/17 07:15 Est GFR ( Amer) TNP 06/29/17 07:15 Est GFR (Non-Af Amer) TNP 06/29/17 07:15 BUN/Creatinine Ratio 25.0 06/29/17 07:15 Glucose 100 mg/dL (70-105) 06/29/17 07:15 POC Glucose 134 MG/DL (70 - 105) H 06/29/17 17:10 Hemoglobin A1c % 4.8 % (4.0-6.0) 06/08/17 09:00 Calcium 9.6 mg/dL (8.6-10.3) 06/29/17 07:15 Total Bilirubin 0.3 mg/dL (0.3-1.0) 06/29/17 07:15 AST 11 U/L (13-39) L 06/29/17 07:15 ALT 12 U/L (7-52) 06/29/17 07:15 Alkaline Phosphatase 135 U/L (34-104) H 06/29/17 07:15 Creatine Kinase 41 U/L (30-223) 06/29/17 07:15 Troponin I 0.01 ng/mL (0.01-0.05) 06/29/17 07:15 Total Protein 6.1 gm/dL (6.0-8.3) 06/29/17 07:15 Albumin 3.2 gm/dL (4.2-5.5) L 06/29/17 07:15 Globulin 2.9 gm/dL 06/29/17 07:15 Albumin/Globulin Ratio 1.1 (1.0-1.8) 06/29/17 07:15 Triglycerides 118 mg/dL (<150) 06/08/17 09:00 Cholesterol 189 mg/dL (<200) 06/08/17 09:00 LDL Cholesterol Direct 137 mg/dL (75-193) 06/08/17 09:00 HDL Cholesterol 43 mg/dL (23-92) 06/08/17 09:00 TSH 3.25 uIU/ml (0.34-5.60) 06/08/17 09:00 Urine Source CLEAN C 06/08/17 07:45 Urine Color YELLOW 06/08/17 07:45 Urine Clarity CLEAR (CLEAR) 06/08/17 07:45 Urine pH 6.0 (4.6 - 8.0) 06/08/17 07:45 Ur Specific [place] 1.020 (1.005-1.030) 06/08/17 07:45 Urine Protein NEGATIVE mg/dL (NEGATIVE) 06/08/17 07:45 Urine Glucose (UA) NEGATIVE mg/dL (NEGATIVE) 06/08/17 07:45 Urine Ketones NEGATIVE mg/dL (NEGATIVE) 06/08/17 07:45 Urine Blood NEGATIVE (NEGATIVE) 06/08/17 07:45 Urine Nitrate NEGATIVE (NEGATIVE) 06/08/17 07:45 Urine Bilirubin NEGATIVE (NEGATIVE) 06/08/17 07:45 Urine Urobilinogen 0.2 E.U./dL (0.2 - 1.0) 06/08/17 07:45 Ur Leukocyte Esterase NEGATIVE (NEGATIVE) 06/08/17 07:45 Urine RBC 0-2 /hpf (0-5) H 06/08/17 07:45 Urine WBC 0-2 /hpf (0-5) 06/08/17 07:45 Ur Epithelial Cells RARE /lpf (FEW) 06/08/17 07:45 Urine Bacteria NONE SEEN /hpf (NONE SEEN) 06/08/17 07:45 Salicylates < 25.0 mg/L (30.0-100.0) L 06/08/17 09:00 Urine Opiates Screen POSITIVE (NEGATIVE) H 06/08/17 07:45 Urine Methadone Screen NEGATIVE (NEGATIVE) 06/08/17 07:45 Acetaminophen < 10.0 ug/mL (10.0-30.0) L 06/08/17 09:00 Ur Barbiturates Screen NEGATIVE (NEGATIVE) 06/08/17 07:45 Ur Tricyclics Screen NEGATIVE (NEGATIVE) 06/08/17 07:45 Ur Phencyclidine Scrn NEGATIVE (NEGATIVE) 06/08/17 07:45 Amphetamines Screen NEGATIVE (NEGATIVE) 06/08/17 07:45 U Methamphetamines Scrn NEGATIVE (NEGATIVE) 06/08/17 07:45 U Benzodiazepines Scrn NEGATIVE (NEGATIVE) 06/08/17 07:45 U Cocaine Metab Screen NEGATIVE (NEGATIVE) 06/08/17 07:45 U Cannabinoids Screen NEGATIVE (NEGATIVE) 06/08/17 07:45 Ethyl Alcohol < 10 mg/dL (0-10) 06/08/17 09:00 RPR NONREACTIVE (NONREACTIVE) 06/08/17 09:00 - Physical Exam Vitals and I&O: Vital Signs Temp 98.2 F 07/05/17 14:00 Pulse 95 07/05/17 14:00 Resp 20 07/05/17 14:00 BP 132/60 07/05/17 14:00 Pulse Ox 96 07/05/17 14:00 Intake & Output 07/04/17 07/05/17 07/05/17 18:59 06:59 18:59 Intake Total 900 240 950 Balance 900 240 950 Intake: Oral 900 240 950 Other: # Voids 4 1 4 # Bowel Movements 1 1 Active Medications: Current Medications Acetaminophen (Tylenol) 650 mg PO Q4HR PRN PRN Reason: Mild Pain / Temp above 100 Stop: 08/07/17 13:09 Last Admin: 06/23/17 15:26 Dose: 650 mg Acetaminophen/Hydrocodone Bitart ([place] 5mg/325mg) 1 tab PO Q6H PRN PRN Reason: Pain (Moderate) Stop: 08/21/17 21:46 Last Admin: 07/03/17 08:51 Dose: 1 tab Al Hydrox/Mg Hydrox/Simethicone (Maalox) 30 ml PO Q4HR PRN PRN Reason: GI DISTRESS Stop: 08/07/17 13:09 Albuterol Sulfate (Albuterol 2.5mg/3ml Neb Ud) 2.5 mg HHN Q8H PRN PRN Reason: Shortness of Breath Ascorbic Acid (Vitamin C) 500 mg PO DAILY [facility] Stop: 08/22/17 08:59 Last Admin: 07/05/17 10:09 Dose: 500 mg Escitalopram Oxalate (Lexapro) 5 mg PO DAILY [facility] PRN Reason: Protocol Stop: 08/25/17 08:59 Last Admin: 07/05/17 10:09 Dose: 5 mg Famotidine (Pepcid) 20 mg PO DAILY [facility] Stop: 08/22/17 08:59 Last Admin: 07/05/17 10:10 Dose: 20 mg Levothyroxine Sodium (Synthroid) 0.075 mg PO QDAC [facility] Stop: 08/22/17 07:29 Last Admin: 07/05/17 06:43 Dose: 0.075 mg Lorazepam (Ativan) 0.5 mg PO Q6HR PRN PRN Reason: Agitation Stop: 08/13/17 16:06 Last Admin: 07/05/17 10:09 Dose: 0.5 mg Magnesium Hydroxide (Milk Of Magnesia) 30 ml PO HS PRN PRN Reason: Constipation Metoprolol Tartrate (Lopressor) 12.5 mg PO BID [facility] Stop: 08/22/17 08:59 Last Admin: 07/05/17 10:10 Dose: Not Given Multivitamins/Vitamin C (Theragran) 1 tab PO DAILY [facility] Stop: 08/08/17 08:59 Last Admin: 07/05/17 10:10 Dose: 1 tab Nitroglycerin (Nitrostat) 0.4 mg SL Q5MIN PRN PRN Reason: Chest Pain Stop: 08/27/17 23:27 Ondansetron HCl (Zofran Odt) 4 mg PO Q8H PRN PRN Reason: Nausea / Vomiting Stop: 08/21/17 21:46 Oxybutynin Chloride (Ditropan) 5 mg PO BID [facility] Stop: 08/22/17 08:59 Last Admin: 07/05/17 10:09 Dose: 5 mg Fanapt (Iloperidone) (8mg Tablet) 1 PO BID [facility] Stop: 08/21/17 16:59 Last Admin: 07/05/17 10:45 Dose: 1 Quetiapine Fumarate (Seroquel) 100 mg PO HS [facility] PRN Reason: Protocol Stop: 08/24/17 15:53 Last Admin: 07/04/17 20:53 Dose: 100 mg Senna (Senna) 17.2 mg PO HS [facility] Stop: 08/22/17 20:59 Last Admin: 07/04/17 20:53 Dose: 17.2 mg Tamsulosin HCl (Flomax) 0.4 mg PO DAILY [facility] Stop: 08/22/17 08:59 Last Admin: 07/05/17 10:09 Dose: 0.4 mg Zolpidem Tartrate (Ambien) 5 mg PO HS PRN PRN Reason: Insomnia Stop: 08/07/17 13:09 Last Admin: 07/03/17 20:50 Dose: 5 mg General: demented HEENT: NC/AT, PERRLA, EOMI, anicteric sclerae, throat clear Neck: Supple, No JVD, No thyromegaly Lungs: CTAB Abdomen: soft, non-tender, non-distended Extremities: clear Neurological: no change Internal Medicine Assmt/Plan - Assessment Assessment: 1.HTN 2.HYPOTHYROIDISM. 3.LEFT EXTERNAL EAR SKIN LESION. 4.CONFUSED. 5.ANEMIA - Plan Plan: CONTINUE ON CURRENT MEDICATION AND DIET. Nutritional Asmnt/Malnutr-PDOC - Dietary Evaluation Malnutrition Findings (Please click <Entered> for more info): Nutritional Asmnt/Malnutrition Start: 06/14/17 09: 57 Text: Status: Complete Freq: Document 06/14/17 09:57 [facility] (Rec: 06/14/17 10:01 [facility] [email or web address]) Nutritional Asmnt/Malnutrition Patient General Information Nutritional Screening Moderate Risk Diagnosis psychosis Pertinent Medical Hx/Surgical Hx DJD, chronic anemia, skin lesion, agitation Subjective Information Per EMR, PO intake 50-100%, avg 75%. Per nurse note, pt only oriented to self. Current Diet Order/ Nutrition Support [facility] soft chopped Pertinent Medications theragran Pertinent Labs 06/08 Na 139, K 3.9, Cl 107, BUN 28, Cr 1.6, Glucose 129, A1c 4.8, Alb 3.6 Nutritional Hx/Data Height 1.78 m Height (Calculated Centimeters) 177.8 Current Weight (lbs) 68.039 kg Weight (Calculated Kilograms) 68.0 Weight (Calculated Grams) 62482.9 [place] Body Weight 166 Body Mass Index (BMI) 21.5 Weight Status Approriate GI Symptoms GI Symptoms None Last BM 06/12 x 2 Difficult in: None Skin Integrity/Comment: laceration to left ear Estimated Nutritional Goals BEE in Kcals: Using Current wt Calories/Kcals/Kg 25-30 Kcals Calculated 4024-3214 Protein: Using Current wt Protein g/k Protein Calculated 75 Fluid: ml 1875-2250ml(1ml/kcal) Nutritional Problem No current Nutrition Prob Problem N/A Intervention/Recommendation Comments 1. Continue with [facility] soft chopped diet as ordered. 2. Monitor PO intake, wt, labs and skin integrity 3. F/U as low risk in 7 days, 06/21 Expected Outcomes/Goals Expected Outcomes/Goals 1. PO intake to meet at least 75% of nutritional needs. 2. Wt stability, skin to remain intact, labs to approach WNL.
--- NOTE | 2017-07-05 20:10 | Progress Notes ---
DATE: 07/05/2017 The patient in the hospital, calm, cooperative, less picking at his ear, less agitation, likely at his baseline, remains confused, disoriented, unclear if he has a history of dementia, but certainly cognitive impairment, developmental disability, has been well documented and established. No violent behaviors. No aggression. Medications were noted. ASSESSMENT: The patient calmer, more cooperative. [facility]. [facility]# [id number]
[2017-07-06] MEDS: Levothyroxine 0.075 Mg Tab PO SCH (06:46)
[2017-07-06] MEDS: Multivitamin Tab PO SCH (08:13)
[2017-07-06] MEDS: Escitalopram Oxalate 5 mg Tab PO SCH (08:13)
[2017-07-06] MEDS: FANAPT 8 MG PO SCH (09:20)
--- NOTE | 2017-07-06 14:45 | Discharge Summary ---
DATE OF DISCHARGE: 07/06/2017 JUSTIFICATION FOR HOSPITALIZATION: The patient has history of developmental disability, agitated, hostile. HISTORY OF PRESENT ILLNESS: An 82-year-old male, confused, disoriented, rambling speech, hostile, agitated, aggressive, not safe for lower level of care. The patient disoriented on exam. Not answering any questions, babbling, and making nonsensical statements, restless in a Abida-chair. PAST PSYCHIATRIC HISTORY: Developmental disability. Concerns for cognitive decline and dementia. SOCIAL HISTORY: The patient had been residing at a fpc. Unclear social support. He is linked to the [facility]. MENTAL STATUS EXAMINATION: Please see full psych eval for details. PROVISIONAL DIAGNOSES: Developmental disability per history. There was some documentation of dementia, but this has not been validated, so currently rule out. Also psychosis, unspecified; mood, unspecified; anxiety, unspecified. Under medical, please see full H and P. HOSPITAL COURSE: After initial assessment, the patient was started on medications, which were adjusted and titrated, Seroquel for example, Namenda and Aricept were started, but no confirmation of dementia, so they were stopped. The patient on Lexapro as well because of his anxiety and mood symptoms and this did start to calm down after these medications were initiated in combination. Over the course of the hospitalization, his mood improved, affect improved, and he was more stable and calmer. He was significantly calmer and not agitated, and was discharged once placement was confirmed through the [facility]. CONDITION UPON DISCHARGE: Improved, better attention with ADLs. Fair eye contact. He is allowing ADLs, rather not aggressive. He remains impoverished in regards to his thought processes. No suicidal gestures. No evidence of psychosis. Insight and judgment is still diminished with better impulse control. Staff noting improvement. DISCHARGE DIAGNOSES: Developmental disability; psychosis, unspecified; mood, unspecified; anxiety, unspecified; rule out dementia. Under medical, please see full H and P. PROGNOSIS: The patient follows up with outpatient mental health services and remains compliant. Prognosis will improve, otherwise guarded. [facility]# [id number]
== END 2017-07-06 12:11 | DRG 885 ==
LOC: EDBD 07:30 → ER 07:30 → GERO2 11:10 → GERO 18:55
PROVIDERS: ADMIT Psychiatry & Neurology Psychiatry; ATTEND Psychiatry & Neurology Psychiatry
DX: F29 Unspecified psychosis not due to a substance or known physiological condition (principal); D64.9 Anemia, unspecified; F39 Unspecified mood [affective] disorder; F41.9 Anxiety disorder, unspecified; I10 Essential (primary) hypertension; M19.90 Unspecified osteoarthritis, unspecified site; E78.5 Hyperlipidemia, unspecified; F31.9 Bipolar disorder, unspecified; L98.9 Disorder of the skin and subcutaneous tissue, unspecified; E03.9 Hypothyroidism, unspecified; F03.90 Unspecified dementia, unspecified severity, without behavioral disturbance, psychotic disturbance, mood disturbance, and anxiety; Z88.6 Allergy status to analgesic agent; Z88.8 Allergy status to other drugs, medicaments and biological substances; Z83.3 Family history of diabetes mellitus; Z82.49 Family history of ischemic heart disease and other diseases of the circulatory system
CPT/HCPCS: 36415-UA; 71045-TC; 80053-TC; 80061-TC; 80307; 80320-TC; 80329-TC; 81001-TC; 82550-TC; 82948-90; 83036-90; 84443-TC; 84484-TC; 85025-TC; 86592-TC; 93005; 94760; 97530; J1200; J1630; X3904; Z7610